=== PATIENT | female | born 1940 | race Caucasian/White ===

== ENCOUNTER 2020-02-13 12:20 | Outpatient (CLI) | payer MEDICARE, SELFPAY ==
--- NOTE | ~2020-02-13 | XR_ITS ---
XR hip LT min 2V 02/13/2020 12:41 Indication: Left hip pain Procedure: 3 views left hip Comparison: 05/28/2015 Findings: There is mild osteoarthritis of the left hip. No fracture, subluxation or subluxation. Ther e is lower lumbar spondylosis. Sacral foramen are symmetric. No significant soft tissue abnormality. Impression: 1: Mild osteoarthritis of the left hip. Reviewed, dictated and finalized at location A. Impression: 1: Mild osteoarthritis of the left hip.
--- NOTE | ~2020-02-13 | XR_ITS ---
EXAMINATION: XR lumbar spine 2-3V DATE: 02/13/2020 12:41 INDICATION: Lumbar radiculopathy TECHNIQUE: Anteroposterior and lateral views of the lumbar spine, and cone-down lateral view of the l umbosacral junction were obtained. COMPARISON: 12/05/2010 FINDINGS: There is no fracture. There is chronic moderate loss of intervertebral disc space height at L4-5. Mild chronic loss of intervertebral disc space height is present throughout the remainder of t he lumbar spine. The vertebral body heights and alignment are normal. Small degenerative osteophytes project from the anterior endplates of multiple vertebral bodies. There is moderate facet osteoarthri tis of the lower lumbar spine. IMPRESSION: 1. Mild to moderate lumbar spondylosis without acute findings or significant interval change. Reviewed, dictated and finalized at location A. IMPRESSION: 1. Mild to moderate lumbar spondylosis without acute findings or significant in terval change.
== END 2020-02-13 12:21 | disposition home or self-care (01) ==
LOC: ANHIMG 12:26
PROVIDERS: PCP Family Medicine; Visit Provider Physician Assistant
DX: M54.16 Radiculopathy, lumbar region (principal); M25.552 Pain in left hip; M47.816 Spondylosis without myelopathy or radiculopathy, lumbar region; M16.12 Unilateral primary osteoarthritis, left hip
CPT/HCPCS: 72100; 73502

== ENCOUNTER → 2020-04-02 11:12 | Outpatient (CLI) | payer MEDICARE, SELFPAY ==
--- NOTE | ~2020-04-02 | XR_ITS ---
EXAMINATION: XR knee LT 3V DATE: 04/02/2020 11:25 INDICATION: Left knee pain. TECHNIQUE: 3 views of left knee were obtained. COMPARISON: Left knee radiographs 08/17/2012 FINDINGS: Bone alignment is normal. No fracture. There is mild osteoarthritis of medial compartment a nd moderate osteoarthritis of lateral and patellofemoral compartments. No knee joint effusion. IMPRESSION: 1. Moderate left knee osteoarthritis. Reviewed, dictated and finalized at location A.
== END ==
PROVIDERS: PCP Family Medicine; Visit Provider Physician Assistant
DX: M17.12 Unilateral primary osteoarthritis, left knee (principal)
CPT/HCPCS: 73562

== ENCOUNTER 2020-04-23 17:03 | Outpatient (CLI) | payer MEDICARE, SELFPAY ==
--- NOTE | ~2020-04-23 | MM_ITS ---
EXAMINATION: MM screening kelli BI w tobin HISTORY: Screening TECHNIQUE: Craniocaudal and mediolateral oblique 3-D tomosynthesis images were obtained and synthetic 2-D images were generated. CAD analysis was submitted and interpreted. COMPARISON: Comparison to multiple prior studies sequentially, with oldest reviewed study dated 03/29. BREAST PARENCHYMAL COMPOSITION: There are scattered areas of fibroglandular density. FINDINGS: There is no evidence of suspicious mass, calcification, or architectural distortion to sugg est malignancy in either breast. There has been no suspicious interval change. IMPRESSION: 1. No mammographic evidence of malignancy. 2. Recommend routine screening mammography in one year. BI-RADS Category 1: Negative Reviewed, dictated and finalized at location A.
== END 2020-04-23 17:04 | disposition home or self-care (01) ==
LOC: ANHIMG 17:07
PROVIDERS: PCP Family Medicine; Visit Provider Family Medicine
DX: Z12.31 Encounter for screening mammogram for malignant neoplasm of breast (principal)
CPT/HCPCS: 77063; 77067

== ENCOUNTER 2020-05-30 14:27 | Outpatient (CLI) | payer MEDICARE, SELFPAY ==
--- NOTE | 2020-05-30 | ECG_ITS ---
Measurements Intervals [place] Rate: 59 P: 61 OK: 169 QRS: 28 QRSD: 102 T: 53 QT: 414 QTc: 413 Interpretive Statements SINUS BRADYCARDIA WITH SINUS ARRHYTHMIA DELAYED PRECORDIAL R/S TRANSITION MINIMAL Q WAVES- INFERIOR LEADS BASELINE WANDER- II, III BORDERLINE ECG Electronically Signed On 05-30-2020 15:39:56 CDT by Donald Graham D.O.
[2020-05-30 15:23] LABS: Hematocrit 37.2 % (37.0-47.0); Hemoglobin 12.3 g/dL (12.0-15.0)
[2020-05-30 15:44] LABS: Albumin Level 4.3 g/dL (3.5-5.1); Estimated Glomerular Filt Rate > 60; Glucose 159 mg/dL (65-105)
[2020-05-30 16:11] LABS: Urine Cotinine NEGATIVE
[2020-05-30 17:36] LABS: Hemoglobin A1C 6.8 % (<5.7)
== END 2020-05-30 14:28 | disposition home or self-care (01) ==
LOC: ANHLAB 14:35
PROVIDERS: PCP Family Medicine; Visit Provider Orthopaedic Surgery
DX: Z01.810 Encounter for preprocedural cardiovascular examination (principal); Z01.812 Encounter for preprocedural laboratory examination; M17.12 Unilateral primary osteoarthritis, left knee; I10 Essential (primary) hypertension; E11.9 Type 2 diabetes mellitus without complications; E78.5 Hyperlipidemia, unspecified
CPT/HCPCS: 80307; 82040; 82565; 82947; 83036; 85014; 85018; 93005

== ENCOUNTER 2020-09-16 14:08 | Outpatient (CLI) | payer MEDICARE, SELFPAY ==
[2020-09-16 15:39] LABS: Basophils Percent Auto 0.6 % (0.2-1.2); Eosinophils Absolute Auto 0.2 K/mm3 (0-0.3); Eosinophils Percent Auto 2.3 % (0-4.4); Hematocrit 39.6 % (37.0-47.0); Hemoglobin 13.4 g/dL (12.0-15.0); Immature Granulocyte Absolute 0.03 K/mm3 (0.00-0.031); Immature Granulocyte Percent A 0.4 % (0-0.5); Lymphocytes Absolute Auto 1.93 K/mm3 (0.9-3.2); Lymphocytes Percent Auto 27.7 % (18.3-44.2); Mean Corpuscular HGB Conc 33.8 g/dl (32-36); Mean Corpuscular Hemoglobin 31.8 pg (26-34); Mean Corpuscular Volume 93.8 fl (80-100); Mean Platelet Volume 9.3 fl (7.4-10.4); Monocytes Absolute Auto 0.5 K/mm3 (0.1-0.6); Monocytes Percent Auto 6.9 % (2.6-8.5); Neutrophils Absolute Auto 4.3 K/mm3 (1.3-6.7); Neutrophils Percent Auto 62.1 % (45.5-73.1); Platelet Count Result 226 k/mm3 (150-375); Red Blood Count 4.22 M/mm3 (4.2-5.4)
[2020-09-16 15:41] LABS: Albumin Level 4.4 g/dL (3.5-5.1)
[2020-09-16 15:42] LABS: Anion Gap 8 mmol/L (8-16); Blood Urea Nitrogen 12 mg/dL (7-17); Calcium 9.2 mg/dL (8.4-10.2); Carbon Dioxide 31 mmol/L (22-30); Chloride 103 mmol/L (98-107); Estimated Glomerular Filt Rate > 60; Glucose 100 mg/dL (65-105); Potassium 3.2 mmol/L (3.4-5.0); Sodium 142 mmol/L (137-145)
[2020-09-16 15:43] LABS: Urine Cotinine NEGATIVE
[2020-09-16 15:44] LABS: Hemoglobin A1C 6.7 % (<5.7)
== END 2020-09-16 14:09 | disposition home or self-care (01) ==
PROVIDERS: Anesthesiology; Family Provider Family Medicine; PCP Family Medicine; Visit Provider Orthopaedic Surgery
DX: M17.12 Unilateral primary osteoarthritis, left knee (principal); E11.9 Type 2 diabetes mellitus without complications; Z01.818 Encounter for other preprocedural examination
CPT/HCPCS: 36415; 80048; 80307; 82040; 83036; 85025; 86850; 86900; 86901; 87081

== ENCOUNTER → 2020-09-23 01:01 | Outpatient (CLI) | payer MEDICARE, SELFPAY ==
[2020-09-25 18:33] LABS: SARS-CoV-2 RNA PCR Inconclusive
== END ==
PROVIDERS: Family Provider Family Medicine; PCP Family Medicine; Visit Provider Orthopaedic Surgery
DX: Z01.812 Encounter for preprocedural laboratory examination (principal); Z20.822 Contact with and (suspected) exposure to COVID-19
CPT/HCPCS: C9803; U0003; U0005

== ENCOUNTER → 2020-10-07 00:22 | Outpatient (CLI) | payer MEDICARE, SELFPAY ==
[2020-10-07 19:33] LABS: SARS-CoV-2 RNA PCR Negative
== END ==
PROVIDERS: PCP Family Medicine; Visit Provider Orthopaedic Surgery
DX: Z01.812 Encounter for preprocedural laboratory examination (principal); Z20.822 Contact with and (suspected) exposure to COVID-19
CPT/HCPCS: C9803; U0003; U0005

== ENCOUNTER 2020-10-10 01:37 | Day surgery (SDC) | payer MEDICARE, SELFPAY ==
[2020-09-16 14:17] VITALS: BMI 32.9
[2020-09-16 15:20] VITALS: BP 160/72; PULSE 58; RESP 16; TEMP 36.9; O2SAT 99
--- NOTE | 2020-09-25 11:05 | WPDANESEPPF ---
Anes - Initial Pre Proc Eval Procedure: Operation Date: 09/26/20 07:30 Proposed Procedures p Left Total Knee Arthroplasty - Fabiano Johnson MD Date/Time: 09/25/20 11:05 Surgeon: Fabiano Johnson MD Pre Op Diagnosis: Primary OA left knee Patient Data Age: 79 Gender: F Height: 1.7 m Weight: 95.4 kg Last Vital Signs Temp 36.9 C 09/16/20 15:20 Pulse 58 L 09/16/20 15:20 Resp 16 09/16/20 15:20 BP 160/72 H 09/16/20 15:20 Pulse Ox 99 09/16/20 15:20 Allergies Allergy/AdvReac Type Severity Reaction Status Date / Time erythromycin base Allergy Unknown Rash Verified 09/16/20 14:22 meperidine [From Demerol] Allergy Unknown Nausea and Verified 09/16/20 14:32 Vomiting povidone Allergy Unknown RASH Verified 09/16/20 14:20 ENLAX Allergy Unknown Unknown Uncoded 09/16/20 14:21 Home Medications Medication Instructions Recorded Confirmed Type cholecalciferol (vitamin D3) 50 100 mcg PO BID 02/13/20 09/16/20 History mcg (2,000 unit) capsule glucagon 1 mg injection kit 1 mg .ROUTE PRN PRN 02/27/20 09/16/20 History insulin NPH isoph U-100 human 100 See Rx Instructions .ROUTE .COMPLEX 02/27/20 09/16/20 History unit/mL subcutaneous suspension insulin aspart U-100 100 unit/mL 36.95 unit SUB-Q DAILY ml 02/27/20 09/16/20 History subcutaneous solution tizanidine 4 mg tablet 4 mg PO TID PRN #90 tablet 05/27/20 09/16/20 Rx atorvastatin 10 mg tablet 10 mg PO DAILY #90 tablet 06/05/20 09/16/20 Rx losartan 50 mg tablet See Rx Instructions .ROUTE 07/26/20 09/16/20 Rx .COMPLEX #90 tablet Lactobacillus acidophilus 10,000 mmu cells PO DAILY 09/16/20 09/16/20 History [Probiotic] fluoxetine 20 mg PO HS 09/16/20 09/16/20 History furosemide 20 mg PO QAM 09/16/20 09/16/20 History liraglutide 0.6 mg/0.1 mL (18 mg/3 See Rx Instructions SUBCUT .COMPLEX 09/16/20 09/16/20 History mL) subcutaneous pen injector multivitamin 1 tablet PO DAILY 09/16/20 09/16/20 History omega-3 fatty acids 100 mg 100 mg PO DAILY 09/16/20 09/16/20 History chewable tablet vitamin B complex 1 tablet PO DAILY 09/16/20 09/16/20 History PMFSH Past Medical History Medical History (Updated 09/25/20 @ 11:06 by Chad Russ MD) Acute seasonal allergic rhinitis Benign essential hypertension with target blood pressure below 140/90 DM w/o complication type II, uncontrolled Essential (primary) hypertension Gastro-esophageal reflux disease without esophagitis Hereditary and idiopathic neuropathy, unspecified History of nummular eczema Lumbar radiculopathy Major depressive disorder, single episode, unspecified Mixed hyperlipidemia Obesity Organic sleep apnea, unspecified Other specified diabetes mellitus with diabetic neuropathy, unspecified Primary central sleep apnea Restless legs syndrome Symptomatic menopausal or female climacteric states Type 2 diabetes mellitus without complications Vitamin D deficiency, unspecified Surgical History Surgical History (Updated 05/30/20 @ 14:05 by Maria Dolores Mcmillan) History of cholecystectomy (~1989) History of hysterectomy (~1983) History of left knee surgery (~2009) Family History Family History (Updated 05/30/20 @ 14:06 by Maria Dolores Mcmillan) Grandparent Diabetes mellitus Family history of kidney disease Father Hypertension Family history of coronary artery disease Family history of elevated blood lipids Family history of cardiovascular disease Unknown Arthritis Parkinsons Other Acute myocardial infarction Social History Social History Smoking status: Never smoker Additional smoking assessment comments: DENIES ANY FORM OF TOBACCO USE Alcohol intake: current Spiritual care concerns: No Anes - Eval Final PreProcedure Day of Procedure 09/25/20 11:05 Patient weight: obese Heart: regular rate and rhythm Lungs: clear to auscultation and normal air movement Airway: Mallampati scale class
--- NOTE | 2020-09-25 11:06 | WPDANESPNB ---
Anes - Peripheral Nerve Block Date/Time: 09/25/20 11:06 I have discussed with the patient/family/POA the placement of a peripheral nerve block for post-operative pain management, including associated risks, benefits, complications, and side effects. Alternative methods of post-operative analgesia were detailed. Questions were solicited and answers provided to the satisfaction of the patient/family/POA. Time-Out: A pre-procedural Time-Out was completed immediately before starting the procedure and confirmed: Patient Identification, Site, Procedure, Patient Position and the Availability of Requisite Equipment. Clinical Indications: Acute post-operative pain management requested by the operative surgeon. Nerve Block Insertion Note Needle: 22 gauge, stimulating, insulated echogenic needle.
--- NOTE | 2020-09-25 18:34 | SUR.PREOP ---
patient contacted informed case canceled for 09/26/2020 due to failed Covid test advised to follow up with the office to reschedule. Message left on Dr Johnson's cell phone.
--- NOTE | 2020-10-09 11:23 | WPDANESEPPF ---
Anes - Initial Pre Proc Eval Procedure: Operation Date: 10/10/20 07:30 Proposed Procedures p Left Total Knee Arthroplasty - Fabiano Johnson MD Date/Time: 10/09/20 11:23 Surgeon: Fabiano Johnson MD Pre Op Diagnosis: Primary OA left knee Patient Data Age: 79 Gender: F Height: 1.7 m Weight: 95.4 kg Last Vital Signs Temp 36.9 C 09/16/20 15:20 Pulse 58 L 09/16/20 15:20 Resp 16 09/16/20 15:20 BP 160/72 H 09/16/20 15:20 Pulse Ox 99 09/16/20 15:20 Allergies Allergy/AdvReac Type Severity Reaction Status Date / Time povidone-iodine AdvReac Intermediate BAD RASH Verified 10/10/20 06:29 [From Betadine] soap [From Betadine] AdvReac Intermediate BAD RASH Verified 10/10/20 06:29 erythromycin base AdvReac Mild Nausea Verified 10/10/20 06:29 meperidine [From Demerol] AdvReac Mild Nausea and Verified 10/10/20 06:29 Vomiting Home Medications Medication Instructions Recorded Confirmed Type cholecalciferol (vitamin D3) 50 100 mcg PO BID 02/13/20 09/16/20 History mcg (2,000 unit) capsule glucagon 1 mg injection kit 1 mg .ROUTE PRN PRN 02/27/20 09/16/20 History insulin NPH isoph U-100 human 100 See Rx Instructions .ROUTE .COMPLEX 02/27/20 09/16/20 History unit/mL subcutaneous suspension insulin aspart U-100 100 unit/mL 36.95 unit SUB-Q DAILY ml 02/27/20 09/16/20 History subcutaneous solution tizanidine 4 mg tablet 4 mg PO TID PRN #90 tablet 05/27/20 09/16/20 Rx atorvastatin 10 mg tablet 10 mg PO DAILY #90 tablet 06/05/20 09/16/20 Rx losartan 50 mg tablet See Rx Instructions .ROUTE 07/26/20 09/16/20 Rx .COMPLEX #90 tablet Lactobacillus acidophilus 10,000 mmu cells PO DAILY 09/16/20 09/16/20 History [Probiotic] fluoxetine 20 mg PO HS 09/16/20 09/16/20 History furosemide 20 mg PO QAM 09/16/20 09/16/20 History liraglutide 0.6 mg/0.1 mL (18 mg/3 See Rx Instructions SUBCUT .COMPLEX 09/16/20 09/16/20 History mL) subcutaneous pen injector multivitamin 1 tablet PO DAILY 09/16/20 09/16/20 History omega-3 fatty acids 100 mg 100 mg PO DAILY 09/16/20 09/16/20 History chewable tablet vitamin B complex 1 tablet PO DAILY 09/16/20 09/16/20 History Patient hx anesthesia problems: none Family hx anesthesia problems: none PMFSH Past Medical History Medical History (Updated 09/25/20 @ 11:06 by Chad Russ MD) Acute seasonal allergic rhinitis Benign essential hypertension with target blood pressure below 140/90 DM w/o complication type II, uncontrolled Essential (primary) hypertension Gastro-esophageal reflux disease without esophagitis Hereditary and idiopathic neuropathy, unspecified History of nummular eczema Lumbar radiculopathy Major depressive disorder, single episode, unspecified Mixed hyperlipidemia Obesity Organic sleep apnea, unspecified Other specified diabetes mellitus with diabetic neuropathy, unspecified Primary central sleep apnea Restless legs syndrome Symptomatic menopausal or female climacteric states Type 2 diabetes mellitus without complications Vitamin D deficiency, unspecified Surgical History Surgical History (Updated 05/30/20 @ 14:05 by Maria Dolores Mcmillan) History of cholecystectomy (~1989) History of hysterectomy (~1983) History of left knee surgery (~2009) Family History Family History (Updated 05/30/20 @ 14:06 by Maria Dolores Mcmillan) Grandparent Diabetes mellitus Family history of kidney disease Father Hypertension Family history of coronary artery disease Family history of elevated blood lipids Family history of cardiovascular disease Unknown Arthritis Parkinsons Other Acute myocardial infarction Social History Social History Smoking status: Never smoker Additional smoking assessment comments: DENIES ANY FORM OF TOBACCO USE Alcohol intake: current Alcohol use details: ONE DRINK PER MONTH Living arrangements: with family Spiritual care concerns: No
--- NOTE | 2020-10-09 11:23 | WPDANESPNB ---
Anes - Peripheral Nerve Block Date/Time: 10/09/20 11:23 I have discussed with the patient/family/POA the placement of a peripheral nerve block for post-operative pain management, including associated risks, benefits, complications, and side effects. Alternative methods of post-operative analgesia were detailed. Questions were solicited and answers provided to the satisfaction of the patient/family/POA. Time-Out: A pre-procedural Time-Out was completed immediately before starting the procedure and confirmed: Patient Identification, Site, Procedure, Patient Position and the Availability of Requisite Equipment. Clinical Indications: Acute post-operative pain management requested by the operative surgeon. Nerve Block Insertion Note Anes-nerve block: adductor canal left Patient position: supine Skin prep: chlorhexidine Needle: 22 gauge, stimulating, insulated echogenic needle. Needle length: 80 mm Technique: ultrasound Injectate: bupivacaine 0.5% with epi 5 mcg/ml (30cc - no epi) Observations: tolerated well Complications: none Procedure start time:: 716 Procedure end time:: 719
[2020-10-10] VITALS (18 sets, daily range): BP systolic 132–174; BP diastolic 41–74; PULSE 60–107; RESP 14–20; TEMP 36.1–37.2; O2SAT 91–100
--- NOTE | ~2020-10-10 | XR_ITS ---
EXAMINATION: XR knee LT 2V DATE: 10/10/2020 09:46 INDICATION: Postoperative evaluation following left total knee arthroplasty. TECHNIQUE: Anteroposterior and lateral views of the left knee were obtained. COMPARISON: 09/16/2020 FINDINGS: Left total knee arthroplasty with patellar resurfacing appears well seated and in near anatomic align ment. No fractures identified. Expected postoperative subcutaneous and intra-articular gas. IMPRESSION: 1. Left total knee arthroplasty, negative for postoperative purposes. Reviewed, dictated and finalized at location A. PATHOLOGY TECHNOLOGIST
[2020-10-10] MEDS: LACTATED RINGERS 1,000 ML 30 ML IV CONT ×2 (06:35→09:29)
[2020-10-10 06:42] LABS: Glucose Point of Care 132 (65-105)
[2020-10-10] MEDS: ACETAMINOPHEN 500 MG TABLET 1000 MG PO (06:43)
[2020-10-10] MEDS: TRANEXAMIC ACID 1,000MG/ISO100 1,000 MG/100 ML BAG 200 MG IVPB (06:46)
--- NOTE | 2020-10-10 07:13 | WPDHPUPDATE1 ---
History and Physical Update Update Date/Time: 10/10/20 07:13 History and Physical has been reviewed, including an updated exam of the patient. There are NO changes in the patient's condition. Risks, benefits, and alternatives have been discussed and questions answered. Patient agrees to proceed with procedure.
--- NOTE | 2020-10-10 07:26 | SUR.PREOP ---
0655-PT UP TO BATHROOM TO VOID.
[2020-10-10] MEDS: ceFAZolin 2 GM/D5W 50 ML 2 GM/50 ML BAG IVPB (07:32)
[2020-10-10] MEDS: GENTAMICIN BONE CEMENT REFOBACIN 1 EACH TOPICAL (08:53)
[2020-10-10 09:34] LABS: Glucose Point of Care 158 (65-105)
--- NOTE | 2020-10-10 09:34 | P.OP_ITS ---
Procedure Note - Detailed Date of procedure: 10/10/20 Pre-op diagnosis: Primary OA left knee Post-op diagnosis: same Procedure performed: Total knee arthroplasty, left Description of procedure: Bone quality was fair. Mild lateral deformity did not require a release. The femur was cut at 6? due to femoral anatomy. 4? external rotation matched the AP axis. Gap measurements were equal. Implants: [employer] size 4 cemented femur, size 4 cemented low-profile tibia, 9mm CR polyethylene insert, 35mm asymmetric polyethylene patellar component. Anesthesia: GETA and regional (subsartorial nerve block) Surgeon: Fabiano Johnson MD Strategic Client Executive: Tessa Flores PA-C Estimated blood loss (mL): 200 Drains: No Complications: None Findings: Physician animal assistant, Tessa Flores PA-C, required for surgery; including patient positioning, draping, tissue retraction, maintaining instrument position, cement removal, wound closure, and dressing placement. OPERATIVE DETAILS: The patient was given a nerve block preoperatively, and then brought to the operating room. A general anesthetic was administered. The leg was prepped and draped in the usual sterile fashion. The limb was elevated and the tourniquet inflated to 300 mmHg during initial exposure, and cementation. A longitudinal incision was created along the medial border of the patella and patellar tendon, and a minimally invasive optimized mid-vastus approach to the knee was performed. No medial release was taken. The knee was then flexed. The osteophytes were carefully removed. The intramedullary guide was placed in the femoral canal. The distal femoral resection was then taken with the oscillating saw. The collateral ligaments were carefully protected. The tibia was carefully exposed. The jig was applied, and the proximal tibia was resected according to preoperative plan. The pain really anesthetic mixture was injected into the periarticular tissues. The knee was balanced in extension, and appropriate releases were taken where needed. The anterior cruciate ligament and meniscal remnants were removed. The posterior cruciate ligament was preserved. The patella was measured. Patellar resection was carried out with the oscillating saw. The lug holes drilled. The femur was sized and rotation assessed using a combination of gap balancing, posterior referencing, and the AP axis. The 4 in 1 cutting block was used to finish the femoral cuts after equal gaps were assured. The lug holes were drilled. The osteophytes were carefully removed from the back of the knee. The knee was copiously irrigated with antibiotic solution periodically throughout the procedure. The spacer block was used to confirm equal flexion and extension gaps. Further releases were performed as needed. The tibia was sized and broached. The bony surfaces were prepared for cementing with pulsatile lavage. The real tibial component and femoral components were cemented into position. Excess cement was carefully removed. The polyethylene insert was placed. The patella component was subsequently cemented. Patellar tracking was carefully assessed. No additional releases were required. The wound was closed with #1 Vicryl suture, #2 Quill suture, 4-Rbeihy-oli suture, and 2-0 Strata-fix suture followed by Steri-Strips. A sterile bulky dressing was applied. Meticulous hemostasis was maintained throughout the procedure. There were no complications. The patient was extubated and brought to the recovery room in stable condition after the application of sterile dressing with Ezekiel bandage.
[2020-10-10] MEDS: fentaNYL CITRATE INJ (*CRX) 100 MCG/2 ML VIAL 25 MCG IV PUSH ×4 (09:56→10:08)
[2020-10-10] MEDS: HYDROmorphone HCL INJ (*CRX) 1 MG/ML SYR 0.25 MG IV PUSH ×4 (10:15→10:36)
--- NOTE | 2020-10-10 11:30 | ADMGEN ---
This patient, Melanie Hutton, was admitted to 2 Medical Room 242-01. Patient/family oriented to hospital policies and general routines including ID bracelet, bed and alarms, visiting hours, pain management, procedures, bathroom and other care routines, personal items, smoking policy, room service/diet, and visiting hours. Information on how to activate the Rapid Response Team has been discussed. Patient/Family are encouraged to report perceived risks to care and to ask questions if they do not understand what they are told or what they should do.
[2020-10-10 12:50] LABS: Glucose Point of Care 184 (65-105)
--- NOTE | 2020-10-10 13:02 | PM.IMCN ---
Assessment and Plan Assessment and plan (1) S/P total knee arthroplasty: Code(s): Z96.659 - Presence of unspecified artificial knee joint Status: Acute Assessment and Plan: Postop care per orthopedic physician. DVT prophylaxis per Orthopedic. Pain management per Orthopedic. PT and OT per orthopedics. Patient is not having any discomfort at this time. The patient did receive a nerve block according to the surgical report. (2) DM2 (diabetes mellitus, type 2): Code(s): E11.9 - Type 2 diabetes mellitus without complications Status: Chronic Assessment and Plan: We can do Accu-Cheks AC and HS as this is what she does at home. Her last A1c was approximately 6.8. As per patient. The patient is able to manage her insulin pump so continue to her lower to do so we just need to check her blood sugars since her her dexa com is not working accurately at this time. Patient is also on Victoza which looks like that has continued. Non formulary I would recommend holding this while she is in the hospital. (3) Mixed hyperlipidemia: Code(s): E78.2 - Mixed hyperlipidemia Status: Chronic Assessment and Plan: Patient was continue with her atorvastatin and [place] 3 (4) Major depressive disorder, single episode, unspecified: Code(s): F32.9 - Major depressive disorder, single episode, unspecified Status: Chronic Assessment and Plan: Patient is continue with her Prozac. She states that her depression is under control. (5) Restless legs syndrome: Code(s): G25.81 - Restless legs syndrome Status: Chronic Assessment and Plan: Patient has Zanaflex and Flexeril ordered. I would recommend holding 1 of these medications. (6) Essential (primary) hypertension: Code(s): I10 - Essential (primary) hypertension Status: Chronic Assessment and Plan: Patient has been on Lasix which was continued per orthopedics and losartan. Continue to monitor her basic metabolic panel while she is in the hospital. (7) Organic sleep apnea, unspecified: Code(s): G47.30 - Sleep apnea, unspecified Status: Chronic Assessment and Plan: Patient has been provided with a CPAP machine from the hospital. HPI Data of Consult Consult date: 10/10/20 Requesting Physician: Fabiano Johnson MD Primary Care Provider: Marques Garcia MD Family Provider: Marques Garcia MD Consult Narrative Narrative: Melanie Hutton is a 79 year old female who has a history of bilateral knee pain. The left knee pain was worse than the right. Patient had arthroscopic surgery performed left knee in 2009. She has been having pain when she gets up from a sitting position to standing and also when walking. She has had an injection in that left knee in the past. The pain wakes her up at night. The patient electively underwent a left total knee arthroplasty by Dr. Rose today. According to the note the patient was given a nerve block preoperatively. She is not having any discomfort at this time. The patient is diabetic and has her own insulin pump. However her DEXA comm is not working adequately today. The patient stated that her last A1c was approximately 6.8. She is requesting that she continue to use her own insulin pump. She has the continuous basal rate as well as boluses. The patient says that she feels somewhat sleepy but is awake enough to be able to control her own pump at this time. Please see operative note. Thank you for this consultation. Review of Systems Review of Systems: All systems reviewed & are unremarkable except as noted in HPI and below Constitutional: Constitutional: Reports as per HPI and Reports no additional constitutional complaints Eyes: Eyes: Reports as per HPI and Reports no additional eye complaints ENT: Reports system reviewed and no additional complaints, except as documented and Reports Normal hearing present Cardiovascular: C
[2020-10-10] MEDS: LOSARTAN POTASSIUM 50 MG TABLET BY MOUTH (14:28)
[2020-10-10 14:45] LABS: Glucose Point of Care 192 (65-105)
[2020-10-10] MEDS: ONDANSETRON INJ 4 MG/2 ML VIAL IV PUSH (15:37)
[2020-10-10] MEDS: SODIUM CHLORIDE 0.9% IV 1,000 ML 125 ML IV CONT (15:38)
[2020-10-10 16:41] LABS: Glucose Point of Care 147 (65-105)
--- NOTE | 2020-10-10 16:52 | PM.DS ---
DS: Admitting Diagnosis Admitting Diagnosis Admitting Diagnosis: Left knee osteoarthritis. DS: Discharge Diagnosis Discharge Diagnosis (1) S/P total knee arthroplasty: Code(s): Z96.659 - Presence of unspecified artificial knee joint Status: Acute DS: Summary Hospital Course Reason for hospitalization: Total knee arthroplasty. Hospital Course: Tolerated surgery well. Progressed appropriately with therapy. Status at Discharge Functional status at discharge: uses cane/walker Overall status at discharge: patient is progressing back to baseline Time Spent with Patient Time attestation: Total time spent providing and/or coordinating discharge services: Exam Const: General: no acute distress Resp: Effort & Inspection: normal respiratory effort Skin: Other: Wound healing well. Mepilex dressing intact. No hematoma or drainage. Neuro: Motor exam (neuro): 5/5 motor strength present throughout Sensory Exam: normal sensation Psych: Mental Status: mental status grossly normal Speech and movement: Normal speech and movement present DS: Data Data Completed and Pending Labs on day of discharge: Labs from last 24 hours 10/10/20 10/10/20 10/10/20 16:39 14:37 12:45 POC Capillary Glucose 147 H 192 H 184 H Blood Type Antibody Screen 10/10/20 10/10/20 10/10/20 09:33 06:40 06:25 POC Capillary Glucose 158 H 132 H Blood Type A Positive Antibody Screen Negative Discharge Plan Discharge Patient Disposition: Home, Self-Care Discharge Instructions: See instruction sheet. Stand Alone Forms: General Discharge Instructions Follow-up/Referrals: Fabiano Johnson MD [Physician] - Discharge Medications: New oxycodone-acetaminophen 5-325 mg tablet 1 - 2 tablet PO Q4-6H MDD 6 tablets PRN (Reason: pain) Qty: 30 RF: 0 aspirin 81 mg Tablet,Delayed Release (Dr/Ec) 81 mg PO BID Qty: 14 RF: 0 Continued cholecalciferol (vitamin D3) 50 mcg (2,000 unit) capsule 100 mcg PO BID RF: 0 glucagon 1 mg kit 1 mg .Route PRN PRN (Reason: Hyperglycemia) RF: 0 insulin aspart U-100 [Novolog U-100 Insulin aspart] 100 unit/mL solution 36.95 unit SUB-Q DAILY RF: 0 Novolin N NPH U-100 Insulin 100 unit/mL suspension See Rx Instructions .ROUTE .COMPLEX RF: 0 vitamin B complex [B Complex-Vitamin B12] Tablet 1 tablet PO DAILY RF: 0 Victoza 2-Khadar 0.6 mg/0.1 mL (18 mg/3 mL) pen injector See Rx Instructions subcut .COMPLEX RF: 0 multivitamin [Daily Multi-Vitamin] Tablet 1 tablet PO DAILY RF: 0 omega-3 fatty acids 100 mg tablet,chewable 100 mg PO DAILY RF: 0 fluoxetine 20 mg capsule 20 mg PO HS RF: 0 furosemide 20 mg tablet 20 mg PO QAM RF: 0 Probiotic 10 billion cell Capsule 10,000 mmu cells PO DAILY RF: 0 tizanidine 4 mg tablet 4 mg PO TID PRN (Reason: muscle spasticity) Qty: 90 RF: 11 atorvastatin 10 mg tablet 10 mg PO DAILY Qty: 90 RF: 3 losartan 50 mg tablet See Rx Instructions .ROUTE .COMPLEX Qty: 90 RF: 0 Quality VTE Prophylaxis VTE prophylaxis: mechanical ordered
[2020-10-10] MEDS: DOCUSATE SODIUM 100 MG CAPSULE PO (17:30)
[2020-10-10] MEDS: ASPIRIN 81 MG ENTERIC TABLET PO (17:30)
[2020-10-10] MEDS: CHOLECALCIFEROL 1,000 UNITS TABLET 4000 UNITS PO (17:31)
[2020-10-10] MEDS: MELOXICAM 7.5 MG TABLET PO (17:32)
[2020-10-10] MEDS: FLUoxetine HCL 20 MG CAPSULE PO (20:25)
[2020-10-10 22:41] LABS: Glucose Point of Care 151 (65-105)
[2020-10-10] MEDS: oxyCODONE HCL (*CRX) 5 MG TAB IR PO (23:18)
[2020-10-11 01:40] VITALS: PULSE 60; O2SAT 99
[2020-10-11 03:16] VITALS: BP 165/54; PULSE 65; RESP 16; TEMP 36.4; O2SAT 98
[2020-10-11 05:23] LABS: Basophils Percent Auto 0.3 % (0.2-1.2); Eosinophils Absolute Auto 0.1 K/mm3 (0-0.3); Eosinophils Percent Auto 0.8 % (0-4.4); Hemoglobin 10.4 g/dL (12.0-15.0); Immature Granulocyte Absolute 0.05 K/mm3 (0.00-0.031); Immature Granulocyte Percent A 0.6 % (0-0.5); Lymphocytes Absolute Auto 1.46 K/mm3 (0.9-3.2); Lymphocytes Percent Auto 16.2 % (18.3-44.2); Mean Corpuscular HGB Conc 33.5 g/dl (32-36); Mean Corpuscular Hemoglobin 31.8 pg (26-34); Mean Corpuscular Volume 94.8 fl (80-100); Mean Platelet Volume 9.6 fl (7.4-10.4); Monocytes Absolute Auto 0.8 K/mm3 (0.1-0.6); Monocytes Percent Auto 9.2 % (2.6-8.5); Neutrophils Absolute Auto 6.6 K/mm3 (1.3-6.7); Neutrophils Percent Auto 72.9 % (45.5-73.1); Platelet Count Result 167 k/mm3 (150-375); Red Blood Count 3.27 M/mm3 (4.2-5.4)
[2020-10-11 05:46] LABS: Anion Gap 1 mmol/L (8-16); Blood Urea Nitrogen 14 mg/dL (7-17); Carbon Dioxide 29 mmol/L (22-30); Chloride 108 mmol/L (98-107); Estimated CRCL calculation 61 ml/min; Estimated Glomerular Filt Rate > 60; Glucose 126 mg/dL (65-105); Potassium 4.1 mmol/L (3.4-5.0); Sodium 138 mmol/L (137-145)
[2020-10-11] MEDS: oxyCODONE HCL (*CRX) 5 MG TAB IR PO ×2 (06:07→11:09)
[2020-10-11 07:21] LABS: Glucose Point of Care 179 (65-105)
[2020-10-11] MEDS: HOME MEDICATION 1 EACH XX (07:56)
[2020-10-11 08:21] VITALS: BP 134/47; PULSE 59; RESP 16; TEMP 35.5; O2SAT 96
[2020-10-11] MEDS: CHOLECALCIFEROL 1,000 UNITS TABLET 4000 UNITS PO (09:24)
[2020-10-11] MEDS: VITAMIN B COMPLEX CAPSULE 1 CAP PO (09:25)
[2020-10-11] MEDS: MULTIVITAMINS THERAPEUTIC TAB (*BKC) 1 TABLET PO (09:25)
[2020-10-11] MEDS: ACIDOPHILUS/BULGARICUS CHEWABLE TABLET 1 TABLET PO (09:25)
[2020-10-11] MEDS: FUROSEMIDE 20 MG TABLET PO (09:25)
[2020-10-11] MEDS: DOCUSATE SODIUM 100 MG CAPSULE PO (09:26)
[2020-10-11] MEDS: LOSARTAN POTASSIUM 50 MG TABLET BY MOUTH (09:26)
[2020-10-11] MEDS: ASPIRIN 81 MG ENTERIC TABLET PO (09:27)
[2020-10-11] MEDS: MELOXICAM 7.5 MG TABLET PO (09:27)
--- NOTE | 2020-10-11 10:07 | PM.IMPN ---
Progress Note: A&P Assessment and Plan (1) S/P total knee arthroplasty: Code(s): Z96.659 - Presence of unspecified artificial knee joint Status: Acute Assessment and Plan: POD [address] Johnson. Doing well post op. Plans for discharge today. Okay for discharge from medical standpoint Post op care, pain management, PT/OT, DVT ppx per primary service F/u with Ortho and PCP as outpatient (2) DM2 (diabetes mellitus, type 2): Code(s): E11.9 - Type 2 diabetes mellitus without complications Status: Chronic Assessment and Plan: BGL seems well controlled at this time. A1c earlier this month was 6.7. Patient has insulin pump Continue home medications and insulin pump at discharge Accuchecks ACHS, hypoglycemia protocol, correctional insulin, diabetic diet during stay (3) Mixed hyperlipidemia: Code(s): E78.2 - Mixed hyperlipidemia Status: Chronic Assessment and Plan: Continue home medications (4) Major depressive disorder, single episode, unspecified: Code(s): F32.9 - Major depressive disorder, single episode, unspecified Status: Chronic Assessment and Plan: No acute issues Continue home medications (5) Restless legs syndrome: Code(s): G25.81 - Restless legs syndrome Status: Chronic Assessment and Plan: No acute issues Continue home medications (6) Essential (primary) hypertension: Code(s): I10 - Essential (primary) hypertension Status: Chronic Assessment and Plan: BP was elevated yesterday but nursing reports she was unable to take losartan due to n/v. 130s most recently Continue home medications Instructed patient to check BP once daily after discharge to monitor BP (7) Organic sleep apnea, unspecified: Code(s): G47.30 - Sleep apnea, unspecified Status: Chronic Assessment and Plan: CPAP during stay Additional Plan Thank you for allowing the Hospitalist team to care for this patient during their stay. Okay for discharge from medical standpoint; will sign off if patient does not discharge today. Please call with any questions Subjective Date/time seen: 10/11/20 10:07 This is a Hospitalist Consult Progress Note Interval history: Patient is a 79 yo F with history of HTN, DMII (has insulin pump), GERD, MDD, among other comorbid conditions who is here for elective left TKA per Dr. Johnson POD1; Hospitalist group consulted for medical management of comorbid conditions. Patient states she is doing well today. Pain well controlled. Has sensation in her left leg/foot. Anticipating discharge today. She notes she had some n/v yesterday and was unable to take some of her home BP meds, but is feeling fine today. No other complaints. Denies f/c/s, headaches, dizziness, lightheadedness, cp/palpitations, sob/cough, n/v/d/c, abd pain, changes in BMs, dysuria, hematuria, cloudy urine Review of Systems Review of Systems: All systems reviewed & are unremarkable except as noted in HPI and below Exam Narrative: Exam Narrative: General: Patient resting supine in bed in no acute distress. HEENT: Normocephalic, EOMI, oral mucosa moist. Cardiovascular: Rate and rhythm are regular. No notable murmur, rub, or gallop. Respiratory: Lungs clear to auscultation anterolateral lung yuan. Non-labored breathing. Abdomen: Soft, non-tender, non-distended, bowel sounds present. Extremities: Peripheral pulses intact. No edema. NTTP b/l calves. Left knee has ice pack applied. Left leg NVI distal to surgical site Neuro: No focal neurological deficits. Speech is clear. Objective Data Vital Signs Vital Signs: Last Vital Signs Temp 96 F L 02/
--- NOTE | 2020-10-11 10:50 | WPDANESPN ---
Anes - Prog Note Post-Op Date/Time: 10/11/20 10:50 Cardiovascular status: normal Respiratory status: normal Airway patency: baseline Mental status: baseline Post-Op hydration status: normal Vital Signs: Last Vital Signs Temp 35.5 C L 10/11/20 08:21 Pulse 59 L 10/11/20 08:21 Resp 16 10/11/20 08:21 BP 134/47 L 10/11/20 08:21 Pulse Ox 96 10/11/20 08:21 Pain Score (VAS): 0 I/O: Intake & Output 10/10/20 10/11/20 10/11/20 23:59 07:59 15:59 Intake Total 1300 450 100 Balance 1300 450 100 Laboratory Tests 10/11/20 04:58 10/11/20 04:58 10/10/20 10/10/20 10/10/20 12:45 14:37 16:39 WBC RBC Hgb Hct MCV MCH MCHC RDW Plt Count MPV Immature Gran % (Auto) Neut % (Auto) Lymph % (Auto) [place] % (Auto) Eos % (Auto) Baso % (Auto) Lymph # (Auto) [place] # (Auto) Eos # (Auto) Baso # (Auto) Abs Immat Gran (auto) Absolute Neuts (auto) Absolute Nucleated RBC Nucleated RBC % Sodium Potassium Chloride Carbon Dioxide Anion Gap BUN Creatinine Estim Creat Clear Calc Estimated GFR Glucose POC Capillary Glucose 184 H 192 H 147 H Calcium 10/10/20 10/11/20 10/11/20 21:51 04:58 04:58 WBC 9.0 RBC 3.27 L Hgb 10.4 L D Hct 31.0 L MCV 94.8 MCH 31.8 MCHC 33.5 RDW 13.0 Plt Count 167 MPV 9.6 Immature Gran % (Auto) 0.6 H Neut % (Auto) 72.9 Lymph % (Auto) 16.2 L [place] % (Auto) 9.2 H Eos % (Auto) 0.8 Baso % (Auto) 0.3 Lymph # (Auto) 1.46 [place] # (Auto) 0.8 H Eos # (Auto) 0.1 Baso # (Auto) 0.0 Abs Immat Gran (auto) 0.05 H Absolute Neuts (auto) 6.6 Absolute Nucleated RBC 0.0 Nucleated RBC % 0.0 Sodium 138 Potassium 4.1 Chloride 108 H Carbon Dioxide 29 Anion Gap 1 L BUN 14 Creatinine 0.80 Estim Creat Clear Calc 61 Estimated GFR > 60 Glucose 126 H POC Capillary Glucose 151 H Calcium 8.0 L 10/11/20 07:07 WBC RBC Hgb Hct MCV MCH MCHC RDW Plt Count MPV Immature Gran % (Auto) Neut % (Auto) Lymph % (Auto) [place] % (Auto) Eos % (Auto) Baso % (Auto) Lymph # (Auto) [place] # (Auto) Eos # (Auto) Baso # (Auto) Abs Immat Gran (auto) Absolute Neuts (auto) Absolute Nucleated RBC Nucleated RBC % Sodium Potassium Chloride Carbon Dioxide Anion Gap BUN Creatinine Estim Creat Clear Calc Estimated GFR Glucose POC Capillary Glucose 179 H Calcium Post-procedural complaints: none Patient Feedback: Patient satisfied with anesthetic care.
[2020-10-11 10:54] VITALS: BP 157/54; PULSE 62; RESP 16; TEMP 36.3; O2SAT 98
--- NOTE | 2020-10-11 14:18 | PC.NURSE ---
On 10/11/20, the student, [Steven Mann ], provided care and completed [facility] documentation on this patient. I have reviewed the student's documentation and agree with the findings.
== END 2020-10-11 11:11 | disposition home or self-care (01) ==
LOC: ANHSURGERY 05:59 → ANH2MED 11:47
PROVIDERS: Family Provider Family Medicine; PCP Family Medicine; Visit Provider Orthopaedic Surgery
PROC: (CPT 27447; principal; 2020-10-10 07:30)
DX: M17.12 Unilateral primary osteoarthritis, left knee (principal); G89.18 Other acute postprocedural pain; I10 Essential (primary) hypertension; E11.9 Type 2 diabetes mellitus without complications; K21.9 Gastro-esophageal reflux disease without esophagitis; L30.9 Dermatitis, unspecified; G47.31 Primary central sleep apnea; G25.81 Restless legs syndrome; E11.40 Type 2 diabetes mellitus with diabetic neuropathy, unspecified; E55.9 Vitamin D deficiency, unspecified; E78.2 Mixed hyperlipidemia; M54.16 Radiculopathy, lumbar region; F32.9 Major depressive disorder, single episode, unspecified; Z90.49 Acquired absence of other specified parts of digestive tract
CPT/HCPCS: 64447; 27447; 36415; 73560; 80048; 82948; 85025; 86850; 86900; 86901; 97110; 97116; 97161; 97165; 97530; 97535; A9270; C1713; C1776; J0131; J0171; J0690; J1170; J1885; J2270; J2405; J2704; J2795; J3010; J7030; J7120

== ENCOUNTER 2020-11-01 12:58 | Outpatient (CLI) | payer MEDICARE, SELFPAY | END 2020-11-01 12:59 | disposition home or self-care (01) | LOC: ANHCOVIDVC 12:58 | PROVIDERS: PCP Family Medicine | DX: Z23 Encounter for immunization (principal) | CPT/HCPCS: 0001A; 91300 ==

== ENCOUNTER 2020-11-22 13:00 | Outpatient (CLI) | payer MEDICARE, SELFPAY | END 2020-11-22 13:01 | disposition home or self-care (01) | LOC: ANHCOVIDVC 13:00 | PROVIDERS: PCP Family Medicine | DX: Z23 Encounter for immunization (principal) | CPT/HCPCS: 0002A; 91300 ==

== ENCOUNTER 2021-04-25 14:10 | Outpatient (CLI) | payer MEDICARE, SELFPAY ==
--- NOTE | ~2021-04-25 | MM_ITS ---
EXAMINATION: MM screening [facility] BI w [facility]bin HISTORY: Screening mammogram TECHNIQUE: Craniocaudal and mediolateral oblique 3-D tomosynthesis images were obtained and synthetic 2-D images were generated. CAD analysis was submitted and interpreted. COMPARISON: 04/23/2020, 04/11/2019, 03/16/2018 by lateral digital screening mammogram examinations BREAST PARENCHYMAL COMPOSITION: The breasts are almost entirely fatty. FINDINGS: There is no evidence of suspicious mass, calcification, or architectural distortion to sugg est malignancy in either breast. There has been no suspicious interval change. IMPRESSION: 1. No mammographic evidence of malignancy. 2. Recommend routine screening mammography in one year. BI-RADS Category 1: Negative Reviewed, dictated and finalized at location A.
== END 2021-04-25 14:11 | disposition home or self-care (01) ==
PROVIDERS: PCP Family Medicine; Visit Provider Family Medicine
DX: Z12.31 Encounter for screening mammogram for malignant neoplasm of breast (principal)
CPT/HCPCS: 77063; 77067

== ENCOUNTER 2021-05-23 10:21 | Emergency (ER) | payer MEDICARE, SELFPAY ==
--- NOTE | ~2021-05-23 | CT_ITS ---
EXAMINATION: CT cervical spine wo con DATE: 05/23/2021 13:45 INDICATION: Right shoulder pain and weakness post lifting injury TECHNIQUE: Computed tomography (CT) of the cervical spine was performed without intravenous contrast. Automated exposure control and iterative reconstruction technique were employed. The dose-length pro duct was 347.22 mGy-cm. COMPARISON: None FINDINGS: 1 mm anterolisthesis C3 on C4 and 1-2 mm anterolisthesis C4 on C5. Vertebral body heights are normal. No fracture. Mild disc height loss at C4-C5 and C5-C6. Atherosclerotic calcifications at the bilater al carotid bulbs. Cervical soft tissues are otherwise unremarkable. Visualized portions of the spheno id sinus, bilateral mastoid air cells and middle ear cavities, airway and apices of lungs are clear. The following disc levels are specifically discussed: C2-C3: Disc is mildly bulging. There is mild bilateral uncovertebral joint osteoarthritis. There is m ild right facet joint osteoarthritis. The left facet joint is fused. There is no neural foraminal arely nosis. There is minimal central canal stenosis. C3-C4: Risk is mildly bulging. There is altered left and minimal right uncovertebral joint osteoarthr itis. There is mild right and moderate left facet joint osteoarthritis. There is minimal left neural foraminal stenosis. There is minimal central canal stenosis. C4-C5: Disc is mildly bulging. There is mild bilateral uncovertebral joint osteoarthritis. There is m oderate bilateral facet joint osteoarthritis. There is no neural foraminal stenosis. There is minimal central canal stenosis. C5-C6: Mild posterior disc osteophyte complex. There is mild to moderate bilateral uncovertebral join t osteoarthritis. There is mild bilateral facet joint osteoarthritis. There is mild left neural madhuri inal stenosis. There is mild central canal stenosis. C6-C7: Disc is bulging. There is mild bilateral uncovertebral joint osteoarthritis. There is mild rig ht and mild to moderate left facet joint osteoarthritis. There is no neural foraminal stenosis. There is mild central canal stenosis. C7-T1: The disc does not extend beyond the endplate margin. There is mild right uncovertebral joint o steoarthritis. There is mild bilateral facet joint osteoarthritis. There is no neural foraminal steno sis. There is no central canal stenosis. IMPRESSION: 1. Mild cervical spondylosis. No acute osseous abnormality. Reviewed, dictated and finalized at location A.
--- NOTE | ~2021-05-23 | CT_ITS ---
EXAMINATION: CT thoracic spine wo con DATE: 05/23/2021 13:45 INDICATION: Right shoulder pain and weakness. Thoracic spine injury. TECHNIQUE: Computed tomography (CT) of the thoracic spine was performed without intravenous contrast. Automated exposure control and iterative reconstruction technique were employed. The dose-length pro duct was 890.98 mGy-cm. COMPARISON: None FINDINGS: There is 9 degrees levocurvature of thoracic spine. Vertebral body heights are normal. Ther e is mildly decreased disc height at multiple levels in mid thoracic spine. There is multilevel facet joint osteoarthritis, severe on the right at T2-T3 and T3-T4 and on the left at T1-T2 and T2-T3. The re is multilevel mild neural foraminal stenosis bilaterally. There is moderate neural foraminal steno sis on the right at T3-T4. There is mild central canal stenosis at T10-T11 and T12-L1. IMPRESSION: 1. No fracture. 2. Mild thoracic spondylosis. Reviewed, dictated and finalized at location A.
[2021-05-23 10:28] VITALS: BP 174/70; PULSE 60; RESP 20; TEMP 36.8; O2SAT 99
[2021-05-23 11:07] VITALS: BP 186/73; PULSE 52; RESP 18; O2SAT 100
--- NOTE | 2021-05-23 14:18 | ED.NECK ---
HPI - Neck Pain/Injury General Chief Complaint: Extremity Injury, Upper Stated Complaint: right shoulder pain Time Seen by Provider: 05/23/21 12:19 Source: patient Mode of arrival: ambulatory Limitations: no limitations History of Present Illness complaint: neck pain Onset (ago): week(s) (1) Place: home Radiation: right lateral and right shoulder Severity: moderate Quality: sharp and throbbing Duration: constant Relieving factors: none and remaining still Exacerbating factors: movement of extremity and movement of neck Context: unknown Associated symptoms: tingling (R shoulder) Treatments prior to arrival: ibuprofen and other (prednisone) Related Data Home Medications Medication Instructions Recorded Confirmed cholecalciferol (vitamin D3) 50 100 mcg PO BID 02/13/20 03/11/21 mcg (2,000 unit) capsule glucagon 1 mg injection kit 1 mg .ROUTE PRN PRN 02/27/20 03/11/21 insulin NPH isoph U-100 human 100 See Rx Instructions .ROUTE .COMPLEX 02/27/20 03/11/21 unit/mL subcutaneous suspension insulin aspart U-100 100 unit/mL 36.95 unit SUB-Q DAILY ml 02/27/20 03/11/21 subcutaneous solution Probiotic 10,000 mmu cells PO DAILY 09/16/20 03/11/21 liraglutide 0.6 mg/0.1 mL (18 mg/3 See Rx Instructions SUBCUT .COMPLEX 09/16/20 03/11/21 mL) subcutaneous pen injector multivitamin 1 tablet PO DAILY 09/16/20 03/11/21 omega-3 fatty acids 100 mg 100 mg PO DAILY 09/16/20 03/11/21 chewable tablet vitamin B complex 1 tablet PO DAILY 09/16/20 03/11/21 Allergies Allergy/AdvReac Type Severity Reaction Status Date / Time povidone-iodine AdvReac Intermediate BAD RASH Verified 05/23/21 11:12 [From Betadine] soap [From Betadine] AdvReac Intermediate BAD RASH Verified 05/23/21 11:12 erythromycin base AdvReac Mild Nausea Verified 05/23/21 11:12 meperidine [From Demerol] AdvReac Mild Nausea and Verified 05/23/21 11:12 Vomiting Review of Systems Review of Systems: CONSTITUTIONAL: no fever, no weight loss, no confusion EYES: no vision changes, no eye pain ENT: no rhinorrhea, no sore throat, no difficulty swallowing Neck: neck pain, no torticollis CARDIOVASCULAR: no chest pain, no leg edema, no palpitations RESPIRATORY: no cough, no shortness of breath, no hemoptysis GASTROINTESTINAL: no abdominal pain, no nausea, no vomiting, no diarrhea GENITOURINARY: no flank pain, no dysuria, no hematuria SKIN: no rash, no jaundice MUSCULOSKELETAL: no back pain, no trauma. NEUROLOGIC: No headache, no dizziness, no focal weakness PSYCHIATRIC: No hallucinations, no suicidal ideation [facility] Past Medical History Medical History Acute seasonal allergic rhinitis Benign essential hypertension with target blood pressure below 140/90 Diabetic retinopathy DM w/o complication type II, uncontrolled DM2 (diabetes mellitus, type 2) Essential (primary) hypertension Gastro-esophageal reflux disease without esophagitis Hereditary and idiopathic neuropathy, unspecified History of nummular eczema Lumbar radiculopathy Macular degeneration Major depressive disorder, single episode, unspecified Mixed hyperlipidemia Obesity Organic sleep apnea, unspecified Other specified diabetes mellitus with diabetic neuropathy, unspecified Primary central sleep apnea Restless legs syndrome Symptomatic menopausal or female climacteric states Type 2 diabetes mellitus without complications Vitamin D deficiency, unspecified Surgical History Surgical History History of cholecystectomy (~1989) History of hysterectomy (~1983) History of left knee surgery (~2009) S/P total knee arthroplasty On the left Family History Family History Grandparent Diabetes mellitus Family history of kidney disease Father Hypertension Family history of coronary artery disease Family history of elevated blood lipids Fa
[2021-05-23 15:44] VITALS: PULSE 57; RESP 18; TEMP 36.3; O2SAT 100
== END 2021-05-23 15:46 | disposition home or self-care (01) ==
PROVIDERS: Emergency Provider Emergency Medicine; PCP Family Medicine
DX: M47.812 Spondylosis without myelopathy or radiculopathy, cervical region (principal); E11.319 Type 2 diabetes mellitus with unspecified diabetic retinopathy without macular edema; E11.40 Type 2 diabetes mellitus with diabetic neuropathy, unspecified; H35.30 Unspecified macular degeneration; I10 Essential (primary) hypertension; K21.9 Gastro-esophageal reflux disease without esophagitis; E78.2 Mixed hyperlipidemia; G47.31 Primary central sleep apnea; E55.9 Vitamin D deficiency, unspecified; G60.9 Hereditary and idiopathic neuropathy, unspecified; Z96.652 Presence of left artificial knee joint; Z79.4 Long term (current) use of insulin; M47.814 Spondylosis without myelopathy or radiculopathy, thoracic region
CPT/HCPCS: 72125; 72128; 99284

== ENCOUNTER 2024-10-16 01:40 | Inpatient (IN) | payer MEDICARE, SELFPAY ==
[2024-10-16] VITALS (23 sets, daily range): BP systolic 108–177; BP diastolic 47–78; PULSE 45–55; RESP 11–144; TEMP 36.6–37.2; O2SAT 96–100; BMI 31.6
--- NOTE | ~2024-10-16 | XR_ITS ---
EXAMINATION: XR chest 2V DATE: 10/19/2024 09:06 INDICATION: Pacer placement. TECHNIQUE: Frontal and lateral views of the chest were obtained. COMPARISON: Chest view 10/18/2024, CT thoracic spine 05/23/2021 FINDINGS: The lung volumes are normal. There is a diffuse interstitial pattern in the lungs with a lo wer lung predominance. There are small pleural effusions. No pneumothorax. The heart size is normal. There is a left chest wall pacer with leads in the right atrium and right ventricle. Surgical clips i n the right upper quadrant are likely from cholecystectomy. IMPRESSION: 1. Diffuse interstitial pattern in the lungs, consistent with mild pulmonary edema and/or chronic int erstitial lung disease. 2. Small pleural effusions. Reviewed, dictated and finalized at location [] ONAL SERVICE OFFICER IMPRESSION: 1. Diffuse interstitial pattern in the lungs, consistent with mild pulmonary ed louann and/or chronic interstitial lung disease. 2. Small pleural effusions.
--- NOTE | ~2024-10-16 | XR_ITS ---
Portable chest x-ray Comparison: 05/20/2017 Clinical History: Chest pain Findings: Probable mild bibasilar chronic interstitial change or COPD change. Cardiomediastinal jose houette is stable. Bones and soft tissues are unremarkable. Impression: No definite acute abnormality. COPD and/or bibasilar chronic interstitial change. Reviewed, dictated and finalized at [facility]. L NUMERICAL CONTROL PROGRAMMER Impression: No definite acute abnormality. COPD and/or bibasilar chronic interstitial change.
--- NOTE | ~2024-10-16 | XR_ITS ---
XR chest 1V portable Ordering provider: Kenyon Snow MD History: 83 years Female with . pacemaker insertion . Comparison: October 16, 2024 FINDINGS: MEDIASTINUM: The cardiac silhouette is not enlarged. Left bipolar pacemaker. Slightly congestive kathia . LUNGS: No effusions or pneumothorax. Bilateral interstitial changes which may indicate pneumonitis ve rsus edema. Underlying fibrotic changes are not excluded. Clinical correlation advised. Prominent markings in the lower lobes are noted. OTHER: No free air under the diaphragm. IMPRESSION: No significant change from previous examination. Reviewed, dictated and finalized at location A. AGE HANDLER
--- OUTSIDE RECORDS SUMMARY | 2024-10-16 01:42 | XMS_ITS | Encounter Summary ---
Author Organization [facility] Address [address] [place] [address] Care Team Providers Care Toolroom Helper Name Role Phone Joshua Muir MD Primary Care Provider Encounter Details Date Type Department Care Team (Late st Contact Info) Description 10/02/2024 Results Follow-Up [facility] Family Medicine at [address] [place] [id number] Joshua Muir MD [address] [place] [address] [id number] Social History Tobacco Use Types Packs/Day Years Used Date Smoking Tobacco: Never Smokeless Tobacco: Never AUDIT-C Answer Date Recorded Q1: How often do you have a drink containing alc ohol? Monthly or less 08/30/2023 Q2: How many drinks containi ng alcohol do you have on a typical day when you are drinking? 1 or 2 08/30/2023 Q3: How often do you have si x or more drinks on one occasion? 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
--- OUTSIDE RECORDS SUMMARY | 2024-10-16 01:42 | XMS_ITS | Encounter Summary ---
Author Organization [facility] Healthcare Address [address] [place] [address] Care Team Providers Care [employer]anc[employer] Name Role Phone Cachorro Garcia MD Primary Care Provider [phone] Reason for Visit * Diagnostic Imaging (Routine) - Closed Specialty Diagnoses / Procedures Referred By Leti rice Referred To Contact Procedures Breast Imaging Screening Outside Reference Referral, Self Referral ID Status Reason Start Date Expiration Date Visits Re quested Visits Authorized [id number] Closed 08/20/2022 09/19/2023 1 1 Encounter Details Date Type Department Care Team (Late st Contact Info) Description 03/16/2018 Hospital Encounter [facility] [address] [place] [address] Social History Tobacco Use Types Packs/Day Years [...] on file Legal Sex Female 3:58 AM UI APPLICATION DEVELOPER Gender Identity Not on file Sexual Orientation Not on file documented as of this encounter Functional Status * Audit-C Score Answer Date of Assessment Author 1 08/30/2023 2:01 PM Curt Rehman MA * Question Answer Date of Assessment Author Q1: How often do you have a drink containing alcohol? Monthly or less 08/30/2023 2:01 PM Sindhu Rehman MA Q2: How many drinks containing alcohol do you have on a typical day when you are drinking? 1 or 2 08/30/2023 2:01 PM Solange Rehman MA Q3: How often do you have six or more drinks on one occasion? Never 08/30/2023 2:01 PM Sindhu Rehman MA documented as of this encounter Plan of Treatment Not on file documented as of this encounter Procedures Procedure Name Priority Date/Time Associated Diagnosis Comments BREAST IMAGING MG SCREENING OUTSIDE REFERENCE Routine 03/16/2018 12:00 AM CDT documented in this encounter Results * Breast Imaging Screening Outside Reference (03/16/2018 12:00 AM CDT) Impressions [facility] - 08/20/2022 11:27 AM UI APPLICATION DEVELOPER These images are for Reference purposes only and have not been reviewed by [facility]. There will be no report generated by a [facility] Radiologist. Narrative [facility] - 08/20/2022 11:27 AM UI APPLICATION DEVELOPER EXAMINATION: Images For Reference Purposes Only us Self Referral IMG MAMMO PROCEDURES Final Resul t [facility] documented in this encounter Visit Diagnoses Not on filedocumented in this encounter Care Teams [employer] Relationship Specialty Start Date End Date Cachorro Garcia MD [address] [place] [address] PCP - General 12/07/16 06/11/21 documented as of this encounter
--- OUTSIDE RECORDS SUMMARY | 2024-10-16 01:43 | XMS_ITS | Encounter Summary ---
Author Organization [facility] Healthcare Address [address] [place] [address] Care Team Providers Care Axle Turner Name Role Phone Cachorro Garcia MD Primary Care Provider Reason for Visit * Diagnostic Imaging (Routine) - Closed Specialty Diagnoses / Procedures Referred By Leti rice Referred To Contact Procedures Breast Imaging Screening Outside Reference Referral, Self Referral ID Status Reason Start Date Expiration Date Visits Re quested Visits Authorized [id number] Closed 08/20/2022 09/19/2023 1 1 Encounter Details Date Type Department Care Team (Late st Contact Info) Description 04/11/2019 Hospital Encounter [facility] [address] [place] [id number] Social History Tobacco Use Types Packs/Day Years [...] on file Legal 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 There will be no report generated by a [facility] Radiologist. Narrative [facility] - 08/20/2022 11:27 AM LIGHT INDUSTRIAL SUPERVISOR EXAMINATION: Images For Reference Purposes Only us Self Referral IMG MAMMO PROCEDURES Final Resul t [facility] documented in this encounter Visit Diagnoses Not on filedocumented in this encounter Care Teams Axle Turner Relationship Specialty Start Date End Date Cachorro Garcia MD [address] [place] [address] PCP - General 12/07/16 06/11/21 documented as of this encounter
--- OUTSIDE RECORDS SUMMARY | 2024-10-16 01:43 | XMS_ITS | Clinical Summary ---
Author Organization [facility] Address [address] [place] [address] Care Team Providers Care Flexible Babysitter Name Role Phone Joshua Muir MD Primary Care Provider [phone] Allergies Active Allergy Reactions Criticality Noted Date Comments Erythromycin Hives Medium Medications insulin syringe-needle U-100 1/2 mL 31 gauge x 15/64 syringe USE DIRECTED WHEN OFF PUMP 05/29/20 15 Active yuybheys-tpm-b jaj-HH-bfqyyw 8 mg iron-400 mcg-300 mcg tablet daily. 09/28/19 12 Active omega 3-jro-zkp-fish oil 300-1,000 mg capsule daily. 09/28/19 12 Active lancets 28 gauge misc test 6 times daily as directed 03/23/20 12 Active cholecalcifero l (VITAMIN D-3) 2000 unit capsule take 2 capsule bid 09/28/19 12 Active blood glucose diagnostic (FREESTYLE LITE STRIPS) strip Use to test blood sugar 3 times a day Freestyle lite Dx Code E11.42 100 each 11 12/21/19 19 Active magnesium 30 mg tablet Take 1 tablet (30 mg total) by mouth 2 (two) times a day Active calcium acetate,phosph at bind, (PHOSLO) 667 mg tablet Take 2 tablets (1,334 mg total) by mouth 3 (three) times a day with meals Active pen needle, diabetic (BD Ultra-Fine Mini Pen Needle) 31 gauge x 3/16 needleIndicati ons:Type 2 diabetes mellitus with hyperglycemia, with long-term current use of insulin (HCC) Use daily with victoza 100 each 3 08/31/19 24 Active furosemide (LASIX) 20 mg tablet TAKE 1 TABLET EVERY DAY 90 tablet 3 03/22/20 24 Active atorvastatin (LIPITOR) 10 mg tablet TAKE 1 TABLET EVERY DAY 90 tablet 3 03/22/20 24 Active losartan (COZAAR) 50 mg tablet TAKE 1 TABLET EVERY DAY 90 tablet 3 03/22/20 24 Active diphenhydrAMIN E 25 mg capsule Take 1 tablet/capsule (25 mg total) by mouth nightly as needed for sleep Active semaglutide 0.25 mg or 0.5 mg (2 mg/3 mL) pen injector injectionIndic ations:type 2 diabetes mellitus Inject 0.5 mg under the skin once a week 9 mL 3 08/22/19 25 026 Active Additional Information Patient taking differently:0.5 mg subcutaneous Weekly,Finishing victosa before starting, Indications: type 2 diabetes mellitus, Reported on 10/02/2024 gabapentin (NEURONTIN) 100 mg capsuleIndicat ions:Diabetic Peripheral Neuropathy Take 1 capsule (100 mg total) by mouth 3 (three) times a day 90 capsule 11 08/22/19 25 Active glucagon 1 mg kitIndications :Type 2 diabetes mellitus with hyperglycemia, with long-term current use of insulin ([facility]) Inject for severe hypoglycemia 1 kit 2 08/22/19 25 Active insulin aspart (NovoLOG) 100 unit/mL vial for injectionIndic ations:Type 2 diabetes mellitus with hyperglycemia, with long-term current use of insulin ([facility]) Use 140 units daily via insulin pump. Dx E11.42 130 mL 3 08/22/19 25 Active tobramycin-dex AMETHasone (TOBRADEX) ophthalmic solution INSTILL 1 DROP IN THE LEFT EYE 4 TIMES PER DAY FOR 1 WEEK 08/04/20 24 025 Discontinu ed(Therapy completed) benzonatate (TESSALON) 200 mg capsule Take 1 capsule (200 mg total) by mouth 3 (three) times a day as needed for cough for up to 7 days 20 capsule 09/18/19 25 025 doxycycline (VIBRAMYCIN) 100 mg capsule Take 1 tablet/capsule (100 mg total) by mouth 2 (two) times a day for 10 days 20 tablet/capsu le 09/18/19 25 025 levoFLOXacin (LEVAQUIN) 750 mg tablet Take 1 tablet (750 mg total) by mouth daily for 7 days 7 tablet 10/04/19 25 025 Active Problems Problem Noted Date Diagnosed Date Dysuria 05/23/2024 Assessment & Plan (05/23/2024 1:09 PM CDT): New problem x1 mo. Will obtain UA/Cx. Verified that she uses mychart. Aware to check results/results letter in [employer]. Will contact by phone if needed. Aware to increase water intake. Will sent message with results. Verified abx allergy only to erythromycin. Verified pharmacy. Push fluids-water/cranberry juice Avoid caffeine Wash before and after sex Urinate right after sex Use dove type soap in vaginal area-no scents or dyes Take showers not baths, no bubble baths Proper wiping technique discussed Hypertension associated with type 2 diabetes zora litus 12/02/2022 Assessment & Plan (08/22/2024 12:59 PM WINDOWS SERVER SPECIALIST): Chronic problem. Controlled on current regimen. Currently taking Losartan 50mg daily, lasix 20mg daily. No changes at this time. Assessment & Plan (05/23/2024 1:07 PM CDT): Chronic problem. Controlled on current regimen. Currently taking Losartan 50mg daily, lasix 20mg daily. No changes at this time. Assessment & Plan (02/23/2024 1:00 PM CDT): Chronic problem. Controlled on current regimen. Currently taking Losartan 50mg daily, lasix 20mg daily. No changes at this time. Assessment & Plan (08/31/2023 1:26 PM WINDOWS SERVER SPECIALIST): Chronic problem. Controlled on current regimen. Currently taking Losartan 50mg daily, lasix 20mg daily. No changes at this time. Assessment & Plan (06/07/2023 10:19 AM CDT): Chronic problem. Controlled on current regimen. Currently taking Losartan 50mg daily, lasix 20mg daily. No changes at this time. Assessment & Plan (03/09/2023 2:47 PM CDT): Chronic, well controlled Importance of low salt diet and exercise were discussed Continue current meds Assessment & Plan (12/03/2022 1:11 PM CDT): Chronic problem. Controlled on current regimen. Currently taking Losartan 50mg daily, lasix 20mg daily. No changes at this time. Hyperlipidemia associated with type 2 diabetes usama kang 12/02/2022 Assessment & Plan (08/22/2024 12:59 PM WINDOWS SERVER SPECIALIST): Chronic problem. Controlled on current Atorvastatin 10mg. Last lipid panel: 01/11/24 LDL=64, XC=222 No changes at this time. Assessment & Plan (05/23/2024 1:07 PM CDT): Chronic problem. Controlled on current Atorvastatin 10mg. Last lipid panel: 01/11/24 LDL=64, SF=579 No changes at this time. Assessment & Plan (08/31/2023 1:26 PM WINDOWS SERVER SPECIALIST): Chronic problem. Controlled on current Atorvastatin 10mg. Last lipid panel: 05/10/23 LDL=71, XE=225. No changes at this time. Assessment & Plan (06/07/2023 10:19 AM CDT): Chronic problem. Controlled on current Atorvastatin 10mg. Last lipid panel: 05/10/23 LDL=71, PC=458. No changes at this time. Assessment & Plan (12/03/2022 12:59 PM CDT): Chronic problem. Controlled on current Atorvastatin 10mg. Last lipid panel: 07/28/22 LDL=69, TG=99. No changes at this time. Insulin pump status 12/02/2022 Assessment & Plan (08/22/2024 1:48 PM WINDOWS SERVER SPECIALIST): Pump setting changes -decreased 12a from 0.9 to 0.8 units/hr -decreased 4a from 0.9 to 0.8 units/hr Current medications: Ozempic 0.25mg weekly x 4 weeks then increase to 0.5mg weekly. Novolog via T-Slim with CIQ on Basal rates: 12a 1.0, 4a, 1.0, 8a 1.35, 2p 1.35, 4p 1.5 CF 12a 15, 4p 20, 8p 15, 10p 8 CR 12a 35, 8a 3.5, 2p 15, 4p 3.0 Target 100 AIT 5 Assessment & Plan (05/23/2024 12:11 PM CDT): Rec'd new pump & tried to put in her own pump settings but were off from [facility]. Re-entered pump settings. Pump setting changes: Overnoc lows more frequently. Decreased 12a & 4a from 1.0 to 0.9 units/hr Current medications: Victoza 1.8mg daily Humalog via T-Slim with CIQ on Basal rates: 12a 0.9, 4a, 0.9, 8a 1.35, 2p 1.35, 4p 1.5 CF 12a 15, 4p 20, 8p 15, 10p 8 CR 12a 3.5, 2p 3 Target 100 AIT 5 Assessment & Plan (02/23/2024 1:33 PM CDT): No pump setting changes at this time. Assessment & Plan (11/23/2023 2:51 PM CDT): The patient has long acting insulin including Tresiba and insulin syringes to use as a backup in case of pump failure Assessment & Plan (08/31/2023 1:27 PM WINDOWS SERVER SPECIALIST): No pump setting changes at this time. Assessment & Plan (06/07/2023 10:30 AM CDT): No pump setting changes today. Assessment & Plan (12/03/2022 1:34 PM CDT): No pump setting changes. Osteopenia 04/27/2022 Assessment & Plan (04/27/2022 2:17 PM CDT): -DXA on 12/26/21 indicated osteopenia of the left proximal femur with T Score of -1.7 -S/P hysterectomy in her 50s; took HRT for approximately 20 years. -Will continue supplemental Vitamin D -Continue to monitor convalescent sitter associated with adverse incidents 02/02/2022 Assessment & Plan (02/05/2022 6:34 AM CDT): She is adept in using and managing the insulin pump and CGM. Chronic cervical pain 06/12/2021 CHRISTINE (generalized anxiety disorder) 06/12/2021 Medicare annual wellness visit, subsequent 02/07 Insulin long-term use ([facility]) 02/07/2021 Retinopathy 08/05/2020 Diabetic peripheral neuropathy ([facility]) 013 Assessment & Plan (08/22/2024 1:50 PM WINDOWS SERVER SPECIALIST): Chronic problem. Currently taking Gabapentin 100mg daily. Reviewed foot care; needs to lotion daily. Aware to check feet nightly, not to go barefoot. Assessment & Plan (05/23/2024 1:05 PM CDT): Chronic problem. Currently taking Gabapentin 100mg bid. Reviewed foot care; needs to lotion daily. Aware to check feet nightly, not to go barefoot. Assessment & Plan (02/23/2024 1:01 PM CDT): Chronic problem. Currently taking Gabapentin 100mg bid. Reviewed foot care; needs to lotion daily. Aware to check feet nightly, not to go barefoot. Assessment & Plan (11/23/2023 2:51 PM CDT): Chronic, stable. Foot care was discussed. Continue gabapentin, 100 mg at bedtime, which also helps her with sleep Assessment & Plan (09/10/2022 4:26 PM WINDOWS SERVER SPECIALIST): Foot care discussed Start gabapentin Vitamin D deficiency 11/22/2012 Assessment & Plan (02/05/2022 9:30 AM CDT): Continue daily over the counter supplements. Assessment & Plan (11/28/2021 8:56 AM CDT): -Continue current Vitamin D supplement Assessment & Plan (09/01/2021 3:24 PM WINDOWS SERVER SPECIALIST): -Continue current Vitamin D supplement Assessment & Plan (06/20/2018 2:01 PM WINDOWS SERVER SPECIALIST): level > 30 07/31, on vitamin D supplementation, will check level Hyperlipidemia 09/30/2011 Assessment & Plan (04/27/2022 2:13 PM CDT): -Last labs dated December 2021: TC 131 Trig 103 HDL 45 LDL 65 -Will continue same medical management Assessment & Plan (02/05/2022 9:30 AM CDT): LDL is at goal; 12/2021- LDL 65 Continue statin therapy. Assessment & Plan (11/28/2021 8:56 AM CDT): -Last LDL was 71 in June 2021 -Will continue statin as it is being tolerated without side effects Assessment & Plan (09/03/2021 12:27 PM WINDOWS SERVER SPECIALIST): -Last LDL was 71 in June 2021 -Will continue statin as it is being tolerated without side effects Assessment & Plan (06/20/2018 2:00 PM WINDOWS SERVER SPECIALIST): on statin. LDL 54 06/01--> recheck Diabetic cataract ([facility]) 09/28/2011 Hypertension 09/28/2011 Assessment & Plan (04/27/2022 2:13 PM CDT): -BP today is 134/72 -Will continue same antihypertensive medications at this time and continue to monitor Assessment & Plan (12/01/2021 2:46 PM CDT): -BP today is 146/70 -Will continue same antihypertensive medications at this time and continue to monitor Assessment & Plan (09/03/2021 12:27 PM WINDOWS SERVER SPECIALIST): -BP today is 153/83 -Will continue same antihypertensive medications at this time and continue to monitor Assessment & Plan (06/20/2018 2:00 PM WINDOWS SERVER SPECIALIST): On ARB Type 2 diabetes mellitus with hyperglycemia ([facility]) 09/28/2011 Assessment & Plan (08/22/2024 1:56 PM WINDOWS SERVER SPECIALIST): Chronic problem. A1c at goal/stable at 6.9%05/23/24 to now 7.0% having persistent overnoc lows. Unable to download Tandem pump as website down. Pump setting changes below. Insurance will no longer send Victoza. Will replace Victoza daily injection with Ozempic weekly. Will start 0.25mg weekly x 4 weeks then increase to 0.5mg weekly. Pump setting changes -decreased 12a from 0.9 to 0.8 units/hr -decreased 4a from 0.9 to 0.8 units/hr Current medications: Ozempic 0.25mg weekly x 4 weeks then increase to 0.5mg weekly. Novolog via T-Slim with CIQ on Basal rates: 12a 0.8, 4a, 0.8, 8a 1.35, 2p 1.35, 4p 1.5, 8p 1.5 CF 12a 15, 4a 20, 8a 15 4p 20, 8p 8, 10p 8 CR 12a 3.5, 4a 3, 8a 3, 2p 3, 4p 3.0, 8p 3, 10p 3 Target 110 AIT 5 UTD on labs UTD on DM eye exam (07/2024 Dr Rahman, letter sent to get exam report). Strive for regular exercise (30min most days) and diet (get at least 4-5 servings of fruit and veggies daily, avoid processed foods, increase lean protein intake and decrease carb portions as well as fruit juices, regular soda & desserts). Watch carbs and simple sugars. Check the blood sugar dexcom G6. Check the feet daily for skin breakdown and infection. Assessment & Plan (05/23/2024 1:07 PM CDT): Chronic problem. A1c at goal/stable at 6.9% with overnoc hypoglycemia. Rec'd new pump & tried to put in her own pump settings but were off from [facility]. Re-entered pump settings. Pump setting changes: Overnoc lows more frequently. Decreased 12a & 4a from 1.0 to 0.9 units/hr Current medications: Victoza 1.8mg daily Humalog via T-Slim with CIQ on Basal rates: 12a 0.9, 4a, 0.9, 8a 1.35, 2p 1.35, 4p 1.5 CF 12a 15, 4p 20, 8p 15, 10p 8 CR 12a 3.5, 2p 3 Target 100 AIT 5 UTD on labs UTD on DM eye exam (09/07/23 Dr Rahamn, letter sent to get exam report). Strive for regular exercise (30min most days) and diet (get at least 4-5 servings of fruit and veggies daily, avoid processed foods, increase lean protein intake and decrease carb portions as well as fruit juices, regular soda & desserts). Watch carbs and simple sugars. Check the blood sugar dexcom G6. Check the feet daily for skin breakdown and infection. Assessment & Plan (02/23/2024 1:32 PM CDT): Chronic problem. A1c at goal/stable at 6.9% without hypoglycemia. No changes at this time. Current medications: Victoza 1.8mg daily Humalog via T-Slim CIQ on BR: 12a 1.0, 4a, 1.35, 8a 1.3, 10a 1.35, 2p 1.2, 4p 1.5 CF 12a 15, 4p 20, 8p 15, 10p 8 CR 12a 3.5, 2p 3 Target 100 AIT 5 UTD on labs UTD on DM eye exam (09/07/23 Dr Rahman, letter sent to get exam report). Strive for regular exercise (30min most days) and diet (get at least 4-5 servings of fruit and veggies daily, avoid processed foods, increase lean protein intake and decrease carb portions as well as fruit juices, regular soda & desserts). Watch carbs and simple sugars. Check the blood sugar dexcom G6. Check the feet daily for skin breakdown and infection. Assessment & Plan (11/23/2023 2:50 PM CDT): Chronic, stable Continue NovoLog via T slim insulin pump, with current settings Continue Victoza 1.8 mg daily. The patient is going to have dental procedure with anesthesia so she is told to hold Victoza 1 week before Assessment & Plan (08/31/2023 2:29 PM WINDOWS SERVER SPECIALIST): Chronic problem. A1c at goal 6.9% without hypoglycemia. Current medications: Victoza 1.8mg daily Humalog via T-Slim Basal rates: 12a 1.0, 4a, 1.35, 8a 1.3, 10a 1.35, 2p 1.2, 4p 1.5 CF 12a 15, 4p 20, 8p 15 CR 12a 3.5, 2p 3 Target 100 AIT 5 UTD on labs UTD on DM eye exam (scheduled next week at Dr Rahman, will send letter to get exam report). Strive for regular exercise (30min most days) and diet (get at least 4-5 servings of fruit and veggies daily, avoid processed foods, increase lean protein intake and decrease carb portions as well as fruit juices, regular soda & desserts). Watch carbs and simple sugars. Check the blood sugar dexcom. Check the feet daily for skin breakdown and infection. Assessment & Plan (06/07/2023 10:20 AM CDT): Chronic problem. A1c at goal 7.1%,. Current medications: Humalog via T-Slim Basal rates: 12a 1.15, 4a, 1.55, 8a 1.5, 10a 1.35, 2p 1.3, 4p 1.65 CF 12a 15, 4p 20, 8p 15 CR 12a 3.5, 2p 3 Target 100 AIT 5 UTD on labs UTD on DM eye exam Strive for regular exercise (30min most days) and diet (get at least 4-5 servings of fruit and veggies daily, avoid processed foods, increase lean protein intake and decrease carb portions as well as fruit juices, regular soda & desserts). Watch carbs and simple sugars. Check the blood sugar dexcom. Check the feet daily for skin breakdown and infection. Assessment & Plan (03/09/2023 2:46 PM CDT): Hba1c was Lab Results Component Value Date HGBA1C 6.5 03/09/2023 today, indicating adequate DM control with hypoglycemia Goal Hba1c and blood glucose explained Diet and exercise were advised Prevention and treatment of hyypoglcyemia were discussed with the patient Blood glucose monitoring : DEXCOM Adjustment to medications: Basa rates adjusted as follows : 12am 1.0 4a. 1.35 8am 1.3 10am 1.35 2pm 1.2 4pm 1.4 8-m 1.5 10pm 1.5 Assessment & Plan (12/03/2022 1:39 PM CDT): Chronic problem. No changes on current settings. Please call Dr Cristobal at the [facility] to set up your follow-up appointment. Current medications: Humalog via T-Slim Basal rates: 12a 1.15, 4a, 1.55, 8a 1.5, 10a 1.35, 2p 1.3, 4p 1.65 CF 12a 15, 4p 20, 8p 15 CR 12a 3.5, 2p 3 Target 100 AIT 5 Office will contact Ian to get her added to our account. Assessment & Plan (09/10/2022 4:26 PM WINDOWS SERVER SPECIALIST): Hba1c was Lab Results Component Value Date HGBA1C 6.5 09/10/2022 today, indicating adequate DM control with some hypoglycemia Goal Hba1c and blood glucose explained Diet and exercise were advised Prevention and treatment of hyypoglcyemia were discussed with the patient Blood glucose monitoring : continue with DEXCOM Adjustment to medications: Pump settings adjusted as follows : These are your pump settings: Basal SF IC TG 12a 1.15 15 3.5 110 4am 1.55 15 3.5 110 8am 1.5 15 3.5 10a 1,35 15 3.5 2p 1.30 15 3 110 4p 1.65 20 3 110 8p 1.65 15 3 110 10p 1.65 15 3 110 In case of pump failure, take : Tresiba, 35 units every 24 hours Take Novolog, 15 units with each meal For sugars over 200, take 20 units Resolved Problems Problem Noted Date Diagnosed Date Resolved Date Other specified hypothyroidism 07/13/2018 02/08/2024 Assessment & Plan (02/05/2022 9:35 AM CDT): Subclinical; not taking thyroid medications. 12/2021- TSH 5.03 (0.30-4.20), Free T4 0.84 (0.90-1.70) Cramps of lower extremity 12/25/2015 Type 2 diabetes mellitus wit h diabetic polyneuropathy 06/11/2015 02/08/2024 Assessment & Plan (08/31/2023 1:26 PM WINDOWS SERVER SPECIALIST): Chronic problem. Currently taking gabapentin 100mg bid. Aware to check feet nightly & not go barefoot. Assessment & Plan (06/07/2023 10:30 AM CDT): Chronic problem. Currently taking gabapentin 100mg bid. Aware to check feet nightly. Assessment & Plan (12/03/2022 1:33 PM CDT): Chronic problem. Currently taking gabapentin 100mg tid. Aware to check feet nightly. Discussed at time of the appt: she can increase the gabapentin in the evening. Option is to take early evening & again at bedtime (100mg) or take two 100mg capsules at bedtime. Assessment & Plan (04/27/2022 2:12 PM CDT): -Currently taking Victoza and Novolog per Tandem insulin pump with Dexcom -A1C was 6.6% in 02/02/22 (it has not been 90 days since last A1C so it could not be repeated today. -Dexcom download indicates stable glucose pattern, with minimal post-meal excursions. Will continue same pump settings at this time. -Discussed diet and activity modifications. -Advised to call with any concerns/complaints regarding glucose readings -Eye exam is up to date -Following with the foot nurse on a regular basis for routine foot care. Assessment & Plan (02/05/2022 1:38 PM CDT): Hemoglobin A1c has been stable at 6.6%, with minimal hypoglycemia. Continue using Dexcom + Tandem insulin pump for integrated technology. She is tolerating Victoza 1.8mg well and without side effects at this time. Recommend decreasing afternoon and overnight basal rates, but she prefers to adjust the overnight basal rate and will continue to snack, if needed, in the afternoons to prevent hypoglycemia. She is also taking losartan daily. Assessment & Plan (12/01/2021 2:33 PM CDT): -Currently taking Victoza and Novolog per Tandem insulin pump with Dexcom -A1C was 6.6% on 12/01/21. -Dexcom download indicates stable pattern with time in range of 88%. Will continue same insulin pump settings for now and continue to monitor. -Discussed diet and activity modifications. -Advised to call with any concerns/complaints regarding glucose readings -Eye exam is up to date Assessment & Plan (09/03/2021 12:26 PM WINDOWS SERVER SPECIALIST): -Currently taking Victoza and Novolog per Tandem insulin pump with Dexcom -A1C was 6.6% on 09/03/21 - Dexcom download indicates a stable glucose pattern with time in range of 90%. She have scattered post-meal excursions, but these are not consistent. Will continue same insulin pump settings for now. -Discussed diet and activity modifications. -Advised to call with any concerns/complaints regarding glucose readings -Eye exam is up to date -Foot exam with foot nurse today Assessment & Plan (09/19/2018 4:43 PM WINDOWS SERVER SPECIALIST): Diabetes is stable, no changes to pump, discussed how to cover post meal highs with dynamic arrow changes based on sensitivity. Sensitivity is 15 No changes to pump settings. Assessment & Plan (06/20/2018 1:59 PM WINDOWS SERVER SPECIALIST): well controlled type 2 DM with neuropathy: No changes made. Urine microalbumin:Cr ratio negative 08/01, will recheck CMP 06/01 --> recheck TSH normal 06/01 --> recheck B12 normal 12/29. -continue current pump settings -low labs ordered: Skin callus 06/20/2013 02/08/2024 Onychomycosis due to dermatophyte 09/08/2012 02/08/2024 Slowing of urinary stream 09/28/2011 Weight decreasing 09/28/2011 02/08/2024 Sleep apnea syndrome 09/28/2011 024 Diverticulitis of colon 09/28/201111/15 Encounters Date Type Department Care Team Description 10/04/2024 Orders Only [facility] Medical [facility] at [address] [place] [address] Joshua Muir MD 10/02/2024 10:45 AM WINDOWS SERVER SPECIALIST Lab [facility] Medical Office Bldg [address] OP Lab [address] [place] [id number] Type 2 diabetes mellitus with hyperglycemia, with long-term current use of insulin (HCC); Primary hypertension 10/02/2024 10:26 AM WINDOWS SERVER SPECIALIST - 10/02/2024 11:59 PM WINDOWS SERVER SPECIALIST Hospital Encounter [facility] Di[facility] [address] [place] [phone] Subacute cough Discharge Disposition: Discharge to home or self care 10/02/2024 9:30 AM WINDOWS SERVER SPECIALIST Office Visit [facility] at [address] [phone] Joshua Muir MD Subacute cough (Primary Dx); Type 2 diabetes mellitus with hyperglycemia, with long-term current use of insulin (HCC); Primary hypertension 10/02/2024 Results Follow-Up [facility] at [address] [phone] Joshua Muir MD 09/18/2024 6:45 PM WINDOWS SERVER SPECIALIST Telemedicine [facility] Medical [facility] Care [address] [place] [phone] Becky Ramos NP Acute cough (Primary Dx); Post-nasal drainage 09/18/2024 Patient Self-Triage [facility] [address] [place] [phone] Mychart, Generic Provider 09/15/2024 Patient Self-Triage [facility] [address] [place] [address] Mychart, Generic Provider 09/04/2024 2:45 PM WINDOWS SERVER SPECIALIST Office Visit [facility] at [address] [place] [address] Joshua Muir MD Medicare annual wellness visit, subsequent (Primary Dx); Osteopenia of multiple sites; Primary hypertension 08/30/2024 Orders Only [facility] [address] [place] [phone] ProviderAltagracia MD 08/24/2024 Telephone [facility] [address] [place] [phone] Rosalinda Valles NP Prior Auth (Ozempic) 08/22/2024 1:00 PM WINDOWS SERVER SPECIALIST Office Visit [facility] [address] [place] [phone] Rosalinda Valles NP Type 2 diabetes mellitus with hyperglycemia, with long-term current use of insulin (HCC) (Primary Dx); Hypertension associated with type 2 diabetes mellitus (HCC); Hyperlipidemia associated with type 2 diabetes mellitus (HCC); Diabetic peripheral neuropathy (CMS/HCC) (HCC); Insulin pump status 08/22/2024 Telephone [facility] Diabetes and Endocrinology [address] [place] [phone] Rosalinda Valles NP [employer] from Last 3 Months Immunizations Immunization Administration Dates Next Due Hep A, Adult 08/18/2000,02/11/2000 Influenza, Quadrivalent, Hig h Dose, Preservative Free, Intrr 06/07/2023,05/04/2022,05/16/2021,04/26 Influenza, Quadrivalent, Rec ombinant, Egg Free, Preservative Free, Intramuscular 06/09/2018 Influenza, Quadrivalent, Spl it, Preservative Free, Intramuscular 06/01/2016 Influenza, Trivalent, High D ose, Split, Preservative Free, Intramuscular 06/13/2019 Influenza, Trivalent, Preser vative Free, Intramuscular 06/01/2016,05/13/2015,06/01/2013,05/16,05/18/2011 Influenza, Unspecified 04/17/2024,05/29/2021 Pfizer SARS-CoV-2 Monovalent Vaccination (12+ Yrs) PURPLE 05/04/2022 Pneumococcal Conjugate Pcv20 08/30/2023 Pneumococcal Polysaccharide PPV23 07/16/2008 Sars-cov-2 Covid-19 Mrna, Bi valent, Original/omicron Ba.1 07/19/2023 Td, adsorbed 02/11/2000 Surgical History Surgery Date Site/Laterality Comments HYSTERECTOMY 08/16/1983 - 08/15/1984 Hysterectomy - 1983 (Added by Conv) CHOLECYSTECTOMY Cholecystectomy - 1994 (Added by TW Conv) APPENDECTOMY SECTION JOINT REPLACEMENT 2020 OOPHORECTOMY 08/16/1983 - 08/15/1984 Bilateral EYE SURGERY 09/25/2024 Left cataract Medical History Medical History Date Comments Cramp and spasm Cramps of lower extremity - (Added by TW Conv) 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) Diabetic peripheral neuropat hy - (Added by TW Conv) Vitamin D deficiency Vitamin D d eficiency - (Added by TW Conv) Anxiety Arthritis Osteoporosis 03/06 Depression Hypertension Sleep apnea Kidney stone 1979 Family History Medical History Relation Name Comments Arthritis Father Taras Barreto Depression Father Taras Barreto Hearing loss Father Taras Barreto Heart disease Father Taras Barreto Heart Disease - (Added by TW Conv) Hyperlipidemia Father Taras Barreto Hypertension Father Taras Oakleyne Memory loss Father Taras Oakleyne Diabetes Father's Brother Rl Barreto COPD Mother Elsa Barreto Breast cancer Mother's Sister Anjana Hawkins Cancer Mother's Sister Anjana Hawkins Thyroid disease Other 1 Thyroid Diso rder - father (Added by TW Conv) Diabetes type II Other 2 Type 2 Diab etes Mellitus - uncle (Added by TW Conv) Heart disease Other 3 Heart Disease - (Added by TW Conv) Obesity Paternal Grandmother Barreto Learning disabilities Son 1 Arnulfo Cancino Obesity Son 1 Arnulfo Cancino Obesity Son 2 Otis Cancino Relation Name Status Comments Father Taras Barreto Father's Brother Rl Barreto Mother Elsa Barreto Mother's Sister Anjana Hawkins Other 1 Other 2 Other 3 Paternal Grandmother Estevan Son 1 Arnulfo Cancino Son 2 Otis Cancino Social History Tobacco Use Types Packs/Day Years Used Date Smoking Tobacco: Never Smokeless Tobacco: Never Tobacco Cessation:Counseling Given: Not Answered AUDIT-C Answer Date Recorded Q1: How often [...] on file Legal Sex Female 3:58 AM WINDOWS SERVER SPECIALIST Gender Identity Not on file Sexual Orientation Not on file Obstetrics History Para Term AB IAB SAB Ectopic Multiple Livin g Live Births 4 4 4 Date Outcome GA Total Labor Labor/2nd/3rd Weight Sex Type Anes PTL Roz A1 A5 Name Clin Term Term Term Term Last Filed Vital Signs Vital Sign Reading Time Taken Comments Blood Pressure 191/75 10/02/2024 9:27 AM WINDOWS SERVER SPECIALIST Pulse 64 10/02/2024 9:27 AM WINDOWS SERVER SPECIALIST Temperature 36.6 C (97.8 F) 10/02/2024 9:27 AM WINDOWS SERVER SPECIALIST Respiratory Rate 18 08/22/2024 12:55 PM WINDOWS SERVER SPECIALIST Oxygen Saturation 96% 10/02/2024 9:27 AM WINDOWS SERVER SPECIALIST Inhaled Oxygen Concentration - - Weight 86.4 kg (190 lb 8 oz) 10/02/2024 9:27 AM WINDOWS SERVER SPECIALIST Height 167.6 cm (5' 6 ) 10/02/2024 9:27 AM WINDOWS SERVER SPECIALIST Body Mass Index 30.75 10/02/2024 9:27 AM WINDOWS SERVER SPECIALIST Plan of Treatment Health Maintenance Due Date Last Done Comments Hepatitis B Screening 1958 Zoster Vaccine (1 of 2) 1992 DTaP/Tdap/Td Vaccine (1 - Tdap) 02/12/2000 0 Osteoporosis Screening-Bone Density Scan 12/27/2023 12/26/2021 Covid-19 Vaccine (2023-09 5 season) 2024 07/19/2023, 05/04/2022, 06/11/2021, Additional history exists Albumin Creatinine Ratio, Urine 08/02/2024 08/02/2023, 06/10/2022, 12/18/2021, Additional history exists Foot Exam 02/07/2025 02/08/2024, 08/16, 09/10/2022, Additional history exists Hemoglobin A1C 04/01/2025 10/02/2024, 02/2025, 05/23/2024, Additional history exists Dilated Eye Exam 09/01/2025 09/01/2024, , 09/09/2023, Additional history exists Depression Screening 09/04/2025 09/04/2024, 08/30/2023, 12/24/2022, Additional history exists Fall Risk Assessment 09/04/2025 09/04/2024, 08/30/2023, 06/18/2022, Additional history exists Well Visit 65+ 09/04/2025 09/04/2024, 08/30/2023 Lipid Panel 10/02/2025 10/02/2024, 12/15, 05/10/2023, Additional history exists eGFR 10/02/2025 10/02/2024, 12/15, 05/10/2023, Additional history exists Pneumococcal vaccine 65+ Completed 08/30/2023, 08/2007 Influenza Vaccine Completed 04/17/2024, , 05/04/2022, Additional history exists Procedures Procedure Name Priority Date/Time Associated Diagnosis Comments EGFR Routine 10/02/2024 10:52 AM WINDOWS SERVER SPECIALIST Type 2 diabetes mellitus with hyperglycemia, with long-term current use of insulin (HCC) DIFFERENTIAL AUTO Routine 10/02/2024 10: 52 AM WINDOWS SERVER SPECIALIST Type 2 diabetes mellitus with hyperglycemia, with long-term current use of insulin (HCC) LIPID PANEL Routine 10/02/2024 10:52 AM WINDOWS SERVER SPECIALIST Primary hypertension CBC WITH AUTO DIFFERENTIAL Routine 10/02/2024 10:52 AM WINDOWS SERVER SPECIALIST Type 2 diabetes mellitus with hyperglycemia, with long-term current use of insulin (HCC) COMPREHENSIVE METABOLIC PANEL Routine 10/02/2024 10:52 AM WINDOWS SERVER SPECIALIST Type 2 diabetes mellitus with hyperglycemia, with long-term current use of insulin (HCC) ERYTHROCYTE SEDIMENTATION RATE Routine 10/02/2024 10:52 AM WINDOWS SERVER SPECIALIST Type 2 diabetes mellitus with hyperglycemia, with long-term current use of insulin ([facility]) HEMOGLOBIN A1C Routine 10/02/2024 10:52 AM WINDOWS SERVER SPECIALIST Type 2 diabetes mellitus with hyperglycemia, with long-term current use of insulin ([facility]) XR CHEST PA LATERAL 2 VIEWS Schedule Routine, Read Routine (OP Routine) 10/02/2024 10:35 AM WINDOWS SERVER SPECIALIST Subacute cough DIABETIC EYE EXAM Routine 09/01/2024 POCT GLUCOSE Routine 08/22/2024 12:58 PM WINDOWS SERVER SPECIALIST Type 2 diabetes mellitus with hyperglycemia, with long-term current use of insulin ([facility]) POCT HEMOGLOBIN A1C Routine 08/22/2024 1 2:58 PM WINDOWS SERVER SPECIALIST Type 2 diabetes mellitus with hyperglycemia, with long-term current use of insulin ([facility]) HM DIABETES EYE EXAM Routine 08/03/2024 7:42 AM WINDOWS SERVER SPECIALIST ALBUMIN CREATININE RATIO, URINE Routine 08/02/2023 11:24 AM WINDOWS SERVER SPECIALIST Type 2 diabetes mellitus with hyperglycemia, without long-term current use of insulin (CMS/HCC) ([facility]) DEXA AXIAL SKELETON BONE DENSITY 1 OR MORE SITES Schedule Routine, Read Routine (OP Routine) 12/26/2021 10:41 AM CDT Type 2 diabetes mellitus with diabetic polyneuropathy, with long-term current use of insulin (CMS/HCC) (HCC) Postmenopausal estrogen deficiency from Last 3 Months or Most Recently Relevant to Health Maintenance Results * eGFR (10/02/2024 10:52 AM WINDOWS SERVER SPECIALIST) Pathologist [facility] eGFR 74 >=60 mL/min/1. 73 m2 Comment: Interpretive Data Reference Interval Normal >/= 90 mL/min/1.73m2 Mildly decreased* 60 - 89 mL/min/1.73m2 Mildly to moderately decreased 45 - 59 mL/min/1.73m2 Moderately to severely decreased 30 - 44 mL/min/1.73m2 Severely decreased 15 - 29 mL/min/1.73m2 Kidney Failure < 15 mL/min/1.73m2 *Relative to young adult level Estimated glomerular filtration rate is determined by the 2020 CKD-EPI equation recommended by the National Kidney Foundation (A Unifying Approach to GFR Estimation: Recommendations of the NKF-ASK Task Force on Reassessing the Inclusion of Race in Diagnosing Kidney Disease, JASN 2020). The CKD-EPI equation should not be used for patients with unstable renal function and has not been validated in children and those over 70. Current interpretive data was last reviewed 2021. Blood 10/02/2024 10:5 2 AM WINDOWS SERVER SPECIALIST 10/02/2024 12:46 PM WINDOWS SERVER SPECIALIST us Joshua Muir MD LAB BLOOD ORDERABLES Final Re sult [facility] [address] [facility] Department [place] [address] * Differential, auto (10/02/2024 10:52 AM WINDOWS SERVER SPECIALIST) Pathologist [facility] Neutrophil abs 3.0 1.5 - 6.5 K/cumm Imm gran abs 0.0 0.0 - 0.1 K/cumm [facility] Lymphocyte abs 1.7 0.8 - 3.3 K/cumm [facility] Monocyte abs 0.4 0.2 - 0.8 K/cumm [facility] Eosinophil abs 0.3 0.0 - 0.5 K/cumm [facility] Basophil abs 0.0 0.0 - 0.1 K/cumm [facility] Neutrophil pct 55.1 % [facility] Comment: Interpretive Data Percent cell count reference ranges are not reported, since discordance with absolute values may lead to misinterpretation of CBC data. Current Interpretive Data was last revised on 2017. Imm gran pct 0.2 % [facility] Comment: Interpretive Data Percent cell count reference ranges are not reported, since discordance with absolute values may lead to misinterpretation of CBC data. Current Interpretive Data was last revised on 2017. Lymphocyte pct 30.7 % [facility] Comment: Interpretive Data Percent cell count reference ranges are not reported, since discordance with absolute values may lead to misinterpretation of CBC data. Current Interpretive Data was last revised on 2017. Monocyte pct 8.2 % [facility] Comment: Interpretive Data Percent cell count reference ranges are not reported, since discordance with absolute values may lead to misinterpretation of CBC data. Current Interpretive Data was last revised on 2017. Eosinophil pct 5.2 % [facility] Comment: Interpretive Data Percent cell count reference ranges are not reported, since discordance with absolute values may lead to misinterpretation of CBC data. Current Interpretive Data was last revised on 2017. Basophil pct 0.6 % [facility] Comment: Interpretive Data Percent cell count reference ranges are not reported, since discordance with absolute values may lead to misinterpretation of CBC data. Current Interpretive Data was last revised on 2017. Blood 10/02/2024 10:5 2 AM WINDOWS SERVER SPECIALIST 10/02/2024 12:46 PM WINDOWS SERVER SPECIALIST us Joshua Muir MD LAB BLOOD ORDERABLES Final Re sult [facility] [address] [facility] [place] [address] * (ABNORMAL) CBC with auto differential (10/02/2024 10:52 AM WINDOWS SERVER SPECIALIST) WBC 5.4 3.8 - 9.9 K/cumm Hgb 12.2 11.9 - 15.5 g/dL [facility] Hct 36.8 35.6 - 45.5 % [facility] Plt 222 150 - 400 K/cumm [facility] MPV 9.9 9.1 - 12.3 fL [facility] RBC 3.89(L) 3.90 - 5.20 M/cumm [facility] MCV 94.6 81.3 - 96.4 fL [facility] MCH 31.4 27.1 - 33.3 pg [facility] MCHC 33.2 32.3 - 35.7 g/dL [facility] RDW CV 13.4 11.1 - 14.9 % [facility] RDW SD 46.0 35.7 - 48.1 fL [facility] NRBC abs 0.00 0.00 - 0.01 K/cumm [facility] Blood 10/02/2024 10:5 2 AM WINDOWS SERVER SPECIALIST 10/02/2024 12:46 PM WINDOWS SERVER SPECIALIST Joshua Muir MD LAB BLOOD ORDERABLES Final Re sult Performing Organization Address [facility] Co de Phone Number [address] [place] [address] * Erythrocyte sedimentation rate (10/02/2024 10:52 AM WINDOWS SERVER SPECIALIST) Pathologist [facility] Erythrocyte sedimentation rate 25 1 - 30 mm/hr Blood 10/02/2024 10:5 2 AM WINDOWS SERVER SPECIALIST 10/02/2024 12:46 PM WINDOWS SERVER SPECIALIST Joshua Muir MD LAB BLOOD ORDERABLES Final sult Performing Organization Address [facility] de Phone Number [address] [address] * (ABNORMAL) Hemoglobin A1c (10/02/2024 10:52 AM WINDOWS SERVER SPECIALIST) Hgb A1C 6.8(H) 4.0 - 5.6 % Estimated Average Glucose 148 mg/dL [facility] Comment: The ADA recommends reporting an estimated Average Glucose (eAG) with all Hemoglobin A1c results using the equation derived from a study of 507 normal and diabetic adults. Minority populations were underrepresented and children were not included. (Diabetes Care 31:1191-2220, 2008). The eAG is not equivalent to a fasting glucose. Blood 10/02/2024 10:5 2 AM WINDOWS SERVER SPECIALIST 10/02/2024 12:46 PM WINDOWS SERVER SPECIALIST us Joshua Muir MD LAB BLOOD ORDERABLES Final Re sult [facility] [address] [facility] Department [place] [address] * Lipid panel (10/02/2024 10:52 AM WINDOWS SERVER SPECIALIST) Cholesterol 113 30 - 199 mg/dL Comment: Interpretive Data Ages < or = 19 years Acceptable: <170 mg/dL Borderline high: 170-199 mg/dL High: >or= 200 mg/dL Ages > or = 20 years Desirable: <200 mg/dL Borderline high: 200-239 mg/dL High: >or= 240 mg/dL Literature References: 1. Expert Panel on Integrated Guidelines for Cardiovascular Health and Risk Reduction in Children and Adolescents. Pediatrics 2011;128:S213 2. NCEP Expert Panel. Circulation 2004;110:227 Current Interpretive Data was last revised on 2018. Triglycerides 92 <=149 mg/dL [facility] Comment: Interpretive Data Ages < or = 9 years Acceptable: <75 mg/dL Borderline high: 75-99 mg/dL High: >or= 100 mg/dL Ages 10 to 20 years Acceptable: <90 mg/dL Borderline high: 90-129 mg/dL High: >or= 130 mg/dL Ages > or = 20 years Desirable: <150 mg/dL Borderline high: 150-199 mg/dL High: 200-499 mg/dL Very high: >or= 499 mg/dL Literature References: 1. Expert Panel on Integrated Guidelines for Cardiovascular Health and Risk Reduction in Children and Adolescents. Pediatrics 2011;128:S213 2. NCEP Expert Panel. Circulation 2004;110:227 Current Interpretive Data was last revised on 2018. HDL 45 >=40 mg/dL [facility] Comment: Interpretive Data Ages < or = 19 years Acceptable: >45 mg/dL Borderline low: 40-45 mg/dL Low: <40 mg/dL Ages > or = 20 years Desirable: >or= 60 mg/dL Low: <40 mg/dL Literature References: 1. Expert Panel on Integrated Guidelines for Cardiovascular Health and Risk Reduction in Children and Adolescents. Pediatrics 2011;128:S213 2. NCEP Expert Panel. Circulation 2004;110:227 Current Interpretive Data was last revised on 2018. LDL, calculated 50 <=129 mg/dL [facility] Comment: Interpretive Data Ages < or = 19 years Acceptable: <110 mg/dL Borderline high: 110-129 mg/dL High: >or= 130 mg/dL Ages > or = 20 years Optimal: <100 mg/dL Near optimal: 100-129 mg/dL Borderline high: 130-159 mg/dL High: >160 mg/dL Calculated using the Lyndon LDL-C estimating equation. This equation was implemented on 2024. Prior to this date LDL-C was estimated using the Friedewald equation. Literature References: 1. Expert Panel on Integrated Guidelines for Cardiovascular Health and Risk Reduction in Children and Adolescents. Pediatrics 2011;128:S213 2. NCEP Expert Panel. Circulation 2004;110:227 3. Lyndon Gaviria et al. DYAN Cardiol. 2020 December 14;5(5):540-548. doi: 10.1001/jamacardio.2020.0013 Current Interpretive Data was last revised on 2024. Non-HDL Cholesterol 68 mg/dL [facility] Comment: Interpretive Data Ages < or = 19 years Acceptable: <120 mg/dL Borderline high: 120-144 mg/dL High: >145 mg/dL Ages > or = 20 years When triglycerides are >200 mg/dL, Non-HDL cholesterol is a secondary target of therapy with treatment goals that are 30 mg/dL greater than the LDL cholesterol target. Literature References: 1. Expert Panel on Integrated Guidelines for Cardiovascular Health and Risk Reduction in Children and Adolescents. Pediatrics 2011;128:S213 2. NCEP Expert Panel. Circulation 2004;110:227 Current Interpretive Data was last revised on 2018. Chol/HDL ratio 3 [facility] Blood 10/02/2024 10:5 2 AM WINDOWS SERVER SPECIALIST 10/02/2024 12:46 PM WINDOWS SERVER SPECIALIST us Joshua Muir MD LAB BLOOD ORDERABLES Final Re sult [facility] [address] [facility] Department [place] [address] * Comprehensive metabolic panel (10/02/2024 10:52 AM WINDOWS SERVER SPECIALIST) Sodium 139 135 - 145 mmol/L Potassium, pl 3.8 3.3 - 4.9 mmol/L [facility] Chloride 103 97 - 110 mmol/L [facility] CO2 26 22 - 32 mmol/L [facility] Anion gap 10 2 - 15 mmol/L [facility] BUN 13 6 - 25 mg/dL [facility] Creatinine 0.80 0.60 - 1.10 mg/dL [facility] Glucose 101 70 - 199 mg/dL [facility] Comment: Interpretive Data Fasting glucose >/= 126 mg/dl is diagnostic for diabetes. Fasting is defined as no caloric intake for at least 8 hours. Fasting glucose between 100 mg/dl to 125 mg/dl is diagnostic of prediabetes. In a patient with classic symptoms of hyperglycemia or hyperglycemic crisis, a random glucose >/= 200 mg/dl is diagnostic for diabetes. In the absence of unequivocal hyperglycemia, results should be confirmed by repeat testing. The classification and Diagnosis of Diabetes Diabetes Care 2021; 46: S19-S40. Current interpretive data was last revised 2022. Calcium 9.4 8.5 - 10.3 mg/dL [facility] Bilirubin, total 0.6 0.1 - 1.2 mg/dL [facility] Protein, pl 7.0 6.5 - 8.5 g/dL [facility] Albumin 3.5 3.5 - 5.0 g/dL [facility] Alk phos 98 40 - 130 Units/L [facility] ALT 21 7 - 45 Units/L [facility] AST 39 10 - 45 Units/L [facility] Blood 10/02/2024 10:5 2 AM WINDOWS SERVER SPECIALIST 10/02/2024 12:46 PM WINDOWS SERVER SPECIALIST us Joshua Muir MD LAB BLOOD ORDERABLES Final Re sult [facility] [address] [facility] Department [place] [address] * XR Chest Pa Lateral 2 Views (10/02/2024 10:35 AM WINDOWS SERVER SPECIALIST) Anatomical Region Laterality Modality Body, Chest N/A Computed Radiogr aphy 10/04/2024 4:38 PM WINDOWS SERVER SPECIALIST Narrative 10/04/2024 4:40 PM WINDOWS SERVER SPECIALIST EXAM DESCRIPTION: XR CHEST PA LATERAL 2 VIEWS REASON FOR STUDY: Pt sts: productive cough X 1 month, right sided chest soreness, sob, history of pneumonia, high htn, htn controlled TECHNIQUE: Frontal and lateral radiographic view(s) of the chest. COMPARISON: None FINDINGS: LUNGS: There is streaky atelectasis versus scarring in the right mid lung. There are subtle somewhat patchy opacities in the bilateral lung bases. No sizable pleural effusion or pneumothorax. HEART/MEDIASTINUM: Cardiac silhouette normal in size. Mediastinal and hilar contours appear normal. Aortic atherosclerosis is present. LINES/TUBES: None. BONES: No acute osseous abnormality. IMPRESSION: Subtle somewhat patchy opacities in the bilateral lung bases, which may represent atelectasis or pneumonia. THIS IS AN ELECTRONICALLY VERIFIED FINAL REPORT 10/04/2024 4:40 PM - Electronically signed by Patrick Campa M.D. AM T: Report ID: [id number] Reading Location: [place] [address] Procedure Note Patrick Campa MD - 10/04/2024 EXAM DESCRIPTION: XR CHEST PA LATERAL 2 VIEWS REASON FOR STUDY: Pt sts: productive cough X 1 month, right sided chest soreness, sob,history of pneumonia, high htn, htn controlled TECHNIQUE: Frontal and lateral radiographic view(s) of the chest. COMPARISON: None FINDINGS: LUNGS: There is streaky atelectasis versus scarring in the rightmid lung. There are subtle somewhat patchy opacities in the bilateral lung bases. No sizable pleural effusion or pneumothorax. HEART/MEDIASTINUM: Cardiac silhouette normal in size. Mediastinal andhilar contours appear normal. Aortic atherosclerosis is present. LINES/TUBES: None. BONES: No acute osseous abnormality. IMPRESSION: Subtle somewhat patchy opacities in the bilateral lung bases, which may represent atelectasis or pneumonia. THIS IS AN ELECTRONICALLY VERIFIED FINAL REPORT 10/04/2024 4:40 PM - Electronically signed by Patrick Campa M.D. AM T: Report ID: [id number] Reading Location: [id number] Joshua Muir MD IMG XR PROCEDURES Final Resul t * (ABNORMAL) Diabetic Eye Exam (09/01/2024) Teresa French, RN - 09/01/2024 ABNORMAL Historical Provider HEALTH MAINTENANCE Final Result * (ABNORMAL) POCT hemoglobin A1c (08/22/2024 12:58 PM WINDOWS SERVER SPECIALIST) Hemoglobin A1C, POC 7.0 4.0 - 5.6 % Blood 08/22/2024 12:5 8 PM WINDOWS SERVER SPECIALIST Rosalinda Valles NP POINT OF CARE TEST ORDERA BLES Final Result * (ABNORMAL) POCT glucose (08/22/2024 12:58 PM WINDOWS SERVER SPECIALIST) Glucose Blood, POC 144 mg/dL Blood 08/22/2024 12:5 8 PM WINDOWS SERVER SPECIALIST Rosalinda Valles NP POINT OF CARE TEST ORDERA BLES Final Result * (ABNORMAL) DIABETES EYE EXAM (08/03/2024 7:42 AM WINDOWS SERVER SPECIALIST) Historical Provider HEALTH MAINTENANCE Final Result * Albumin Creatinine Ratio, Urine (08/02/2023 11:24 AM WINDOWS SERVER SPECIALIST) Albumin Ur <12.0 mg/L [facility] Comment: Interpretive Data No reference range established. Current interpretive data was last revised 2018. Creatinine Ur 106.6 mg/dL [facility] Comment: Interpretive Data No reference range established. Current interpretive data was last revised 2018. Albumin Creatinine Ratio, Ur <11 1 - 29 mg/g [facility] Urine 08/02/2023 11:2 4 AM WINDOWS SERVER SPECIALIST 08/02/2023 1:47 PM WINDOWS SERVER SPECIALIST us Joshua Muir MD LAB URINE ORDERABLES Final Re sult [facility] [address] Department [place] [address] * Dexa Axial Skeleton Bone Density 1 or 2 Site (12/26/2021 10:41 AM CDT) Anatomical Region Laterality Modality Body N/A Radiographic Lakesha ging Narrative 12/30/2021 12:30 PM CDT Patient Name: Lisa Cancino Date of : 1940 Date of scan: 12/26/2021 Bone mineral density was performed on a [employer] Discovery Densitometer. Based on machine cross-calibration and precision studies the least significant changes of this densitometer is 0.024 g/cm2 at the spine, 0.020 g/cm2 at the total proximal femur, and 0.014g/cm2 at the forearm. HISTORY: This is a 81 y.o. postmenopausal female with a history of ulcerative colitis and vitamin D deficiency. She reports that she has never smoked. She does not have any smokeless tobacco history on file. Currently on treatment with calcium, vitamin D and diuretics, previously treated with glucocorticoids and hormone replacement therapy and current complaint of back pain and leg pain. INDICATIONS: Menopause status, history of glucocorticoids use and vitamin D deficiency. FINDINGS: BONE MINERAL DENSITY OF THE LUMBAR SPINE Bone Mineral Density (BMD) of the lumbar spine was measured from L1-L4 and the average density was calculated to be 1.074 gm/cm2. This corresponds to a T-score (standard deviations from the mean of young adults) of 0.2. There is no previous study available for comparison. BONE MINERAL DENSITY OF THE PROXIMAL FEMUR Bone Mineral Density (BMD) of the left hip total was found to be 0.854 gm/cm2. This corresponds to a T-score standard deviations from the mean of young adults of -0.7. Femoral neck is 0.658 gm/cm2 with a T-score (standard deviations from the mean of young adults) of -1.7. There is no previous study available for comparison. SUMMARY: Bone mineral density shows evidence of low bone mass at the proximal femur and moderately increased fracture risk (Osteopenia). ADDITIONAL COMMENTS: Postmenopausal Women and Men Over 50: Diagnostic criteria: Osteoporosis: BMD at or below -2.5 T-score; Osteopenia (low bone mass): BMD between -1.0 and -2.5 T-score. If the patient has a history of a fragility fracture, a fracture that occurred with trauma equivalent to a fall from a standing position or less, then the diagnosis is osteoporosis regardless of bone density. The history and data sections of the bone mineral density scan were prepared by Christine Melton who is accredited by the International Society of Clinical Densitometry. The overall patient assessment and scan interpretation were performed by Kecia Marcus MD who is certified by the International Society of Clinical Densitometry. [id number] Shruti Spann NP IMG DXA PROCEDURES Final Re sult from Last 3 Months or Most Recently Relevant to Health Maintenance Insurance [facility] MEDICARE [facility] MEDICARE SUPPLEMENT Care Teams Flexible Babysitter Relationship Specialty Start Date End Date Joshua Muir MD PCP - General Family Medicine 08/18/22
--- OUTSIDE RECORDS SUMMARY | 2024-10-16 01:43 | XMS_ITS | Referral Summary ---
Author Organization [facility] Address [address] [place] [address] Care Team Providers Care Homicide Squad Sergeant Name Role Phone Joshua Muir MD Primary Care Provider [phone] Encounters Date Type Department Care Team Description 10/04/2024 Orders Only [facility] Medical Group Family Medicine at [address] [phone] Joshua Muir MD 10/02/2024 Results Follow-Up [facility] Family Medicine at [address] [phone] Joshua Muir MD 10/02/2024 10:45 AM FIRST MATE Lab [facility] Bld[facility] [address] OP Lab [address] [place] [phone] Type 2 diabetes mellitus with hyperglycemia, with long-term current use of insulin (HCC); Primary hypertension 10/02/2024 10:26 AM FIRST MATE - 10/02/2024 11:59 PM FIRST MATE Hospital Encounter [facility] Di[facility] Imaging [address] [place] [address] Subacute cough Discharge Disposition: Discharge to home or self care 10/02/2024 9:30 AM FIRST MATE Office Visit [facility] Family Medicine at [address] [phone] Joshua Muir MD Subacute cough (Primary Dx); Type 2 diabetes mellitus with hyperglycemia, with long-term current use of insulin (HCC); Primary hypertension 09/18/2024 6:45 PM FIRST MATE Telemedicine [address] [phone] Becky Ramos NP Acute cough (Primary Dx); Post-nasal drainage 09/18/2024 Patient Self-Triage [facility] HealthCare/ Physicians [address] [place] [phone] Mychart, Generic Provider 09/15/2024 Patient Self-Triage [facility] HealthCare/ Physicians [address] [place] [phone] Mychart, Generic Provider 09/04/2024 2:45 PM FIRST MATE Office Visit [facility] Family Medicine at [address] [place] [phone] Joshua Muir MD Medicare annual wellness visit, subsequent (Primary Dx); Osteopenia of multiple sites; Primary hypertension 08/30/2024 Orders Only [facility] Diabetes and Endocrinology [address] [place] [phone] ProviderAltagracia MD 08/24/2024 Telephone [facility] Diabetes [facility] Endocrinology [address] [place] [phone] Rosalinda Valles NP Prior Auth (Ozempic) 08/22/2024 Telephone [facility] Diabetes [facility] Endocr[facility] [address] [place] [phone] Rosalinda Valles NP [facility] 08/22/2024 1:00 PM FIRST MATE Office Visit [facility] Diabetes and Endocrinology [address] [place] [phone] Rosalinda Valles NP Type 2 diabetes mellitus with hyperglycemia, with long-term current use of insulin (HCC) (Primary Dx); Hypertension associated with type 2 diabetes mellitus (HCC); Hyperlipidemia associated with type 2 diabetes mellitus (HCC); Diabetic peripheral neuropathy (CMS/HCC) (HCC); Insulin pump status from Last 3 Months Allergies Active Allergy Reactions Criticality Noted Date Comments Erythromycin Hives Medium Medications insulin syringe-needle U-100 1/2 mL 31 gauge x 15/64 syringe USE DIRECTED WHEN OFF PUMP 05/29/20 15 Active hsfwdchc-xdf-u dyi-TX-[id number] 8 mg iron-400 mcg-300 mcg tablet daily. 09/28/19 12 Active omega 7-fyv-pwt-fish oil 300-1,000 mg capsule daily. 09/28/19 12 [...] Ultra-Fine Mini Pen Needle) 31 gauge x 316 needleIndicati ons:Type 2 diabetes mellitus with hyperglycemia, [...] hyperglycemia, with long-term current use of insulin ([facility]) Inject for severe hypoglycemia 1 kit 2 08/22/19 25 Active insulin aspart (NovoLOG) 100 unit/mL vial for injectionIndic ations:Type 2 diabetes mellitus with hyperglycemia, with long-term current use of insulin ([facility]) Use 140 units daily via [...] Will obtain UA/Cx. Verified that she uses [employer]. Aware to check results/results letter in [employer]. Will contact by phone if needed. Aware [...] Hypertension associated with type 2 diabetes zora coronaus 12/02/2022 Assessment & Plan (08/22/2024 12:59 PM FIRST MATE): Chronic problem. Controlled on current regimen. Currently [...] time. Assessment & Plan (08/31/2023 1:26 PM FIRST MATE): Chronic problem. Controlled on current regimen. Currently [...] Hyperlipidemia associated with type 2 diabetes usama [email or web address] 12/02/2022 Assessment & Plan (08/22/2024 12:59 PM FIRST MATE): Chronic problem. Controlled on current Atorvastatin 10mg. Last lipid panel: 01/11/24 LDL=64, UA=866 No changes at this time. Assessment & Plan (05/23/2024 1:07 PM CDT): Chronic problem. Controlled on current Atorvastatin 10mg. Last lipid panel: 01/11/24 LDL=64, PK=052 No changes at this time. Assessment & Plan (08/31/2023 1:26 PM FIRST MATE): Chronic problem. Controlled on current Atorvastatin 10mg. Last lipid panel: 05/10/23 LDL=71, XC=584. No changes at this time. Assessment & Plan (06/07/2023 10:19 AM CDT): Chronic problem. Controlled on current Atorvastatin 10mg. Last lipid panel: 05/10/23 LDL=71, IX=982. No changes at this time. Assessment & Plan (12/03/2022 12:59 PM CDT): Chronic problem. Controlled on current Atorvastatin 10mg. Last lipid panel: 07/28/22 LDL=69, TG=99. No changes at this time. Insulin pump status 12/02/2022 Assessment & Plan (08/22/2024 1:48 PM FIRST MATE): Pump setting changes -decreased 12a from 0.9 [...] failure Assessment & Plan (08/31/2023 1:27 PM FIRST MATE): No pump setting changes at this time. 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 Chronic cervical pain 06/12/2021 CHRISTINE (generalized anxiety disorder) 06/12/2021 Medicare annual wellness visit, subsequent 02/07 Insulin long-term use ([facility]) 02/07/2021 Retinopathy 08/05/2020 Diabetic peripheral neuropathy ([facility]) 013 Assessment & Plan (08/22/2024 1:50 PM FIRST MATE): Chronic problem. Currently taking Gabapentin 100mg daily. [...] sleep Assessment & Plan (09/10/2022 4:26 PM FIRST MATE): Foot care discussed Start gabapentin Vitamin D deficiency 11/22/2012 Assessment & Plan (02/05/2022 9:30 AM CDT): Continue daily over the counter supplements. Assessment & Plan (11/28/2021 8:56 AM CDT): -Continue current Vitamin D supplement Assessment & Plan (09/01/2021 3:24 PM FIRST MATE): -Continue current Vitamin D supplement Assessment & Plan (06/20/2018 2:01 PM FIRST MATE): level > 30 07/31, on vitamin D [...] effects Assessment & Plan (09/03/2021 12:27 PM FIRST MATE): -Last LDL was 71 in June 2021 -Will continue statin as it is being tolerated without side effects Assessment & Plan (06/20/2018 2:00 PM FIRST MATE): on statin. LDL 54 06/01--> recheck Diabetic cataract ([facility]) 09/28/2011 Hypertension 09/28/2011 Assessment & Plan (04/27/2022 2:13 PM CDT): -BP today is 134/72 -Will continue same antihypertensive medications at this time and continue to monitor Assessment & Plan (12/01/2021 2:46 PM CDT): -BP today is 146/70 -Will continue same antihypertensive medications at this time and continue to monitor Assessment & Plan (09/03/2021 12:27 PM FIRST MATE): -BP today is 153/83 -Will continue same antihypertensive medications at this time and continue to monitor Assessment & Plan (06/20/2018 2:00 PM FIRST MATE): On ARB Type 2 diabetes mellitus with hyperglycemia ([facility]) 09/28/2011 Assessment & Plan (08/22/2024 1:56 PM FIRST MATE): Chronic problem. A1c at goal/stable at 6.9%05/23/24 [...] before Assessment & Plan (08/31/2023 2:29 PM FIRST MATE): Chronic problem. A1c at goal 6.9% without [...] Please call Dr Cristobal at the [facility] to set up your follow-up appointment. Current medications: Humalog via [employer] Basal rates: 12a 1.15, 4a, 1.55, 8a 1.5, 10a 1.35, 2p 1.3, 4p 1.65 CF 12a 15, 4p 20, 8p 15 CR 12a 3.5, 2p 3 Target 100 AIT 5 Office will contact [employer] to get her added to our account. Assessment & Plan (09/10/2022 4:26 PM FIRST MATE): Hba1c was Lab Results Component Value Date [...] 02/08/2024 Assessment & Plan (08/31/2023 1:26 PM FIRST MATE): Chronic problem. Currently taking gabapentin 100mg bid. [...] date Assessment & Plan (09/03/2021 12:26 PM FIRST MATE): -Currently taking Victoza and Novolog per [employer] [...] today Assessment & Plan (09/19/2018 4:43 PM FIRST MATE): Diabetes is stable, no changes to pump, discussed how to cover post meal highs with dynamic arrow changes based on sensitivity. Sensitivity is 15 No changes to pump settings. Assessment & Plan (06/20/2018 1:59 PM FIRST MATE): well controlled type 2 DM with neuropathy: [...] syndrome 09/28/2011 024 Diverticulitis of colon 09/28/201111/15 Immunizations Immunization Administration Dates Next Due Hep [...] valent, Original/omicron Ba.1 07/19/2023 Td, adsorbed 02/11/2000 Social History Tobacco Use Types Packs/Day Years [...] on file Legal Sex Female 3:58 AM FIRST MATE Gender Identity Not on file Sexual Orientation Not on file Last Filed Vital Signs Vital Sign Reading Time Taken Comments Blood Pressure 191/75 10/02/2024 9:27 AM FIRST MATE Pulse 64 10/02/2024 9:27 AM FIRST MATE Temperature 36.6 C (97.8 F) 10/02/2024 9:27 AM FIRST MATE Respiratory Rate 18 08/22/2024 12:55 PM FIRST MATE Oxygen Saturation 96% 10/02/2024 9:27 AM FIRST MATE Inhaled Oxygen Concentration - - Weight 86.4 kg (190 lb 8 oz) 10/02/2024 9:27 AM FIRST MATE Height 167.6 cm (5' 6 ) 10/02/2024 9:27 AM FIRST MATE Body Mass Index 30.75 10/02/2024 9:27 AM FIRST MATE Plan of Treatment Not on file Procedures Procedure Name Priority Date/Time Associated Diagnosis Comments EGFR Routine 10/02/2024 10:52 AM FIRST MATE Type 2 diabetes mellitus with hyperglycemia, with long-term current use of insulin (HCC) DIFFERENTIAL AUTO Routine 10/02/2024 10: 52 AM FIRST MATE Type 2 diabetes mellitus with hyperglycemia, with long-term current use of insulin (HCC) LIPID PANEL Routine 10/02/2024 10:52 AM FIRST MATE Primary hypertension CBC WITH AUTO DIFFERENTIAL Routine 10/02/2024 10:52 AM FIRST MATE Type 2 diabetes mellitus with hyperglycemia, with long-term current use of insulin (HCC) COMPREHENSIVE METABOLIC PANEL Routine 10/02/2024 10:52 AM FIRST MATE Type 2 diabetes mellitus with hyperglycemia, with long-term current use of insulin (HCC) ERYTHROCYTE SEDIMENTATION RATE Routine 10/02/2024 10:52 AM FIRST MATE Type 2 diabetes mellitus with hyperglycemia, with long-term current use of insulin (HCC) HEMOGLOBIN A1C Routine 10/02/2024 10:52 AM FIRST MATE Type 2 diabetes mellitus with hyperglycemia, with long-term current use of insulin (HCC) XR CHEST PA LATERAL 2 VIEWS Schedule Routine, Read Routine (OP Routine) 10/02/2024 10:35 AM FIRST MATE Subacute cough DIABETIC EYE EXAM Routine 09/01/2024 POCT GLUCOSE Routine 08/22/2024 12:58 PM FIRST MATE Type 2 diabetes mellitus with hyperglycemia, with long-term current use of insulin (HCC) POCT HEMOGLOBIN A1C Routine 08/22/2024 1 2:58 PM FIRST MATE Type 2 diabetes mellitus with hyperglycemia, with long-term current use of insulin (HCC) HM DIABETES EYE EXAM Routine 08/03/2024 7:42 AM FIRST MATE ALBUMIN CREATININE RATIO, URINE Routine 08/02/2023 11:24 AM FIRST MATE Type 2 diabetes mellitus with hyperglycemia, without long-term current use of insulin (CMS/HCC) ([facility]) DEXA AXIAL SKELETON BONE DENSITY 1 OR MORE SITES Schedule Routine, Read Routine (OP Routine) 12/26/2021 10:41 AM CDT Type 2 diabetes mellitus with diabetic polyneuropathy, with long-term current use of insulin (CMS/HCC) ([facility]) Postmenopausal estrogen deficiency from Last 3 Months or Most Recently Relevant to Health Maintenance Results * eGFR (10/02/2024 10:52 AM FIRST MATE) eGFR 74 >=60 mL/min/1. 73 m2 Comment: [...] reviewed 2021. Blood 10/02/2024 10:5 2 AM FIRST MATE 10/02/2024 12:46 PM FIRST MATE us Joshua Muir MD LAB BLOOD ORDERABLES Final Re sult [facility] [address] [facility] Department [place] [address] * Differential, auto (10/02/2024 10:52 AM FIRST MATE) Neutrophil abs 3.0 1.5 - 6.5 K/cumm Imm gran abs 0.0 0.0 - 0.1 K/cumm [facility] Lymphocyte abs 1.7 0.8 - 3.3 K/cumm [facility] Monocyte abs 0.4 0.2 - 0.8 K/cumm [facility] Eosinophil abs 0.3 0.0 - 0.5 K/cumm [facility] Basophil abs 0.0 0.0 - 0.1 K/cumm [facility] Neutrophil pct 55.1 % [facility] Comment: Interpretive Data Percent cell count reference ranges are not reported, since discordance with absolute values may lead to misinterpretation of CBC data. Current Interpretive Data was last revised on 2017. Imm gran pct 0.2 % [facility] Comment: Interpretive Data Percent cell count reference ranges are not reported, since discordance with absolute values may lead to misinterpretation of CBC data. Current Interpretive Data was last revised on 2017. Lymphocyte pct 30.7 % [facility] Comment: Interpretive Data Percent cell count reference ranges are not reported, since discordance with absolute values may lead to misinterpretation of CBC data. Current Interpretive Data was last revised on 2017. Monocyte pct 8.2 % [facility] Comment: Interpretive Data Percent cell count reference ranges are not reported, since discordance with absolute values may lead to misinterpretation of CBC data. Current Interpretive Data was last revised on 2017. Eosinophil pct 5.2 % [facility] Comment: Interpretive Data Percent cell count reference ranges are not reported, since discordance with absolute values may lead to misinterpretation of CBC data. Current Interpretive Data was last revised on 2017. Basophil pct 0.6 % [facility] Comment: Interpretive Data Percent cell count reference ranges are not reported, since discordance with absolute values may lead to misinterpretation of CBC data. Current Interpretive Data was last revised on 2017. Blood 10/02/2024 10:5 2 AM FIRST MATE 10/02/2024 12:46 PM FIRST MATE us Joshua Muir MD LAB BLOOD ORDERABLES Final Re sult [facility] [address] [facility] Department [place] [address] * (ABNORMAL) CBC with auto differential (10/02/2024 10:52 AM FIRST MATE) [facility] WBC 5.4 3.8 - 9.9 K/cumm Hgb 12.2 11.9 - 15.5 g/dL [facility] Hct 36.8 35.6 - 45.5 % [facility] Plt 222 150 - 400 K/cumm [facility] MPV 9.9 9.1 - 12.3 fL [facility] RBC 3.89(L) 3.90 - 5.20 M/cumm [facility] MCV 94.6 81.3 - 96.4 fL [facility] MCH 31.4 27.1 - 33.3 pg [facility] MCHC 33.2 32.3 - 35.7 g/dL [facility] RDW CV 13.4 11.1 - 14.9 % [facility] RDW SD 46.0 35.7 - 48.1 fL [facility] NRBC abs 0.00 0.00 - 0.01 K/cumm [facility] Blood 10/02/2024 10:5 2 AM FIRST MATE 10/02/2024 12:46 PM FIRST MATE Joshua Muir MD LAB BLOOD ORDERABLES Final Re sult Performing Organization Address [facility] de Phone Number [address] [place] [address] * Erythrocyte sedimentation rate (10/02/2024 10:52 AM FIRST MATE) [facility] Erythrocyte sedimentation rate 25 1 - 30 mm/hr Blood 10/02/2024 10:5 2 AM FIRST MATE 10/02/2024 12:46 PM FIRST MATE Joshua Muir MD LAB BLOOD ORDERABLES Final Re sult Performing Organization Address [facility] Co de Phone Number [address] [place] [address] * (ABNORMAL) Hemoglobin A1c (10/02/2024 10:52 AM FIRST MATE) Hgb A1C 6.8(H) 4.0 - 5.6 % Estimated Average Glucose 148 mg/dL [facility] Comment: The ADA recommends reporting an estimated Average Glucose (eAG) with all Hemoglobin A1c results using the equation derived from a study of 507 normal and diabetic adults. Minority populations were underrepresented and children were not included. (Diabetes Care 31:4022-4501, 2008). The eAG is not equivalent to a fasting glucose. Blood 10/02/2024 10:5 2 AM FIRST MATE 10/02/2024 12:46 PM FIRST MATE us Joshua Muir MD LAB BLOOD ORDERABLES Final Re sult [facility] [address] [facility] Department [place] [address] * Lipid panel (10/02/2024 10:52 AM FIRST MATE) Cholesterol 113 30 - 199 mg/dL Comment: [...] on 2018. Triglycerides 92 <=149 mg/dL [facility] Comment: Interpretive Data Ages [...] NCEP Expert Panel. Circulation 2004;110:227 3. Lyndon Logan al. DYAN Cardiol. 2019December 14;5(5):540-548. doi: 10.1001/jamacardio.2020.0013 Current Interpretive Data was [...] last revised on 2018. Chol/HDL ratio 3 [facility] Blood 10/02/2024 10:5 2 AM FIRST MATE 10/02/2024 12:46 PM FIRST MATE Joshua Muir MD LAB BLOOD ORDERABLES Final Re sult [facility] [address] [facility] [place] [address] * Comprehensive metabolic panel (10/02/2024 10:52 AM FIRST MATE) Pathologist [facility] Sodium 139 135 - 145 mmol/L Potassium, pl 3.8 3.3 - 4.9 mmol/L [facility] Chloride 103 97 - 110 mmol/L [facility] CO2 26 22 - 32 mmol/L [facility] Anion gap 10 2 - 15 mmol/L [facility] BUN 13 6 - 25 mg/dL [facility] Creatinine 0.80 0.60 - 1.10 mg/dL [facility] Glucose 101 70 - 199 mg/dL [facility] Comment: Interpretive Data Fasting glucose >/= 126 [...] classification and Diagnosis of Diabetes Diabetes Care 202; 46: S19-S40. Current interpretive data was last revised 2022. Calcium 9.4 8.5 - 10.3 mg/dL [facility] Bilirubin, total 0.6 0.1 - 1.2 mg/dL [facility] Protein, pl 7.0 6.5 - 8.5 g/dL [facility] Albumin 3.5 3.5 - 5.0 g/dL [facility] Alk phos 98 40 - 130 Units/L [facility] ALT 21 7 - 45 Units/L [facility] AST 39 10 - 45 Units/L [facility] Blood 10/02/2024 10:5 2 AM FIRST MATE 10/02/2024 12:46 PM FIRST MATE us Joshua Muir MD LAB BLOOD ORDERABLES Final Re sult [facility] [address] [facility] Department [place] [address] * XR Chest Pa Lateral 2 Views (10/02/2024 10:35 AM FIRST MATE) Anatomical Region Laterality Modality Body, Chest N/A Computed Radiogr aphy 10/04/2024 4:38 PM FIRST MATE Narrative 10/04/2024 4:40 PM FIRST MATE EXAM DESCRIPTION: XR CHEST PA LATERAL 2 [...] Patrick Campa M.D. AM T: Report ID: [id number] Reading Location: [id number] Procedure Note Patrick Campa MD - 10/04/2024 [...] Patrick Campa M.D. AM T: Report ID: [id number] Reading Location: [place] [address] Result [facility] Joshua Muir MD IMG XR PROCEDURES Final Resul t * (ABNORMAL) Diabetic Eye Exam (09/01/2024) Impressions Teresa Johnston RN - 09/01/2024 ABNORMAL Result [facility] Historical Provider [facility] Final Result * (ABNORMAL) POCT hemoglobin A1c (08/22/2024 12:58 PM FIRST MATE) Hemoglobin A1C, POC 7.0 4.0 - 5.6 % Blood 08/22/2024 12:5 8 PM FIRST MATE Result [facility] Rosalinda Valles NP POINT OF CARE TEST ORDERA BLES Final Result * (ABNORMAL) POCT glucose (08/22/2024 12:58 PM FIRST MATE) Glucose Blood, POC 144 mg/dL Blood 08/22/2024 12:5 8 PM FIRST MATE Rosalinda Valles NP POINT OF CARE TEST ORDERA BLES Final Result * (ABNORMAL) DIABETES EYE EXAM (08/03/2024 7:42 AM FIRST MATE) Result [facility] Historical Provider [facility] Final Result * Albumin Creatinine Ratio, Urine (08/02/2023 11:24 AM FIRST MATE) Albumin Ur <12.0 mg/L [facility] Comment: Interpretive Data No reference range established. Current interpretive data was last revised 2018. Creatinine Ur 106.6 mg/dL [facility] Comment: Interpretive Data No reference range established. Current interpretive data was last revised 2018. Albumin Creatinine Ratio, Ur <11 1 - 29 mg/g [facility] Urine 08/02/2023 11:2 4 AM FIRST MATE 08/02/2023 1:47 PM FIRST MATE us Joshua Muir MD LAB URINE ORDERABLES Final Re sult [facility] [address] Department [place] [address] * Dexa Axial Skeleton Bone Density 1 or 2 Site (12/26/2021 10:41 AM CDT) Anatomical Region Laterality Modality Body N/A Radiographic Lakesha ging Narrative 12/30/2021 12:30 PM CDT Patient Name: Lisa Cancino Date of : 1940 Date of scan: 12/26/2021 Bone mineral density was performed on a [employer] Densitometer. Based on machine cross-calibration and [...] by the International Society of Clinical Densitometry. [id number] Shruti Spann THERAPIST PHYS IMG DXA PROCEDURES Final Re sult from Last 3 Months or Most Recently Relevant to Health Maintenance Insurance MEDICARE [facility] MEDICARE [facility] MEDICARE SUPPLEMENT Care Teams Homicide Squad Sergeant Relationship Specialty Start Date End Date Joshua Muir MD PCP - General Family Medicine 08/18/22
--- OUTSIDE RECORDS SUMMARY | 2024-10-16 01:43 | XMS_ITS | Encounter Summary ---
Author Organization [facility] Healthcare Address [address] [place] [address] Care Team Providers Care Towboat Pilot Name Role Phone Cachorro Garcia MD Primary Care Provider [phone] Reason for Visit * Diagnostic Imaging (Routine) - Closed Specialty Diagnoses / Procedures Referred By Leti rice Referred To Contact Procedures Breast Imaging Screening Outside Reference Referral, Self Referral ID Status Reason Start Date Expiration Date Visits Re quested Visits Authorized [id number] Closed 08/20/2022 09/19/2023 1 1 Encounter Details Date Type Department Care Team (Late st Contact Info) Description 04/23/2020 Hospital Encounter [facility] [address] [place] [phone] Social History Tobacco Use Types Packs/Day Years [...] on file Legal Sex Female 3:58 AM CUSHION MAKER HAND Gender Identity Not on file Sexual Orientation [...] BREAST IMAGING MG SCREENING OUTSIDE REFERENCE Routine 04/23/2020 12:00 AM CDT documented in this encounter Results * Breast Imaging Screening Outside Reference (04/23/2020 12:00 AM CDT) Impressions [facility] - 08/20/2022 11:27 AM CUSHION MAKER HAND These images are for Reference purposes only and have not been reviewed by [facility] Radiology. There will be no report generated by a [facility] Radiologist. Narrative [facility]_MAMMO[facility] - 08/20/2022 11:27 AM CUSHION MAKER HAND EXAMINATION: Images For Reference Purposes Only us Self Referral IMG MAMMO PROCEDURES Final Resul t [facility] documented in this encounter Visit Diagnoses Not on filedocumented in this encounter Care Teams Towboat Pilot Relationship Specialty Start Date End Date Cachorro Garcia MD [address] [place] [address] PCP - General 12/07/16 06/11/21 documented as of this encounter
--- NOTE | 2024-10-16 01:44 | ECG_ITS ---
Test Date: 2024-10-16 01:50:21 Measurements Intervals Harleigh Rate: 54 P: 0 WV: 0 QRS: -40 QRSD: 158 T: 55 QT: 478 QTc: 457 Interpretive Statements SINUS BRADYCARDIA WITH COMPLETE HEART BLOCK MARKED LEFT AXIS DEVIATION [QRS AXIS < -30] LEFT BUNDLE BRANCH BLOCK [120+ ms QRS DURATION, 80+ ms Q/S IN V1/V2, 85+ ms R IN I/aVL/V5/V6] No previous ECG available for comparison Electronically Signed On 10-17-2024 15:42:48 GREEN HIDE INSPECTOR by Saad Ovalle M.D.
[2024-10-16] MEDS: ASPIRIN 81 MG CHEWABLE TABLET 324 MG PO (01:55)
[2024-10-16 01:58] LABS: Basophils Absolute Auto 0.1 K/mm3 (0.0-0.1); Basophils Percent Auto 0.6 % (0.2-1.2); Eosinophils Absolute Auto 0.3 K/mm3 (0-0.3); Eosinophils Percent Auto 4.2 % (0-4.4); Hematocrit 39.8 % (37.0-47.0); Hemoglobin 13.6 g/dL (12.0-15.0); Immature Granulocyte Absolute 0.04 K/mm3 (0.00-0.031); Immature Granulocyte Percent A 0.5 % (0-0.5); Lymphocytes Absolute Auto 2.85 K/mm3 (0.9-3.2); Mean Corpuscular HGB Conc 34.2 g/dl (32-36); Mean Corpuscular Hemoglobin 31.8 pg (26-34); Mean Platelet Volume 9.3 fl (7.4-10.4); Monocytes Absolute Auto 0.6 K/mm3 (0.1-0.6); Monocytes Percent Auto 6.9 % (2.6-8.5); Neutrophils Absolute Auto 4.3 K/mm3 (1.3-6.7); Neutrophils Percent Auto 52.8 % (45.5-73.1); Platelet Count Result 201 k/mm3 (150-375); Red Blood Count 4.28 M/mm3 (4.2-5.4); Red Cell Distribution Width 13.5 % (11.5-14.5); White Blood Count 8.2 K/mm3 (4.5-10.0)
[2024-10-16 02:13] LABS: Alanine Aminotransferase 39 U/L (6-35); Albumin Level 4.1 g/dL (3.5-5.1); Alkaline Phosphatase 106 U/L (38-126); Anion Gap 13 mmol/L (4-12); Aspartate Amino Transferase 61 U/L (14-36); Bilirubin,Total 0.9 mg/dL (0.2-1.3); Blood Urea Nitrogen 13 mg/dL (7-17); Calcium 9.1 mg/dL (8.4-10.2); Carbon Dioxide 23 mmol/L (22-30); Chloride 104 mmol/L (98-107); Estimated CRCL calculation 58 ml/min; Estimated Glomerular Filt Rate > 60; Glucose 173 mg/dL (65-110); Lipase 74 U/L (23-300); Sodium 140 mmol/L (137-145)
--- OUTSIDE RECORDS SUMMARY | 2024-10-16 02:18 | XMS_ITS | Referral Summary ---
Author Organization [facility] Address [address] [place] [address] Care Team Providers Care Clinical Laboratory Technician Name Role Phone Joshua Muir MD Primary Care Provider [phone] Encounters Date Type Department Care Team Description 10/04/2024 Orders Only [facility] Family Medicine at [address] [phone] Joshua Muir MD 10/02/2024 Results Follow-Up [facility] Family Medicine at [address] [phone] Joshua Muir MD 10/02/2024 10:45 AM STILL CLEANER TUBE Lab [facility] Medical Office Bldg [address] [place] [phone] Type 2 diabetes mellitus with hyperglycemia, with long-term current use of insulin (HCC); Primary hypertension 10/02/2024 10:26 AM STILL CLEANER TUBE - 10/02/2024 11:59 PM STILL CLEANER TUBE Hospital Encounter [facility] [address] [place] [phone] Subacute cough Discharge Disposition: Discharge to home or self care 10/02/2024 9:30 AM STILL CLEANER TUBE Office Visit [facility] Family Medicine at [address] [phone] Joshua Muir MD Subacute cough (Primary Dx); Type 2 diabetes mellitus with hyperglycemia, with long-term current use of insulin (HCC); Primary hypertension 09/18/2024 6:45 PM STILL CLEANER TUBE Telemedicine [address] [phone] Becky Ramos NP Acute cough (Primary Dx); Post-nasal drainage 09/18/2024 Patient Self-Triage [facility] Health[facility]/ Physicians [address] [place] [phone] Mychart, Generic Provider 09/15/2024 Patient Self-Triage [facility] [address] [place] [phone] Mychart, Generic Provider 09/04/2024 2:45 PM STILL CLEANER TUBE Office Visit [facility] Family Medicine at [address] [place] [phone] Joshua Muir MD Medicare annual wellness visit, subsequent (Primary Dx); Osteopenia of multiple sites; Primary hypertension 08/30/2024 Orders Only [facility] Endocr[facility] [address] [place] [phone] ProviderAltagracia MD 08/24/2024 Telephone [facility] [address] [place] [phone] Rosalinda Valles NP Prior Auth (Ozempic) 08/22/2024 Telephone [facility] [address] [place] [phone] Rosalinda Valles NP [facility] 08/22/2024 1:00 PM STILL CLEANER TUBE Office Visit [facility] [address] [place] [phone] Rosalinda Valles NP Type 2 diabetes [...] DIRECTED WHEN OFF PUMP 05/29/20 15 Active rhvavboc-hvm-b hgl-DH-przmzj 8 mg iron-400 mcg-300 mcg tablet daily. 09/28/19 12 Active omega 2-mry-plr-fish oil 300-1,000 mg capsule daily. 09/28/19 12 [...] hyperglycemia, with long-term current use of insulin ([facility]) Inject for severe hypoglycemia 1 kit 2 08/22/19 25 Active insulin aspart (NovoLOG) 100 unit/mL vial for injectionIndic ations:Type 2 diabetes mellitus with hyperglycemia, with long-term current use of insulin ([facility]) Use 140 units daily via insulin pump. [...] Will obtain UA/Cx. Verified that she uses [employer]. Aware to check results/results letter in [employer]. Will contact by phone if needed. Aware [...] 12/02/2022 Assessment & Plan (08/22/2024 12:59 PM STILL CLEANER TUBE): Chronic problem. Controlled on current regimen. Currently [...] time. Assessment & Plan (08/31/2023 1:26 PM STILL CLEANER TUBE): Chronic problem. Controlled on current regimen. Currently [...] 12/02/2022 Assessment & Plan (08/22/2024 12:59 PM STILL CLEANER TUBE): Chronic problem. Controlled on current Atorvastatin 10mg. Last lipid panel: 01/11/24 LDL=64, WE=949 No changes at this time. Assessment & Plan (05/23/2024 1:07 PM CDT): Chronic problem. Controlled on current Atorvastatin 10mg. Last lipid panel: 01/11/24 LDL=64, WH=302 No changes at this time. Assessment & Plan (08/31/2023 1:26 PM STILL CLEANER TUBE): Chronic problem. Controlled on current Atorvastatin 10mg. Last lipid panel: 05/10/23 LDL=71, EH=209. No changes at this time. Assessment & Plan (06/07/2023 10:19 AM CDT): Chronic problem. Controlled on current Atorvastatin 10mg. Last lipid panel: 05/10/23 LDL=71, PO=577. No changes at this time. Assessment & Plan (12/03/2022 12:59 PM CDT): Chronic problem. Controlled on current Atorvastatin 10mg. Last lipid panel: 07/28/22 LDL=69, TG=99. No changes at this time. Insulin pump status 12/02/2022 Assessment & Plan (08/22/2024 1:48 PM STILL CLEANER TUBE): Pump setting changes -decreased 12a from 0.9 [...] failure Assessment & Plan (08/31/2023 1:27 PM STILL CLEANER TUBE): No pump setting changes at this time. [...] continue supplemental Vitamin D -Continue to monitor primary substance abuse counselor associated with adverse incidents 02/02/2022 Assessment & Plan (02/05/2022 6:34 AM CDT): She is adept in using and managing the insulin pump and CGM. Chronic cervical pain 06/12/2021 CHRISTINE (generalized anxiety disorder) 06/12/2021 Medicare annual wellness visit, subsequent 02/07 Insulin long-term use ([facility]) 02/07/2021 Retinopathy 08/05/2020 Diabetic peripheral neuropathy ([facility]) 013 Assessment & Plan (08/22/2024 1:50 PM STILL CLEANER TUBE): Chronic problem. Currently taking Gabapentin 100mg daily. [...] sleep Assessment & Plan (09/10/2022 4:26 PM STILL CLEANER TUBE): Foot care discussed Start gabapentin Vitamin D deficiency 11/22/2012 Assessment & Plan (02/05/2022 9:30 AM CDT): Continue daily over the counter supplements. Assessment & Plan (11/28/2021 8:56 AM CDT): -Continue current Vitamin D supplement Assessment & Plan (09/01/2021 3:24 PM STILL CLEANER TUBE): -Continue current Vitamin D supplement Assessment & Plan (06/20/2018 2:01 PM STILL CLEANER TUBE): level > 30 07/31, on vitamin D [...] effects Assessment & Plan (09/03/2021 12:27 PM STILL CLEANER TUBE): -Last LDL was 71 in June 2021 -Will continue statin as it is being tolerated without side effects Assessment & Plan (06/20/2018 2:00 PM STILL CLEANER TUBE): on statin. LDL 54 06/01--> recheck Diabetic cataract ([facility]) 09/28/2011 Hypertension 09/28/2011 Assessment & Plan (04/27/2022 2:13 PM CDT): -BP today is 134/72 -Will continue same antihypertensive medications at this time and continue to monitor Assessment & Plan (12/01/2021 2:46 PM CDT): -BP today is 146/70 -Will continue same antihypertensive medications at this time and continue to monitor Assessment & Plan (09/03/2021 12:27 PM STILL CLEANER TUBE): -BP today is 153/83 -Will continue same antihypertensive medications at this time and continue to monitor Assessment & Plan (06/20/2018 2:00 PM STILL CLEANER TUBE): On ARB Type 2 diabetes mellitus with hyperglycemia ([facility]) 09/28/2011 Assessment & Plan (08/22/2024 1:56 PM STILL CLEANER TUBE): Chronic problem. A1c at goal/stable at 6.9%05/23/24 [...] before Assessment & Plan (08/31/2023 2:29 PM STILL CLEANER TUBE): Chronic problem. A1c at goal 6.9% without [...] Please call Dr Cristobal at the [facility] to set up your follow-up appointment. Current medications: Humalog via [employer] Basal rates: 12a 1.15, 4a, 1.55, 8a 1.5, 10a 1.35, 2p 1.3, 4p 1.65 CF 12a 15, 4p 20, 8p 15 CR 12a 3.5, 2p 3 Target 100 AIT 5 Office will contact [employer] to get her added to our account. Assessment & Plan (09/10/2022 4:26 PM STILL CLEANER TUBE): Hba1c was Lab Results Component Value Date [...] 02/08/2024 Assessment & Plan (08/31/2023 1:26 PM STILL CLEANER TUBE): Chronic problem. Currently taking gabapentin 100mg bid. [...] date Assessment & Plan (09/03/2021 12:26 PM STILL CLEANER TUBE): -Currently taking Victoza and Novolog per [employer] [...] today Assessment & Plan (09/19/2018 4:43 PM STILL CLEANER TUBE): Diabetes is stable, no changes to pump, discussed how to cover post meal highs with dynamic arrow changes based on sensitivity. Sensitivity is 15 No changes to pump settings. Assessment & Plan (06/20/2018 1:59 PM STILL CLEANER TUBE): well controlled type 2 DM with neuropathy: [...] on file Legal Sex Female 3:58 AM STILL CLEANER TUBE Gender Identity Not on file Sexual Orientation Not on file Last Filed Vital Signs Vital Sign Reading Time Taken Comments Blood Pressure 191/75 10/02/2024 9:27 AM STILL CLEANER TUBE Pulse 64 10/02/2024 9:27 AM STILL CLEANER TUBE Temperature 36.6 C (97.8 F) 10/02/2024 9:27 AM STILL CLEANER TUBE Respiratory Rate 18 08/22/2024 12:55 PM STILL CLEANER TUBE Oxygen Saturation 96% 10/02/2024 9:27 AM STILL CLEANER TUBE Inhaled Oxygen Concentration - - Weight 86.4 kg (190 lb 8 oz) 10/02/2024 9:27 AM STILL CLEANER TUBE Height 167.6 cm (5' 6 ) 10/02/2024 9:27 AM STILL CLEANER TUBE Body Mass Index 30.75 10/02/2024 9:27 AM STILL CLEANER TUBE Plan of Treatment Not on file Procedures Procedure Name Priority Date/Time Associated Diagnosis Comments EGFR Routine 10/02/2024 10:52 AM STILL CLEANER TUBE Type 2 diabetes mellitus with hyperglycemia, with long-term current use of insulin (HCC) DIFFERENTIAL AUTO Routine 10/02/2024 10: 52 AM STILL CLEANER TUBE Type 2 diabetes mellitus with hyperglycemia, with long-term current use of insulin (HCC) LIPID PANEL Routine 10/02/2024 10:52 AM STILL CLEANER TUBE Primary hypertension CBC WITH AUTO DIFFERENTIAL Routine 10/02/2024 10:52 AM STILL CLEANER TUBE Type 2 diabetes mellitus with hyperglycemia, with long-term current use of insulin (HCC) COMPREHENSIVE METABOLIC PANEL Routine 10/02/2024 10:52 AM STILL CLEANER TUBE Type 2 diabetes mellitus with hyperglycemia, with long-term current use of insulin (HCC) ERYTHROCYTE SEDIMENTATION RATE Routine 10/02/2024 10:52 AM STILL CLEANER TUBE Type 2 diabetes mellitus with hyperglycemia, with long-term current use of insulin (HCC) HEMOGLOBIN A1C Routine 10/02/2024 10:52 AM STILL CLEANER TUBE Type 2 diabetes mellitus with hyperglycemia, with long-term current use of insulin (HCC) XR CHEST PA LATERAL 2 VIEWS Schedule Routine, Read Routine (OP Routine) 10/02/2024 10:35 AM STILL CLEANER TUBE Subacute cough DIABETIC EYE EXAM Routine 09/01/2024 POCT GLUCOSE Routine 08/22/2024 12:58 PM STILL CLEANER TUBE Type 2 diabetes mellitus with hyperglycemia, with long-term current use of insulin (HCC) POCT HEMOGLOBIN A1C Routine 08/22/2024 1 2:58 PM STILL CLEANER TUBE Type 2 diabetes mellitus with hyperglycemia, with long-term current use of insulin (HCC) HM DIABETES EYE EXAM Routine 08/03/2024 7:42 AM STILL CLEANER TUBE ALBUMIN CREATININE RATIO, URINE Routine 08/02/2023 11:24 AM STILL CLEANER TUBE Type 2 diabetes mellitus with hyperglycemia, without long-term current use of insulin (CMS/HCC) ([facility]) DEXA AXIAL SKELETON BONE DENSITY 1 OR MORE SITES Schedule Routine, Read Routine (OP Routine) 12/26/2021 10:41 AM CDT Type 2 diabetes mellitus with diabetic polyneuropathy, with long-term current use of insulin (CMS/HCC) ([facility]) Postmenopausal estrogen deficiency from Last 3 Months or Most Recently Relevant to Health Maintenance Results * eGFR (10/02/2024 10:52 AM STILL CLEANER TUBE) eGFR 74 >=60 mL/min/1. 73 m2 Comment: [...] reviewed 2021. Blood 10/02/2024 10:5 2 AM STILL CLEANER TUBE 10/02/2024 12:46 PM STILL CLEANER TUBE us Joshua Muir MD LAB BLOOD ORDERABLES Final Re sult [id number] [facility] Department [place] [address] * Differential, auto (10/02/2024 10:52 AM STILL CLEANER TUBE) Neutrophil abs 3.0 1.5 - 6.5 K/cumm Imm gran abs 0.0 0.0 - 0.1 K/cumm [facility] Lymphocyte abs 1.7 0.8 - 3.3 K/cumm [facility] Monocyte abs 0.4 0.2 - 0.8 K/cumm [facility] Eosinophil abs 0.3 0.0 - 0.5 K/cumm [facility] Basophil abs 0.0 0.0 - 0.1 K/cumm [facility] Neutrophil pct 55.1 % [facility] Comment: Interpretive Data Percent cell count reference ranges are not reported, since discordance with absolute values may lead to misinterpretation of CBC data. Current Interpretive Data was last revised on 2017. Imm gran pct 0.2 % [facility] Comment: Interpretive Data Percent cell count reference ranges are not reported, since discordance with absolute values may lead to misinterpretation of CBC data. Current Interpretive Data was last revised on 2017. Lymphocyte pct 30.7 % [facility] Comment: Interpretive Data Percent cell count reference ranges are not reported, since discordance with absolute values may lead to misinterpretation of CBC data. Current Interpretive Data was last revised on 2017. Monocyte pct 8.2 % [facility] Comment: Interpretive Data Percent cell count reference ranges are not reported, since discordance with absolute values may lead to misinterpretation of CBC data. Current Interpretive Data was last revised on 2017. Eosinophil pct 5.2 % [facility] Comment: Interpretive Data Percent cell count reference ranges are not reported, since discordance with absolute values may lead to misinterpretation of CBC data. Current Interpretive Data was last revised on 2017. Basophil pct 0.6 % [facility] Comment: Interpretive Data Percent cell count reference ranges are not reported, since discordance with absolute values may lead to misinterpretation of CBC data. Current Interpretive Data was last revised on 2017. Blood 10/02/2024 10:5 2 AM STILL CLEANER TUBE 10/02/2024 12:46 PM STILL CLEANER TUBE us Joshua Muir MD LAB BLOOD ORDERABLES Final Re sult [facility] [address] [facility] Department [place] [address] * (ABNORMAL) CBC with auto differential (10/02/2024 10:52 AM STILL CLEANER TUBE) [facility] WBC 5.4 3.8 - 9.9 K/cumm Hgb 12.2 11.9 - 15.5 g/dL [facility] Hct 36.8 35.6 - 45.5 % [facility] Plt 222 150 - 400 K/cumm [facility] MPV 9.9 9.1 - 12.3 fL [facility] RBC 3.89(L) 3.90 - 5.20 M/cumm [facility] MCV 94.6 81.3 - 96.4 fL [facility] MCH 31.4 27.1 - 33.3 pg [facility] MCHC 33.2 32.3 - 35.7 g/dL [facility] RDW CV 13.4 11.1 - 14.9 % [facility] RDW SD 46.0 35.7 - 48.1 fL [facility] NRBC abs 0.00 0.00 - 0.01 K/cumm [facility] Blood 10/02/2024 10:5 2 AM STILL CLEANER TUBE 10/02/2024 12:46 PM STILL CLEANER TUBE Joshua Muir MD LAB BLOOD ORDERABLES Final Re sult Performing Organization Address [facility] de Phone Number [address] [place] [address] * Erythrocyte sedimentation rate (10/02/2024 10:52 AM STILL CLEANER TUBE) [facility] Erythrocyte sedimentation rate 25 1 - 30 mm/hr Blood 10/02/2024 10:5 2 AM STILL CLEANER TUBE 10/02/2024 12:46 PM STILL CLEANER TUBE Joshua Muir MD LAB BLOOD ORDERABLES Final Re sult Performing Organization Address [facility] Co de Phone Number [address] [place] [address] * (ABNORMAL) Hemoglobin A1c (10/02/2024 10:52 AM STILL CLEANER TUBE) Hgb A1C 6.8(H) 4.0 - 5.6 % Estimated Average Glucose 148 mg/dL [facility] Comment: The ADA recommends reporting an estimated Average Glucose (eAG) with all Hemoglobin A1c results using the equation derived from a study of 507 normal and diabetic adults. Minority populations were underrepresented and children were not included. (Diabetes Care 31:4362-0747, 2008). The eAG is not equivalent to a fasting glucose. Blood 10/02/2024 10:5 2 AM STILL CLEANER TUBE 10/02/2024 12:46 PM STILL CLEANER TUBE us Joshua Muir MD LAB BLOOD ORDERABLES Final Re sult [facility] [address] [facility] Department [place] [address] * Lipid panel (10/02/2024 10:52 AM STILL CLEANER TUBE) Cholesterol 113 30 - 199 mg/dL Comment: [...] last revised on 2018. Chol/HDL ratio 3 [facility] Blood 10/02/2024 10:5 2 AM STILL CLEANER TUBE 10/02/2024 12:46 PM STILL CLEANER TUBE Joshua Muir MD LAB BLOOD ORDERABLES Final Re sult [facility] [address] [facility] Department [place] [address] * Comprehensive metabolic panel (10/02/2024 10:52 AM STILL CLEANER TUBE) Pathologist [facility] Sodium 139 135 - 145 mmol/L Potassium, pl 3.8 3.3 - 4.9 mmol/L [facility] Chloride 103 97 - 110 mmol/L [facility] CO2 26 22 - 32 mmol/L [facility] Anion gap 10 2 - 15 mmol/L [facility] BUN 13 6 - 25 mg/dL [facility] Creatinine 0.80 0.60 - 1.10 mg/dL [facility] Glucose 101 70 - 199 mg/dL [facility] Comment: Interpretive Data Fasting glucose >/= [...] 2022. Calcium 9.4 8.5 - 10.3 mg/dL [facility] Bilirubin, total 0.6 0.1 - 1.2 mg/dL [facility] Protein, pl 7.0 6.5 - 8.5 g/dL [facility] Albumin 3.5 3.5 - 5.0 g/dL [facility] Alk phos 98 40 - 130 Units/L [facility] ALT 21 7 - 45 Units/L [facility] AST 39 10 - 45 Units/L [facility] Blood 10/02/2024 10:5 2 AM STILL CLEANER TUBE 10/02/2024 12:46 PM STILL CLEANER TUBE us Joshua Muir MD LAB BLOOD ORDERABLES Final Re sult [facility] [address] [facility] Department [place] [address] * XR Chest Pa Lateral 2 Views (10/02/2024 10:35 AM STILL CLEANER TUBE) Anatomical Region Laterality Modality Body, Chest N/A Computed Radiogr aphy 10/04/2024 4:38 PM STILL CLEANER TUBE Narrative 10/04/2024 4:40 PM STILL CLEANER TUBE EXAM DESCRIPTION: XR CHEST PA LATERAL 2 [...] Patrick Campa M.D. AM T: Report ID: [id number] Reading Location: [id number] Procedure Note Patrick Campa MD - 10/04/2024 [...] Patrick Campa M.D. AM T: Report ID: [id number] Reading Location: [place] [address] Result [facility] Joshua Muir MD IMG XR PROCEDURES Final Resul t * (ABNORMAL) Diabetic Eye Exam (09/01/2024) Impressions Teresa Johnston RN - 09/01/2024 ABNORMAL Result [facility] Historical Provider [facility] Final Result * (ABNORMAL) POCT hemoglobin A1c (08/22/2024 12:58 PM STILL CLEANER TUBE) Hemoglobin A1C, POC 7.0 4.0 - 5.6 % Blood 08/22/2024 12:5 8 PM STILL CLEANER TUBE Result [facility] Rosalinda Valles NP POINT OF CARE TEST ORDERA BLES Final Result * (ABNORMAL) POCT glucose (08/22/2024 12:58 PM STILL CLEANER TUBE) Glucose Blood, POC 144 mg/dL Blood 08/22/2024 12:5 8 PM STILL CLEANER TUBE Rosalinda Valles NP POINT OF CARE TEST ORDERA BLES Final Result * (ABNORMAL) DIABETES EYE EXAM (08/03/2024 7:42 AM STILL CLEANER TUBE) Result [facility] Historical Provider [facility] Final Result * Albumin Creatinine Ratio, Urine (08/02/2023 11:24 AM STILL CLEANER TUBE) Albumin Ur <12.0 mg/L [facility] Comment: Interpretive Data No reference range established. Current interpretive data was last revised 2018. Creatinine Ur 106.6 mg/dL [facility] Comment: Interpretive Data No reference range established. Current interpretive data was last revised 2018. Albumin Creatinine Ratio, Ur <11 1 - 29 mg/g [facility] Urine 08/02/2023 11:2 4 AM STILL CLEANER TUBE 08/02/2023 1:47 PM STILL CLEANER TUBE us Joshua Muir MD LAB URINE ORDERABLES Final Re sult [facility] [id number] Department [place] [address] * Dexa Axial Skeleton Bone Density 1 [...] by the International Society of Clinical Densitometry. [id number] Shruti Spann [employer] IMG DXA PROCEDURES Final Re sult from Last 3 Months or Most Recently Relevant to Health Maintenance Insurance MEDICARE [facility] MEDICARE [facility] MEDICARE SUPPLEMENT Care Teams Clinical Laboratory Technician Relationship Specialty Start Date End Date Joshua Muir MD PCP - General Family Medicine 08/18/22
--- OUTSIDE RECORDS SUMMARY | 2024-10-16 02:18 | XMS_ITS | Encounter Summary ---
Author Organization [facility] Healthcare Address [address] [place] [address] Care Team Providers Care American Board Certified Orthotist Name Role Phone Cachorro Garcia MD Primary Care Provider [phone] Reason for Visit * Diagnostic Imaging (Routine) - Closed Specialty Diagnoses / Procedures Referred By Leti rice Referred To Contact Procedures Breast Imaging Screening Outside Reference Referral, Self Referral ID Status Reason Start Date Expiration Date Visits Re quested Visits Authorized [id number] Closed 08/20/2022 09/19/2023 1 1 Encounter Details Date Type Department Care Team (Late st Contact Info) Description 03/16/2018 Hospital Encounter [facility] Radiology [facility] [address] [place] [address] Social History Tobacco Use Types Packs/Day Years [...] on file Legal Sex Female 3:58 AM REACHER Gender Identity Not on file Sexual Orientation [...] CDT) Impressions [facility] - 08/20/2022 11:27 AM REACHER These images are for Reference purposes only and have not been reviewed by [facility] Radiology. There will be no report generated by a [facility] Radiologist. Narrative [facility]_MAMMO[facility] - 08/20/2022 11:27 AM REACHER EXAMINATION: Images For Reference Purposes Only us Self Referral IMG MAMMO PROCEDURES Final Resul t [facility] documented in this encounter Visit Diagnoses Not on filedocumented in this encounter Care Teams American Board Certified Orthotist Relationship Specialty Start Date End Date Cachorro Garcia MD [address] [place] [address] PCP - General 12/07/16 06/11/21 documented as of this encounter
--- OUTSIDE RECORDS SUMMARY | 2024-10-16 02:18 | XMS_ITS | Clinical Summary ---
Author Organization [facility] Address [address] [place] [address] Care Team Providers Care Visitor Services Specialist Name Role Phone Joshua Muir MD Primary Care Provider [phone] Allergies Active Allergy Reactions Criticality Noted Date Comments Erythromycin Hives Medium Medications insulin syringe-needle U-100 1/2 mL 31 gauge x 15/64 syringe USE DIRECTED WHEN OFF PUMP 05/29/20 15 Active akryqoew-cui-h vpk-IS-irzitz 8 mg iron-400 mcg-300 mcg tablet daily. 09/28/19 12 Active omega 3-kne-wio-fish oil 300-1,000 mg capsule daily. 09/28/19 12 [...] hyperglycemia, with long-term current use of insulin ([facility]) Inject for severe hypoglycemia 1 kit 2 08/22/19 25 Active insulin aspart (NovoLOG) 100 unit/mL vial for injectionIndic ations:Type 2 diabetes mellitus with hyperglycemia, with long-term current use of insulin ([facility]) Use 140 units daily via [...] mychart. Aware to check results/results letter in X-IOhart. Will contact by phone if needed. Aware [...] 12/02/2022 Assessment & Plan (08/22/2024 12:59 PM PUBLIC ADMINISTRATION TEACHER): Chronic problem. Controlled on current regimen. Currently [...] time. Assessment & Plan (08/31/2023 1:26 PM PUBLIC ADMINISTRATION TEACHER): Chronic problem. Controlled on current regimen. Currently [...] 12/02/2022 Assessment & Plan (08/22/2024 12:59 PM PUBLIC ADMINISTRATION TEACHER): Chronic problem. Controlled on current Atorvastatin 10mg. Last lipid panel: 01/11/24 LDL=64, JK=601 No changes at this time. Assessment & Plan (05/23/2024 1:07 PM CDT): Chronic problem. Controlled on current Atorvastatin 10mg. Last lipid panel: 01/11/24 LDL=64, DH=452 No changes at this time. Assessment & Plan (08/31/2023 1:26 PM PUBLIC ADMINISTRATION TEACHER): Chronic problem. Controlled on current Atorvastatin 10mg. Last lipid panel: 05/10/23 LDL=71, UF=753. No changes at this time. Assessment & Plan (06/07/2023 10:19 AM CDT): Chronic problem. Controlled on current Atorvastatin 10mg. Last lipid panel: 05/10/23 LDL=71, PL=446. No changes at this time. Assessment & Plan (12/03/2022 12:59 PM CDT): Chronic problem. Controlled on current Atorvastatin 10mg. Last lipid panel: 07/28/22 LDL=69, TG=99. No changes at this time. Insulin pump status 12/02/2022 Assessment & Plan (08/22/2024 1:48 PM PUBLIC ADMINISTRATION TEACHER): Pump setting changes -decreased 12a from 0.9 [...] failure Assessment & Plan (08/31/2023 1:27 PM PUBLIC ADMINISTRATION TEACHER): No pump setting changes at this time. [...] continue supplemental Vitamin D -Continue to monitor head sugar reprocess operator associated with adverse incidents 02/02/2022 Assessment & Plan (02/05/2022 6:34 AM CDT): She is adept in using and managing the insulin pump and CGM. Chronic cervical pain 06/12/2021 CHRISTINE (generalized anxiety disorder) 06/12/2021 Medicare annual wellness visit, subsequent 02/07 Insulin long-term use ([facility]) 02/07/2021 Retinopathy 08/05/2020 Diabetic peripheral neuropathy ([facility]) 013 Assessment & Plan (08/22/2024 1:50 PM PUBLIC ADMINISTRATION TEACHER): Chronic problem. Currently taking Gabapentin 100mg daily. [...] sleep Assessment & Plan (09/10/2022 4:26 PM PUBLIC ADMINISTRATION TEACHER): Foot care discussed Start gabapentin Vitamin D deficiency 11/22/2012 Assessment & Plan (02/05/2022 9:30 AM CDT): Continue daily over the counter supplements. Assessment & Plan (11/28/2021 8:56 AM CDT): -Continue current Vitamin D supplement Assessment & Plan (09/01/2021 3:24 PM PUBLIC ADMINISTRATION TEACHER): -Continue current Vitamin D supplement Assessment & Plan (06/20/2018 2:01 PM PUBLIC ADMINISTRATION TEACHER): level > 30 07/31, on vitamin D [...] effects Assessment & Plan (09/03/2021 12:27 PM PUBLIC ADMINISTRATION TEACHER): -Last LDL was 71 in June 2021 -Will continue statin as it is being tolerated without side effects Assessment & Plan (06/20/2018 2:00 PM PUBLIC ADMINISTRATION TEACHER): on statin. LDL 54 06/01--> recheck Diabetic cataract ([facility]) 09/28/2011 Hypertension 09/28/2011 Assessment & Plan (04/27/2022 2:13 PM CDT): -BP today is 134/72 -Will continue same antihypertensive medications at this time and continue to monitor Assessment & Plan (12/01/2021 2:46 PM CDT): -BP today is 146/70 -Will continue same antihypertensive medications at this time and continue to monitor Assessment & Plan (09/03/2021 12:27 PM PUBLIC ADMINISTRATION TEACHER): -BP today is 153/83 -Will continue same antihypertensive medications at this time and continue to monitor Assessment & Plan (06/20/2018 2:00 PM PUBLIC ADMINISTRATION TEACHER): On ARB Type 2 diabetes mellitus with hyperglycemia ([facility]) 09/28/2011 Assessment & Plan (08/22/2024 1:56 PM PUBLIC ADMINISTRATION TEACHER): Chronic problem. A1c at goal/stable at 6.9%05/23/24 [...] before Assessment & Plan (08/31/2023 2:29 PM PUBLIC ADMINISTRATION TEACHER): Chronic problem. A1c at goal 6.9% without [...] Please call Dr Cristobal at the [facility] to set up your follow-up appointment. Current medications: Humalog via T-Slim Basal rates: 12a 1.15, 4a, 1.55, 8a 1.5, 10a 1.35, 2p 1.3, 4p 1.65 CF 12a 15, 4p 20, 8p 15 CR 12a 3.5, 2p 3 Target 100 AIT 5 Office will contact Ian to get her added to our account. Assessment & Plan (09/10/2022 4:26 PM PUBLIC ADMINISTRATION TEACHER): Hba1c was Lab Results Component Value Date [...] 02/08/2024 Assessment & Plan (08/31/2023 1:26 PM PUBLIC ADMINISTRATION TEACHER): Chronic problem. Currently taking gabapentin 100mg bid. [...] date Assessment & Plan (09/03/2021 12:26 PM PUBLIC ADMINISTRATION TEACHER): -Currently taking Victoza and Novolog per [employer] [...] today Assessment & Plan (09/19/2018 4:43 PM PUBLIC ADMINISTRATION TEACHER): Diabetes is stable, no changes to pump, discussed how to cover post meal highs with dynamic arrow changes based on sensitivity. Sensitivity is 15 No changes to pump settings. Assessment & Plan (06/20/2018 1:59 PM PUBLIC ADMINISTRATION TEACHER): well controlled type 2 DM with neuropathy: [...] Description 10/04/2024 Orders Only [facility] Family Medicine at [address] [place] [address] Joshua Muir MD 10/02/2024 10:45 AM PUBLIC ADMINISTRATION TEACHER Lab [facility] [address] [place] [id number] Type 2 diabetes mellitus with hyperglycemia, with long-term current use of insulin (HCC); Primary hypertension 10/02/2024 10:26 AM PUBLIC ADMINISTRATION TEACHER - 10/02/2024 11:59 PM PUBLIC ADMINISTRATION TEACHER Hospital Encounter [facility] [address] [place] [address] Subacute cough Discharge Disposition: Discharge to home or self care 10/02/2024 9:30 AM PUBLIC ADMINISTRATION TEACHER Office Visit [facility] at [address] [phone] Joshua Muir MD Subacute cough (Primary Dx); Type 2 diabetes mellitus with hyperglycemia, with long-term current use of insulin (HCC); Primary hypertension 10/02/2024 Results Follow-Up [facility] at [address] [phone] Joshua Muir MD 09/18/2024 6:45 PM PUBLIC ADMINISTRATION TEACHER Telemedicine [facility] Care [address] [place] [phone] Becky Ramos NP Acute cough (Primary Dx); Post-nasal drainage 09/18/2024 Patient Self-Triage [facility] [address] [place] [phone] Mychart, Generic Provider 09/15/2024 Patient Self-Triage [facility] [address] [place] [address] Mychart, Generic Provider 09/04/2024 2:45 PM PUBLIC ADMINISTRATION TEACHER Office Visit [facility] at [address] [place] [address] Joshua Muir MD Medicare annual wellness visit, subsequent (Primary Dx); Osteopenia of multiple sites; Primary hypertension 08/30/2024 Orders Only [facility] [address] [place] [phone] ProviderAltagracia MD 08/24/2024 Telephone [facility] [address] [place] [phone] Rosalinda Valles NP Prior Auth (Ozempic) 08/22/2024 1:00 PM PUBLIC ADMINISTRATION TEACHER Office Visit [facility] [address] [place] [phone] Rosalinda Valles NP Type 2 diabetes mellitus with hyperglycemia, with long-term current use of insulin (HCC) (Primary Dx); Hypertension associated with type 2 diabetes mellitus (HCC); Hyperlipidemia associated with type 2 diabetes mellitus (HCC); Diabetic peripheral neuropathy (CMS/HCC) (HCC); Insulin pump status 08/22/2024 Telephone [facility] [address] [place] [phone] Rosalinda Valles NP [employer] from Last [...] on file Legal Sex Female 3:58 AM PUBLIC ADMINISTRATION TEACHER Gender Identity Not on file Sexual Orientation Not on file Obstetrics History Para Term AB IAB SAB Ectopic Multiple Livin g Live Births 4 4 4 Date Outcome GA Total Labor Labor/2nd/3rd Weight Sex Type Anes PTL Roz A1 A5 Name Clin Term Term Term Term Last Filed Vital Signs Vital Sign Reading Time Taken Comments Blood Pressure 191/75 10/02/2024 9:27 AM PUBLIC ADMINISTRATION TEACHER Pulse 64 10/02/2024 9:27 AM PUBLIC ADMINISTRATION TEACHER Temperature 36.6 C (97.8 F) 10/02/2024 9:27 AM PUBLIC ADMINISTRATION TEACHER Respiratory Rate 18 08/22/2024 12:55 PM PUBLIC ADMINISTRATION TEACHER Oxygen Saturation 96% 10/02/2024 9:27 AM PUBLIC ADMINISTRATION TEACHER Inhaled Oxygen Concentration - - Weight 86.4 kg (190 lb 8 oz) 10/02/2024 9:27 AM PUBLIC ADMINISTRATION TEACHER Height 167.6 cm (5' 6 ) 10/02/2024 9:27 AM PUBLIC ADMINISTRATION TEACHER Body Mass Index 30.75 10/02/2024 9:27 AM PUBLIC ADMINISTRATION TEACHER Plan of Treatment Health Maintenance Due Date [...] Diagnosis Comments EGFR Routine 10/02/2024 10:52 AM PUBLIC ADMINISTRATION TEACHER Type 2 diabetes mellitus with hyperglycemia, with long-term current use of insulin (HCC) DIFFERENTIAL AUTO Routine 10/02/2024 10: 52 AM PUBLIC ADMINISTRATION TEACHER Type 2 diabetes mellitus with hyperglycemia, with long-term current use of insulin (HCC) LIPID PANEL Routine 10/02/2024 10:52 AM PUBLIC ADMINISTRATION TEACHER Primary hypertension CBC WITH AUTO DIFFERENTIAL Routine 10/02/2024 10:52 AM PUBLIC ADMINISTRATION TEACHER Type 2 diabetes mellitus with hyperglycemia, with long-term current use of insulin (HCC) COMPREHENSIVE METABOLIC PANEL Routine 10/02/2024 10:52 AM PUBLIC ADMINISTRATION TEACHER Type 2 diabetes mellitus with hyperglycemia, with long-term current use of insulin (HCC) ERYTHROCYTE SEDIMENTATION RATE Routine 10/02/2024 10:52 AM PUBLIC ADMINISTRATION TEACHER Type 2 diabetes mellitus with hyperglycemia, with long-term current use of insulin ([facility]) HEMOGLOBIN A1C Routine 10/02/2024 10:52 AM PUBLIC ADMINISTRATION TEACHER Type 2 diabetes mellitus with hyperglycemia, with long-term current use of insulin ([facility]) XR CHEST PA LATERAL 2 VIEWS Schedule Routine, Read Routine (OP Routine) 10/02/2024 10:35 AM PUBLIC ADMINISTRATION TEACHER Subacute cough DIABETIC EYE EXAM Routine 09/01/2024 POCT GLUCOSE Routine 08/22/2024 12:58 PM PUBLIC ADMINISTRATION TEACHER Type 2 diabetes mellitus with hyperglycemia, with long-term current use of insulin ([facility]) POCT HEMOGLOBIN A1C Routine 08/22/2024 1 2:58 PM PUBLIC ADMINISTRATION TEACHER Type 2 diabetes mellitus with hyperglycemia, with long-term current use of insulin ([facility]) HM DIABETES EYE EXAM Routine 08/03/2024 7:42 AM PUBLIC ADMINISTRATION TEACHER ALBUMIN CREATININE RATIO, URINE Routine 08/02/2023 11:24 AM PUBLIC ADMINISTRATION TEACHER Type 2 diabetes mellitus with hyperglycemia, without long-term current use of insulin (CMS/HCC) ([facility]) DEXA AXIAL SKELETON BONE DENSITY 1 OR MORE SITES Schedule Routine, Read Routine (OP Routine) 12/26/2021 10:41 AM CDT Type 2 diabetes mellitus with diabetic polyneuropathy, with long-term current use of insulin (CMS/HCC) (HCC) Postmenopausal estrogen deficiency from Last 3 Months or Most Recently Relevant to Health Maintenance Results * eGFR (10/02/2024 10:52 AM PUBLIC ADMINISTRATION TEACHER) Pathologist [facility] eGFR 74 >=60 mL/min/1. 73 m2 Comment: [...] reviewed 2021. Blood 10/02/2024 10:5 2 AM PUBLIC ADMINISTRATION TEACHER 10/02/2024 12:46 PM PUBLIC ADMINISTRATION TEACHER us Joshua Muir MD LAB BLOOD ORDERABLES Final Re sult [facility] [address] [facility] [place] [address] * Differential, auto (10/02/2024 10:52 AM PUBLIC ADMINISTRATION TEACHER) Pathologist [facility] Neutrophil abs 3.0 1.5 - 6.5 K/cumm Imm gran abs 0.0 0.0 - 0.1 K/cumm [facility] Lymphocyte abs 1.7 0.8 - 3.3 K/cumm [facility] Monocyte abs 0.4 0.2 - 0.8 K/cumm [facility] Eosinophil abs 0.3 0.0 - 0.5 K/cumm [facility] Basophil abs 0.0 0.0 - 0.1 K/cumm [facility] Neutrophil pct 55.1 % [facility] Comment: Interpretive Data Percent cell count reference ranges are not reported, since discordance with absolute values may lead to misinterpretation of CBC data. Current Interpretive Data was last revised on 2017. Imm gran pct 0.2 % [facility] Comment: Interpretive Data Percent cell count reference ranges are not reported, since discordance with absolute values may lead to misinterpretation of CBC data. Current Interpretive Data was last revised on 2017. Lymphocyte pct 30.7 % [facility] Comment: Interpretive Data Percent cell count reference ranges are not reported, since discordance with absolute values may lead to misinterpretation of CBC data. Current Interpretive Data was last revised on 2017. Monocyte pct 8.2 % [facility] Comment: Interpretive Data Percent cell count reference ranges are not reported, since discordance with absolute values may lead to misinterpretation of CBC data. Current Interpretive Data was last revised on 2017. Eosinophil pct 5.2 % [facility] Comment: Interpretive Data Percent cell count reference ranges are not reported, since discordance with absolute values may lead to misinterpretation of CBC data. Current Interpretive Data was last revised on 2017. Basophil pct 0.6 % [facility] Comment: Interpretive Data Percent cell count reference ranges are not reported, since discordance with absolute values may lead to misinterpretation of CBC data. Current Interpretive Data was last revised on 2017. Blood 10/02/2024 10:5 2 AM PUBLIC ADMINISTRATION TEACHER 10/02/2024 12:46 PM PUBLIC ADMINISTRATION TEACHER us Joshua Muir MD LAB BLOOD ORDERABLES Final Re sult [facility] [address] [facility] [place] [address] * (ABNORMAL) CBC with auto differential (10/02/2024 10:52 AM PUBLIC ADMINISTRATION TEACHER) WBC 5.4 3.8 - 9.9 K/cumm Hgb 12.2 11.9 - 15.5 g/dL [facility] Hct 36.8 35.6 - 45.5 % [facility] Plt 222 150 - 400 K/cumm [facility] MPV 9.9 9.1 - 12.3 fL [facility] RBC 3.89(L) 3.90 - 5.20 M/cumm [facility] MCV 94.6 81.3 - 96.4 fL [facility] MCH 31.4 27.1 - 33.3 pg [facility] MCHC 33.2 32.3 - 35.7 g/dL [facility] RDW CV 13.4 11.1 - 14.9 % [facility] RDW SD 46.0 35.7 - 48.1 fL [facility] NRBC abs 0.00 0.00 - 0.01 K/cumm [facility] Blood 10/02/2024 10:5 2 AM PUBLIC ADMINISTRATION TEACHER 10/02/2024 12:46 PM PUBLIC ADMINISTRATION TEACHER Joshua Muir MD LAB BLOOD ORDERABLES Final Re sult Performing Organization Address [facility] Co de Phone Number [address] [employer] [address] * Erythrocyte sedimentation rate (10/02/2024 10:52 AM PUBLIC ADMINISTRATION TEACHER) Pathologist [facility] Erythrocyte sedimentation rate 25 1 - 30 mm/hr Blood 10/02/2024 10:5 2 AM PUBLIC ADMINISTRATION TEACHER 10/02/2024 12:46 PM PUBLIC ADMINISTRATION TEACHER Joshua Muir MD LAB BLOOD ORDERABLES Final sult Performing Organization Address [facility] de Phone Number [address] [address] * (ABNORMAL) Hemoglobin A1c (10/02/2024 10:52 AM PUBLIC ADMINISTRATION TEACHER) Hgb A1C 6.8(H) 4.0 - 5.6 % Estimated Average Glucose 148 mg/dL [facility] Comment: The ADA recommends reporting an estimated Average Glucose (eAG) with all Hemoglobin A1c results using the equation derived from a study of 507 normal and diabetic adults. Minority populations were underrepresented and children were not included. (Diabetes Care 31:4476-1718, 2008). The eAG is not equivalent to a fasting glucose. Blood 10/02/2024 10:5 2 AM PUBLIC ADMINISTRATION TEACHER 10/02/2024 12:46 PM PUBLIC ADMINISTRATION TEACHER us Joshua Muir MD LAB BLOOD ORDERABLES Final Re sult [facility] [address] [facility] [place] [address] * Lipid panel (10/02/2024 10:52 AM PUBLIC ADMINISTRATION TEACHER) Cholesterol 113 30 - 199 mg/dL Comment: [...] [facility]CHER Blood 10/02/2024 10:5 2 AM PUBLIC ADMINISTRATION TEACHER 10/02/2024 12:46 PM PUBLIC ADMINISTRATION TEACHER us Joshua Muir MD LAB BLOOD ORDERABLES Final Re sult [facility] [address] [facility] [place] [address] * Comprehensive metabolic panel (10/02/2024 10:52 AM PUBLIC ADMINISTRATION TEACHER) Sodium 139 135 - 145 mmol/L Potassium, pl 3.8 3.3 - 4.9 mmol/L [facility] Chloride 103 97 - 110 mmol/L [facility] CO2 26 22 - 32 mmol/L [facility] Anion gap 10 2 - 15 mmol/L [facility] BUN 13 6 - 25 mg/dL [facility] Creatinine 0.80 0.60 - 1.10 mg/dL [facility] Glucose 101 70 - 199 mg/dL [facility] Comment: Interpretive Data Fasting glucose >/= [...] 2022. Calcium 9.4 8.5 - 10.3 mg/dL [facility] Bilirubin, total 0.6 0.1 - 1.2 mg/dL [facility] Protein, pl 7.0 6.5 - 8.5 g/dL [facility] Albumin 3.5 3.5 - 5.0 g/dL [facility] Alk phos 98 40 - 130 Units/L [facility] ALT 21 7 - 45 Units/L [facility] AST 39 10 - 45 Units/L [facility] Blood 10/02/2024 10:5 2 AM PUBLIC ADMINISTRATION TEACHER 10/02/2024 12:46 PM PUBLIC ADMINISTRATION TEACHER us Joshua Muir MD LAB BLOOD ORDERABLES Final Re sult [facility] [address] [facility] [place] [address] * XR Chest Pa Lateral 2 Views (10/02/2024 10:35 AM PUBLIC ADMINISTRATION TEACHER) Anatomical Region Laterality Modality Body, Chest N/A Computed Radiogr aphy 10/04/2024 4:38 PM PUBLIC ADMINISTRATION TEACHER Narrative 10/04/2024 4:40 PM PUBLIC ADMINISTRATION TEACHER EXAM DESCRIPTION: XR CHEST PA LATERAL 2 [...] Patrick Campa M.D. AM T: Report ID: [id number] Reading Location: [place] [address] Procedure Note Patrick Campa MD - 10/04/2024 [...] Patrick Campa M.D. AM T: Report ID: [id number] Reading Location: [id number] Joshua Muir MD IMG XR PROCEDURES Final Resul t * (ABNORMAL) Diabetic Eye Exam (09/01/2024) Teresa French, RN - 09/01/2024 ABNORMAL Historical Provider HEALTH MAINTENANCE Final Result * (ABNORMAL) POCT hemoglobin A1c (08/22/2024 12:58 PM PUBLIC ADMINISTRATION TEACHER) Hemoglobin A1C, POC 7.0 4.0 - 5.6 % Blood 08/22/2024 12:5 8 PM PUBLIC ADMINISTRATION TEACHER Rosalinda Valles NP POINT OF CARE TEST ORDERA BLES Final Result * (ABNORMAL) POCT glucose (08/22/2024 12:58 PM PUBLIC ADMINISTRATION TEACHER) Glucose Blood, POC 144 mg/dL Blood 08/22/2024 12:5 8 PM PUBLIC ADMINISTRATION TEACHER Rosalinda Valles NP POINT OF CARE TEST ORDERA BLES Final Result * (ABNORMAL) DIABETES EYE EXAM (08/03/2024 7:42 AM PUBLIC ADMINISTRATION TEACHER) Historical Provider HEALTH MAINTENANCE Final Result * Albumin Creatinine Ratio, Urine (08/02/2023 11:24 AM PUBLIC ADMINISTRATION TEACHER) Albumin Ur <12.0 mg/L [facility] Comment: Interpretive Data No reference range established. Current interpretive data was last revised 2018. Creatinine Ur 106.6 mg/dL [facility] Comment: Interpretive Data No reference range established. Current interpretive data was last revised 2018. Albumin Creatinine Ratio, Ur <11 1 - 29 mg/g [facility] Urine 08/02/2023 11:2 4 AM PUBLIC ADMINISTRATION TEACHER 08/02/2023 1:47 PM PUBLIC ADMINISTRATION TEACHER us Joshua Muir MD LAB URINE ORDERABLES Final Re sult [facility] [address] [place] [address] * Dexa Axial Skeleton Bone Density 1 or 2 Site (12/26/2021 10:41 AM CDT) Anatomical Region Laterality Modality Body N/A Radiographic Lakesha ging Narrative 12/30/2021 12:30 PM CDT Patient Name: Lisa Cancino Date of : 1940 Date of scan: 12/26/2021 Bone mineral density was performed on a HoloBright[employer] Discovery Densitometer. Based on machine cross-calibration and [...] by the International Society of Clinical Densitometry. [id number] Shruti Spann NP IMG DXA PROCEDURES Final Re sult from Last 3 Months or Most Recently Relevant to Health Maintenance Insurance MEDICARE [facility] MEDICARE [facility] MEDICARE SUPPLEMENT Care Teams Visitor Services Specialist Relationship Specialty Start Date End Date Joshua Muir MD PCP - General Family Medicine 08/18/22
--- OUTSIDE RECORDS SUMMARY | 2024-10-16 02:18 | XMS_ITS | Encounter Summary ---
Author Organization [facility] Healthcare Address [address] [place] [address] Care Team Providers Care Scientific Recruiter Name Role Phone Joshua Muir MD Primary Care Provider [phone] Encounter Details Date Type Department Care Team (Late st Contact Info) Description 10/02/2024 Results Follow-Up [facility] Family Medicine at [address] [place] [id number] Joshua Muir MD [address] [place] [address] [phone] Social History Tobacco Use Types Packs/Day Years [...] on file Legal Sex Female 3:58 AM UTILIZATION ENGINEER Gender Identity Not on file Sexual Orientation Not on file documented as of this encounter Plan of Treatment Not on file documented as of this encounter Visit Diagnoses Not on filedocumented in this encounter Care Teams Scientific Recruiter Relationship Specialty Start Date End Date Joshua Muir MD PCP - General Family Medicine 08/18/22 documented as of this encounter
--- OUTSIDE RECORDS SUMMARY | 2024-10-16 02:18 | XMS_ITS | Encounter Summary ---
Author Organization [facility] Healthcare Address [address] [place] [address] Care Team Providers Care Shirt Creaser Name Role Phone Cachorro Garcia MD Primary Care Provider [phone] Reason for Visit * Diagnostic Imaging (Routine) - Closed Specialty Diagnoses / Procedures Referred By Leti rice Referred To Contact Procedures Breast Imaging Screening Outside Reference Referral, Self Referral ID Status Reason Start Date Expiration Date Visits Re quested Visits Authorized [id number] Closed 08/20/2022 09/19/2023 1 1 Encounter Details Date Type Department Care Team (Late st Contact Info) Description 04/11/2019 Hospital Encounter [facility] [address] [place] [id number] Social History Tobacco Use Types Packs/Day Years [...] on file Legal Sex Female 3:58 AM LENS GENERATING MACHINE TENDER Gender Identity Not on file Sexual Orientation [...] CDT) Impressions [facility] - 08/20/2022 11:27 AM LENS GENERATING MACHINE TENDER These images are for Reference purposes only and have not been reviewed by [facility]. There will be no report generated by a [facility]iologist. Narrative [facility] - 08/20/2022 11:27 AM LENS GENERATING MACHINE TENDER EXAMINATION: Images For Reference Purposes Only us Self Referral IMG MAMMO PROCEDURES Final Resul t [facility] documented in this encounter Visit Diagnoses Not on filedocumented in this encounter Care Teams Shirt Creaser Relationship Specialty Start Date End Date Cachorro Garcia MD [address] [place] [address] PCP - General 12/07/16 06/11/21 documented as of this encounter
--- OUTSIDE RECORDS SUMMARY | 2024-10-16 02:18 | XMS_ITS | Encounter Summary ---
Author Organization [facility] Healthcare Address [address] [place] [address] Care Team Providers Care Cementing Bulk Material Operator Name Role Phone Cachorro Garcia MD Primary Care Provider [phone] Reason for Visit * Diagnostic Imaging (Routine) - Closed Specialty Diagnoses / Procedures Referred By Leti rice Referred To Contact Procedures Breast Imaging Screening Outside Reference Referral, Self Referral ID Status Reason Start Date Expiration Date Visits Re quested Visits Authorized [id number] Closed 08/20/2022 09/19/2023 1 1 Encounter Details Date Type Department Care Team (Late st Contact Info) Description 04/23/2020 Hospital Encounter [facility] [address] [place] [id number] Social History Tobacco Use Types Packs/Day Years [...] on file Legal Sex Female 3:58 AM RESOURCE MANAGER FORESTER Gender Identity Not on file Sexual Orientation [...] CDT) Impressions [facility] - 08/20/2022 11:27 AM RESOURCE MANAGER FORESTER These images are for Reference purposes only and have not been reviewed by [facility]. There will be no report generated by a [facility]iologist. Narrative [facility] - 08/20/2022 11:27 AM RESOURCE MANAGER FORESTER EXAMINATION: Images For Reference Purposes Only us Self Referral IMG MAMMO PROCEDURES Final Resul t [facility] documented in this encounter Visit Diagnoses Not on filedocumented in this encounter Care Teams Cementing Bulk Material Operator Relationship Specialty Start Date End Date Cachorro Garcia MD [address] [place] [address] PCP - General 12/07/16 06/11/21 documented as of this encounter
[2024-10-16 02:29] LABS: Troponin I 0.233 ng/mL (0.000-0.034)
[2024-10-16] MEDS: NITROGLYCERIN SL 0.4 MG TABLET SUBLINGUAL (02:57)
[2024-10-16] MEDS: MORPHINE SULFATE (*CRX) 4 MG/ML INJ IV PUSH (03:11)
--- NOTE | 2024-10-16 03:14 | PC.NURSE ---
first nitroglycerin given at 0255, pt rates chest pain 8/10. second nitro given at 0300, pt rates chest pain 5/10. third nitro given at 0305, pt rates pain 8/10 and is feeling nauseous. EDP made aware.
[2024-10-16 03:15] LABS: Prothrombin Time 14.1 Seconds (11.1-14.7)
[2024-10-16 03:16] LABS: Partial Thromboplastin Time 32.1 Seconds (22.3-36.8)
[2024-10-16] MEDS: ONDANSETRON INJ 4 MG/2 ML VIAL IV PUSH ×2 (03:30→21:22)
[2024-10-16] MEDS: SODIUM CHLORIDE 0.9% IV 1,000 ML 999 ML IV CONT (03:30)
--- NOTE | 2024-10-16 03:40 | ED_ITS ---
HPI - General Adult General Chief complaint: Chest Pain Stated complaint: chest pain Time Seen by Provider: 10/16/24 02:03 History of Present Illness HPI narrative: Is a 3-year-old female who presents emergency department chief complaint of left-sided chest pain patient reports that around midnight 15 the patient started having pain in left shoulder and had pain radiated to her back patient states that several episodes last around 10 minutes. The patient reports she had nausea and getting diaphoretic. The patient reports she has prior history of bradycardia Related Data Home Medications ?Medication ?Instructions ?Recorded ?Confirmed ?Last Taken ?Type cholecalciferol (vitamin D3) 50 100 mcg PO BID 02/13/20 09/29/21 10/06/20 History mcg (2,000 unit) capsule glucagon 1 mg injection kit 1 mg .Route PRN PRN Hyperglycemia 02/27/20 09/29/21 Unknown History insulin NPH isoph U-100 human 100 See Rx Instructions .Route .COMPLEX 02/27/20 09/29/21 Unknown History unit/mL subcutaneous suspension (Novolin N NPH U-100 Insulin isophane) insulin aspart U-100 100 unit/mL 36.95 unit subcut DAILY 02/27/20 09/29/21 10/10/20 History subcutaneous solution (Novolog U-100 Insulin aspart) Lactobacillus acidophilus 10 10,000 mmu cells PO DAILY 09/16/20 09/29/21 10/06/20 History billion cell capsule (Probiotic) liraglutide 0.6 mg/0.1 mL (18 mg/3 See Rx Instructions subcut .COMPLEX 09/16/20 09/29/21 10/09/20 History mL) subcutaneous pen injector (Victoza 2-Khadar) multivitamin (Daily Multi-Vitamin 1 tablet PO DAILY 09/16/20 09/29/21 10/06/20 History tablet) omega-3 fatty acids 100 mg 100 mg PO DAILY 09/16/20 09/29/21 10/06/20 History chewable tablet vitamin B complex (B 1 tablet PO DAILY 09/16/20 09/29/21 10/06/20 History Complex-Vitamin B12 tablet) Allergies Allergy/AdvReac Type Severity Reaction Status Date / Time povidone-iodine (From AdvReac Intermediate BAD RASH Verified 10/16/24 01:41 Betadine) soap (From Betadine) AdvReac Intermediate BAD RASH Verified 10/16/24 01:41 erythromycin base AdvReac Mild Nausea Verified 10/16/24 01:41 meperidine (From Demerol) AdvReac Mild Nausea and Verified 10/16/24 01:41 Vomiting Review of Systems 2 Review of Systems: A 10 system review of systems was completed on the patient and is negative except for what is stated in the HPI. Nursing and ancillary documentation was reviewed. [facility] Past Medical History Medical History DM2 (diabetes mellitus, type 2) Macular degeneration Diabetic retinopathy Obesity Lumbar radiculopathy Acute seasonal allergic rhinitis DM w/o complication type II, uncontrolled Essential (primary) hypertension Gastro-esophageal reflux disease without esophagitis Hereditary and idiopathic neuropathy, unspecified Major depressive disorder, single episode, unspecified Symptomatic menopausal or female climacteric states Mixed hyperlipidemia History of nummular eczema Other specified diabetes mellitus with diabetic neuropathy, unspecified Primary central sleep apnea Restless legs syndrome Type 2 diabetes mellitus without complications Benign essential hypertension with target blood pressure below 140/90 Organic sleep apnea, unspecified Vitamin D deficiency, unspecified Surgical History Surgical History S/P total knee arthroplasty On the left History of left knee surgery (~2009) History of cholecystectomy (~1989) History of hysterectomy (~1983) Family History Family History Grandparent Diabetes mellitus Family history of kidney disease Father Hypertension Family history of coronary artery disease Family history of elevated blood lipids Family history of cardiovascular disease Unknown Arthritis Parkinsons Other Acute myocardial infarction Social History Social History Social History: She is a retired high school nurse. She lives with her who is a durable power prosecuting attorney for healthcare. The patient desires to be a full code. She has 4 children. She is a lifelong nonsmoker. rarely drinks. She does not use any marijuana or illicit drugs. Smoking status: Never smoker Additional smoking assessment comments: DENIES ANY FORM OF TOBACCO USE Alcohol intake: never Alcohol use details: ONE DRINK PER MONTH Substance use: never Living arrangements: with family Gender identity (if verbalized by the patient): Female Spiritual care concerns: No Exam 2 Narrative: GENERAL: Well-appearing, well-nourished, and in no acute distress. HEAD: Normocephalic, atraumatic. EYES: PERRLA and EOMI. ENT: Nares clear, no rhinorrhea or epistaxis. Mucous membranes moist. NECK: Supple. CHEST: Clear to auscultation. No respiratory distress. HEART: Regular rate and rhythm. No murmur heard. Normal peripheral pulses. ABDOMEN: Soft, nontender, nondistended, normal active bowel sounds. EXTREMITIES: Normal range of motion. No edema. SKIN: Warm, dry, no rash. NEURO: No focal deficits. Alert and oriented x3. PSYCH: Normal mood and affect. Course Vital Signs Vital signs: Vital Signs Temperature 37.2 C 10/16/24 01:45 Pulse Rate 55 L 10/16/24 01:45 Respiratory Rate 14 10/16/24 01:45 Blood Pressure 177/78 H 10/16/24 01:45 Pulse Oximetry 100 10/16/24 01:45 Oxygen Delivery Room Air 10/16/24 01:45 Temperature 37.2 C 10/16/24 01:45 Pulse Rate 54 L 10/16/24 03:39 Respiratory Rate 14 10/16/24 03:39 Blood Pressure 112/59 L 10/16/24 03:39 Pulse Oximetry 99 10/16/24 03:39 Oxygen Delivery Room Air 10/16/24 01:55 Medical Decision Making MDM Narrative Medical decision making narrative: EKG showed atrial fibrillation with a left bundle-branch block Patient's pain was improved in the emergency department the patient started on heparin drip as she had a positive troponin Vital Signs Vital Signs: Vital Signs Temperature 37.2 C 10/16/24 01:45 Pulse Rate 55 L 10/16/24 01:45 Respiratory Rate 14 10/16/24 01:45 Blood Pressure 177/78 H 10/16/24 01:45 Pulse Oximetry 100 10/16/24 01:45 Oxygen Delivery Room Air 10/16/24 01:45 Temperature 37.2 C 10/16/24 01:45 Pulse Rate 54 L 10/16/24 03:39 Respiratory Rate 14 10/16/24 03:39 Blood Pressure 112/59 L 10/16/24 03:39 Pulse Oximetry 99 10/16/24 03:39 Oxygen Delivery Room Air 10/16/24 01:55 Lab Data 10/16/24 01:52 10/16/24 01:52 Labs: Lab Results 10/16/24 Range/Units 01:52 WBC 8.2 (4.5-10.0) K/mm3 RBC 4.28 (4.2-5.4) M/mm3 Hgb 13.6 D (12.0-15.0) g/dL Hct 39.8 (37.0-47.0) % MCV 93.0 (80-100) fl MCH 31.8 (26-34) pg MCHC 34.2 (32-36) g/dl RDW 13.5 (11.5-14.5) % Plt Count 201 (150-375) k/mm3 MPV 9.3 (7.4-10.4) fl Immature Gran % (Auto) 0.5 (0-0.5) % Neut % (Auto) 52.8 (45.5-73.1) % Lymph % (Auto) 35.0 (18.3-44.2) % [place] % (Auto) 6.9 (2.6-8.5) % Eos % (Auto) 4.2 (0-4.4) % Baso % (Auto) 0.6 (0.2-1.2) % Lymph # (Auto) 2.85 (0.9-3.2) K/mm3 [place] # (Auto) 0.6 (0.1-0.6) K/mm3 Eos # (Auto) 0.3 (0-0.3) K/mm3 Baso # (Auto) 0.1 (0.0-0.1) K/mm3 Abs Immat Gran (auto) 0.04 H (0.00-0.031) K/mm3 Absolute Neuts (auto) 4.3 (1.3-6.7) K/mm3 Absolute Nucleated RBC 0.000 (0.0-0.012) K/mm3 Nucleated RBC % 0.0 (0.0-0.2) % PT 14.1 (11.1-14.7) Seconds INR 1.0 APTT 32.1 (22.3-36.8) Seconds Sodium 140 (137-145) mmol/L Potassium 4.0 (3.4-5.0) mmol/L Chloride 104 (98-107) mmol/L Carbon Dioxide 23 (22-30) mmol/L Anion Gap 13 H (4-12) mmol/L BUN 13 (7-17) mg/dL Creatinine 0.73 (0.7-1.0) mg/dL Estim Creat Clear Calc 58 ml/min Estimated GFR > 60 (59 - ) Glucose 173 H (65-110) mg/dL Calcium 9.1 (8.4-10.2) mg/dL Total Bilirubin 0.9 (0.2-1.3) mg/dL AST 61 H (14-36) U/L ALT 39 H (6-35) U/L Alkaline Phosphatase 106 (38-126) U/L Troponin I 0.233 H* (0.000-0.034) ng/mL Total Protein 8.0 (6.3-8.2) g/dL Albumin 4.1 (3.5-5.1) g/dL Lipase 74 (23-300) U/L Discharge Plan Discharge Clinical Impression: Non-ST elevation [place] (NSTEMI) Patient Disposition: Still a Patient Condition: Stable Patient Language: Polish Prescriptions: No Action cholecalciferol (vitamin D3) 50 mcg (2,000 unit) capsule 100 mcg PO BID glucagon 1 mg kit 1 mg .Route PRN PRN (Reason: Hyperglycemia) Rx Instructions: when needed insulin aspart U-100 [Novolog U-100 Insulin aspart] 100 unit/mL solution 36.95 unit SUB-Q DAILY Rx Instructions: VIA PUMP 24 HOURS BASAL RATE Novolin N NPH U-100 Insulin 100 unit/mL suspension See Rx Instructions .ROUTE .COMPLEX Rx Instructions: inject 13 units under the skin every 8 hrs when off insulin pump: TDD 39 units vitamin B complex [B Complex-Vitamin B12] Tablet 1 tablet PO DAILY Victoza 2-Khadar 0.6 mg/0.1 mL (18 mg/3 mL) pen injector See Rx Instructions subcut .COMPLEX Rx Instructions: inject 0.6mg subcutaneously once daily x 7 days; then 1.2mg daily, not to exceed 1.8mg/day subcut multivitamin [Daily Multi-Vitamin] Tablet 1 tablet PO DAILY omega-3 fatty acids 100 mg tablet,chewable 100 mg PO DAILY Probiotic 10 billion cell Capsule 10,000 mmu cells PO DAILY tizanidine 4 mg tablet 4 mg PO TID PRN (Reason: muscle spasticity) Qty: 90 11RF losartan 50 mg tablet See Rx Instructions .ROUTE .COMPLEX Qty: 90 3RF Dose Instruction: Take 1 tablet by mouth once daily Rx Instructions: Take 1 tablet by mouth once daily furosemide 20 mg tablet See Rx Instructions .ROUTE .COMPLEX Qty: 90 3RF Dose Instruction: Take 1 tablet by mouth once daily Rx Instructions: Take 1 tablet by mouth once daily atorvastatin 10 mg tablet See Rx Instructions .ROUTE .COMPLEX Qty: 90 3RF Dose Instruction: Take 1 tablet by mouth once daily Rx Instructions: Take 1 tablet by mouth once daily Follow-up/Referrals: Wood,Joshua Flores MD [Primary Care Provider] - Time of Disposition: 03:43
[2024-10-16] MEDS: HEPARIN SOD/D5W 100 UNITS/ML 25,000 UNITS/250 ML BAG 8 UNITS IV CONT (04:03)
[2024-10-16] MEDS: HEPARIN SODIUM 5,000 UNITS/ML VIAL 4000 UNITS IV PUSH (04:03)
[2024-10-16] MEDS: NITROGLYCERIN OINTMENT 1 INCH DOSE TRANSDERM (04:31)
--- NOTE | 2024-10-16 05:11 | ECG_ITS ---
Test Date: 2024-10-16 05:15:59 Measurements Intervals [place] Rate: 42 P: 0 AL: 0 QRS: -34 QRSD: 157 T: 25 QT: 555 QTc: 465 Interpretive Statements SINUS BRADYCARDIA WITH COMPLETE HEART BLOCK MARKED LEFT AXIS DEVIATION [QRS AXIS < -30] LEFT BUNDLE BRANCH BLOCK [120+ ms QRS DURATION, 80+ ms Q/S IN V1/V2, 85+ ms R IN I/aVL/V5/V6] Compared to ECG 10/16/2024 01:50:21 NO SIGNIFICANT CHANGES Electronically Signed On 10-17-2024 15:47:20 [employer] by Saad Ovalle M.D.
--- NOTE | 2024-10-16 05:45 | PC.NURSE ---
Dr Durant paged for 3 hour troponin result of 2.1. Awaiting call back
[2024-10-16 09:10] LABS: Glucose Point of Care 134 mg/dl (65-105)
--- NOTE | 2024-10-16 09:53 | ECG_ITS ---
Test Date: 2024-10-16 10:00:44 Measurements Intervals [place] Rate: 38 P: 0 MT: 0 QRS: -40 QRSD: 152 T: 30 QT: 575 QTc: 459 Interpretive Statements SINUS BRADYCARDIA WITH COMPLETE HEART BLOCK MARKED LEFT AXIS DEVIATION [QRS AXIS < -30] LEFT BUNDLE BRANCH BLOCK [120+ ms QRS DURATION, 80+ ms Q/S IN V1/V2, 85+ ms R IN I/aVL/V5/V6] Compared to ECG 10/16/2024 05:15:59 NO SIGNIFICANT CHANGES Electronically Signed On 10-17-2024 15:52:25 [employer] by Saad Ovalle M.D.
[2024-10-16 10:09] LABS: Basophils Percent Auto 0.5 % (0.2-1.2); Eosinophils Absolute Auto 0.1 K/mm3 (0-0.3); Hematocrit 36.6 % (37.0-47.0); Immature Granulocyte Absolute 0.04 K/mm3 (0.00-0.031); Immature Granulocyte Percent A 0.5 % (0-0.5); Lymphocytes Absolute Auto 1.94 K/mm3 (0.9-3.2); Lymphocytes Percent Auto 22.1 % (18.3-44.2); Mean Corpuscular HGB Conc 32.8 g/dl (32-36); Mean Corpuscular Volume 94.6 fl (80-100); Mean Platelet Volume 9.1 fl (7.4-10.4); Monocytes Absolute Auto 0.4 K/mm3 (0.1-0.6); Neutrophils Absolute Auto 6.2 K/mm3 (1.3-6.7); Neutrophils Percent Auto 70.9 % (45.5-73.1); Platelet Count Result 172 k/mm3 (150-375); Red Blood Count 3.87 M/mm3 (4.2-5.4); Red Cell Distribution Width 13.5 % (11.5-14.5); White Blood Count 8.8 K/mm3 (4.5-10.0)
[2024-10-16 10:21] LABS: INR 1.2; Prothrombin Time 15.5 Seconds (11.1-14.7)
[2024-10-16 10:24] LABS: Partial Thromboplastin Time 139.3 Seconds (22.3-36.8)
--- NOTE | 2024-10-16 11:25 | ADMGEN ---
This patient, Melanie Hutton, was admitted to IMU Room 210-01 on 10/16/24 at 0800. Patient/family oriented to hospital policies and general routines including ID bracelet, bed and alarms, visiting hours, pain management, procedures, bathroom and other care routines, personal items, smoking policy, room service/diet, and visiting hours. Information on how to activate the Rapid Response Team has been discussed. Patient/Family are encouraged to report perceived risks to care and to ask questions if they do not understand what they are told or what they should do.
--- NOTE | 2024-10-16 12:17 | P.CONCA_ITS ---
Assessment and Plan Assessment and plan (1) Non-ST elevation [place] (NSTEMI): Code(s): I21.4 - Non-ST elevation (NSTEMI) myocardial infarction Status: Acute (2) Essential (primary) hypertension: Code(s): I10 - Essential (primary) hypertension Status: Chronic (3) Mixed hyperlipidemia: Code(s): E78.2 - Mixed hyperlipidemia Status: Chronic (4) Complete heart block: Code(s): I44.2 - Atrioventricular block, complete Status: Acute Plan 83-year-old woman with diabetes, hypertension, and hyperlipidemia who presented with chest discomfort Sinus rhythm with complete AV block -given her clinical presentation, we will define her coronary anatomy as well as place a temporary venous pacer -will obtain transthoracic echocardiogram to determine type of permanent device -escape rhythm is most likely junctional with baseline left bundle-branch block Non ST-elevation [place] -risk, benefits, alternatives have been explained to the patient as well as the indication of cardiac catheterization -patient agrees with plan and will proceed with cardiac catheterization Hyperlipidemia -can resume her home dose statin medications Hypertension -recommend to allow permissive hypertension in the setting of complete heart block History of Present Illness History of Present Illness Consult date/time: 10/16/24 12:17 Requesting physician: Ronen Dudley MD Reason For Visit: Chest pain, NSTEMI Narrative: 83-year-old woman with diabetes, hypertension, and hyperlipidemia who presented with chest discomfort. For the past two months, she has been having significant fatigue as well as lightheadedness. She has been also experiencing chest discomfort as well as shortness of breath with physical exertion. She lives at home and is able to take care of her activities of daily living as well as doing her own grocery shopping however she does feel that these activities have been limited by chest discomfort, shortness of breath, fatigue, as well as lightheadedness. Yesterday evening she felt the chest discomfort significantly worsened prompting her to come to the emergency room. She was at home sleeping when the chest discomfort that is left-sided that is some pressure as well as sharp in nature that woke her up. Review of Systems 2 Cardiovascular: Cardiovascular: Reports as per HPI Respiratory: Respiratory: Reports as per HPI [facility] Past Medical History Medical History DM2 (diabetes mellitus, type 2) Macular degeneration Diabetic retinopathy Obesity Lumbar radiculopathy Acute seasonal allergic rhinitis DM w/o complication type II, uncontrolled Essential (primary) hypertension Gastro-esophageal reflux disease without esophagitis Hereditary and idiopathic neuropathy, unspecified Major depressive disorder, single episode, unspecified Symptomatic menopausal or female climacteric states Mixed hyperlipidemia History of nummular eczema Other specified diabetes mellitus with diabetic neuropathy, unspecified Primary central sleep apnea Restless legs syndrome Type 2 diabetes mellitus without complications Benign essential hypertension with target blood pressure below 140/90 Organic sleep apnea, unspecified Vitamin D deficiency, unspecified Surgical History Surgical History S/P total knee arthroplasty On the left History of left knee surgery (~2009) History of cholecystectomy (~1989) History of hysterectomy (~1983) Family History Family History Grandparent Diabetes mellitus Family history of kidney disease Father Hypertension Family history of coronary artery disease Family history of elevated blood lipids Family history of cardiovascular disease Unknown Arthritis Parkinsons Other Acute myocardial infarction Social History Social History Social History: She is a retired high school nurse. She lives with her who is a durable power transactional attorney for healthcare. The patient desires to be a full code. She has 4 children. She is a lifelong nonsmoker. rarely drinks. She does not use any marijuana or illicit drugs. Smoking status: Never smoker Additional smoking assessment comments: DENIES ANY FORM OF TOBACCO USE Alcohol intake: never Alcohol use details: ONE DRINK PER MONTH Substance use: never Living arrangements: with family Gender identity (if verbalized by the patient): Female Spiritual care concerns: No Meds Home Medications and Allergies Home Medications ?Medication ?Instructions ?Recorded ?Confirmed ?Type cholecalciferol (vitamin D3) 50 100 mcg PO BID 02/13/20 09/29/21 History mcg (2,000 unit) capsule glucagon 1 mg injection kit 1 mg .Route PRN PRN Hyperglycemia 02/27/20 09/29/21 History insulin NPH isoph U-100 human 100 See Rx Instructions .Route .COMPLEX 02/27/20 09/29/21 History unit/mL subcutaneous suspension (Novolin N NPH U-100 Insulin isophane) insulin aspart U-100 100 unit/mL 36.95 unit subcut DAILY 02/27/20 09/29/21 History subcutaneous solution (Novolog U-100 Insulin aspart) tizanidine 4 mg tablet 4 mg PO TID PRN muscle spasticity 05/27/20 09/29/21 Rx #90 tabs Lactobacillus acidophilus 10 10,000 mmu cells PO DAILY 09/16/20 09/29/21 History billion cell capsule (Probiotic) liraglutide 0.6 mg/0.1 mL (18 mg/3 See Rx Instructions subcut .COMPLEX 09/16/20 09/29/21 History mL) subcutaneous pen injector (Victoza 2-Khadar) multivitamin (Daily Multi-Vitamin 1 tablet PO DAILY 09/16/20 09/29/21 History tablet) omega-3 fatty acids 100 mg 100 mg PO DAILY 09/16/20 09/29/21 History chewable tablet vitamin B complex (B 1 tablet PO DAILY 09/16/20 09/29/21 History Complex-Vitamin B12 tablet) losartan 50 mg tablet See Rx Instructions .Route 11/04/20 09/29/21 Rx .COMPLEX #90 tabs furosemide 20 mg tablet See Rx Instructions .Route 11/26/20 09/29/21 Rx .COMPLEX #90 tabs atorvastatin 10 mg tablet See Rx Instructions .Route 05/28/21 09/29/21 Rx .COMPLEX #90 tabs Allergies Allergy/AdvReac Type Severity Reaction Status Date / Time povidone-iodine (From AdvReac Intermediate BAD RASH Verified 10/16/24 01:41 Betadine) soap (From Betadine) AdvReac Intermediate BAD RASH Verified 10/16/24 01:41 erythromycin base AdvReac Mild Nausea Verified 10/16/24 01:41 meperidine (From Demerol) AdvReac Mild Nausea and Verified 10/16/24 01:41 Vomiting Vital Signs Vital Signs - 24 hr 10/16/24 01:45 10/16/24 01:55 10/16/24 03:39 Temperature 37.2 C Pulse Rate 55 L 54 L Respiratory Rate 14 14 Blood Pressure 177/78 H 112/59 L Pulse Oximetry 100 100 99 Oxygen Delivery Room Air Room Air Oxygen Flow Rate 10/16/24 06:54 10/16/24 08:00 Temperature Pulse Rate 45 L Respiratory Rate 15 Blood Pressure 108/51 L Pulse Oximetry 99 99 Oxygen Delivery Nasal Cannula Oxygen Flow Rate 2 Exam 2 Const: General: comfortable Eyes: EOM: EOMs intact bilaterally Neck: Neck: no JVD Resp: Effort & Inspection: normal respiratory effort Auscultation: crackles Cardio: Rate: bradycardic Rhythm: regular rhythm Neuro: Speech: normal speech Extrem: General: no pedal edema Results Labs and Meds 10/16/24 09:59 10/16/24 01:52 Lab results: Cardiac Enzymes 10/16/24 10/16/24 10/16/24 Range/Units 01:52 05:15 07:51 AST 61 H (14-36) U/L Troponin I 0.233 H* 2.100 H* D 2.120 H* (0.000-0.034) ng/mL Coagulation 10/16/24 10/16/24 Range/Units 01:52 09:59 PT 14.1 15.5 H (11.1-14.7) Seconds APTT 32.1 139.3 H (22.3-36.8) Seconds CBC 10/16/24 10/16/24 Range/Units 01:52 09:59 WBC 8.2 8.8 (4.5-10.0) K/mm3 RBC 4.28 3.87 L (4.2-5.4) M/mm3 Hgb 13.6 D 12.0 (12.0-15.0) g/dL Hct 39.8 36.6 L (37.0-47.0) % Plt Count 201 172 (150-375) k/mm3 Lymph # (Auto) 2.85 1.94 (0.9-3.2) K/mm3 [place] # (Auto) 0.6 0.4 (0.1-0.6) K/mm3 Eos # (Auto) 0.3 0.1 (0-0.3) K/mm3 Baso # (Auto) 0.1 0.0 (0.0-0.1) K/mm3 Comprehensive Metabolic Panel 10/16/24 Range/Units 01:52 Sodium 140 (137-145) mmol/L Potassium 4.0 (3.4-5.0) mmol/L Chloride 104 (98-107) mmol/L Carbon Dioxide 23 (22-30) mmol/L BUN 13 (7-17) mg/dL Creatinine 0.73 (0.7-1.0) mg/dL Glucose 173 H (65-110) mg/dL Calcium 9.1 (8.4-10.2) mg/dL AST 61 H (14-36) U/L ALT 39 H (6-35) U/L Alkaline Phosphatase 106 (38-126) U/L Total Protein 8.0 (6.3-8.2) g/dL Albumin 4.1 (3.5-5.1) g/dL Intake and Output 10/15/24 10/16/24 10/16/24 23:59 07:59 15:59 Intake Total 1000 Balance 1000 Intake: IV 1000 Sodium Chloride 0.9% IV 1,000 1000 ml @ 999 mls/hr IV CONT .Q1H1M [facility] Rx#:[id number] Patient Weight 10/16/24 23:59 Weight 86.9 kg
--- NOTE | 2024-10-16 12:26 | WPDMODSED ---
Moderate Sedation Note-Pt Data Patient Data Allergies Allergy/AdvReac Type Severity Reaction Status Date / Time povidone-iodine (From AdvReac Intermediate BAD RASH Verified 10/16/24 12:26 Betadine) soap (From Betadine) AdvReac Intermediate BAD RASH Verified 10/16/24 12:26 erythromycin base AdvReac Mild Nausea Verified 10/16/24 12:26 meperidine (From Demerol) AdvReac Mild Nausea and Verified 10/16/24 12:26 Vomiting Home Medications ?Medication ?Instructions ?Recorded ?Confirmed ?Type cholecalciferol (vitamin D3) 50 100 mcg PO BID 02/13/20 09/29/21 History mcg (2,000 unit) capsule glucagon 1 mg injection kit 1 mg .Route PRN PRN Hyperglycemia 02/27/20 09/29/21 History insulin NPH isoph U-100 human 100 See Rx Instructions .Route .COMPLEX 02/27/20 09/29/21 History unit/mL subcutaneous suspension (Novolin N NPH U-100 Insulin isophane) insulin aspart U-100 100 unit/mL 36.95 unit subcut DAILY 02/27/20 09/29/21 History subcutaneous solution (Novolog U-100 Insulin aspart) tizanidine 4 mg tablet 4 mg PO TID PRN muscle spasticity 05/27/20 09/29/21 Rx #90 tabs Lactobacillus acidophilus 10 10,000 mmu cells PO DAILY 09/16/20 09/29/21 History billion cell capsule (Probiotic) liraglutide 0.6 mg/0.1 mL (18 mg/3 See Rx Instructions subcut .COMPLEX 09/16/20 09/29/21 History mL) subcutaneous pen injector (Victoza 2-Khadar) multivitamin (Daily Multi-Vitamin 1 tablet PO DAILY 09/16/20 09/29/21 History tablet) omega-3 fatty acids 100 mg 100 mg PO DAILY 09/16/20 09/29/21 History chewable tablet vitamin B complex (B 1 tablet PO DAILY 09/16/20 09/29/21 History Complex-Vitamin B12 tablet) losartan 50 mg tablet See Rx Instructions .Route 11/04/20 09/29/21 Rx .COMPLEX #90 tabs furosemide 20 mg tablet See Rx Instructions .Route 11/26/20 09/29/21 Rx .COMPLEX #90 tabs atorvastatin 10 mg tablet See Rx Instructions .Route 05/28/21 09/29/21 Rx .COMPLEX #90 tabs Current Medications: Active Medications Acetaminophen (Acetaminophen 325 Mg Tablet) 650 mg PO Q4H PRN PRN Reason: Mild Pain (1-3) or Fever Aspirin (Aspirin 81 Mg Chewable Tablet) 81 mg PO DAILY@0800 [facility] Heparin Sodium (Porcine) (Heparin Sodium 5,000 Units/Ml Vial) 4,000 units IV PUSH PRN PRN PRN Reason: aPTT less than 55 seconds Heparin Sodium (Porcine) (Heparin Sodium 5,000 Units/Ml Vial) 3,000 units IV PUSH PRN PRN PRN Reason: aPTT 55 - 70 seconds Heparin Sodium/Dextrose (Heparin Sodium/D5w 100 Units/Ml) 25,000 units in 250 mls @ 8 mls/hr IV CONT .Q24H GAVIN; Protocol Last Admin: 10/16/24 04:03 Dose: 800 units/hr, 8 mls/hr Morphine Sulfate (Morphine Sulfate (*Crx) 2 Mg/Ml Inj) 2 mg IV PUSH Q2H PRN PRN Reason: Pain Rated 7-10 Ondansetron HCl (Ondansetron Inj 4 Mg/2 Ml Vial) 4 mg IV PUSH Q4H PRN PRN Reason: Nausea Sedation/Anesthesia: No previous sedation/anesthesia problems (including family history). [facility] Past Medical History Medical History DM2 (diabetes mellitus, type 2) Macular degeneration Diabetic retinopathy Obesity Lumbar radiculopathy Acute seasonal allergic rhinitis DM w/o complication type II, uncontrolled Essential (primary) hypertension Gastro-esophageal reflux disease without esophagitis Hereditary and idiopathic neuropathy, unspecified Major depressive disorder, single episode, unspecified Symptomatic menopausal or female climacteric states Mixed hyperlipidemia History of nummular eczema Other specified diabetes mellitus with diabetic neuropathy, unspecified Primary central sleep apnea Restless legs syndrome Type 2 diabetes mellitus without complications Benign essential hypertension with target blood pressure below 140/90 Organic sleep apnea, unspecified Vitamin D deficiency, unspecified Surgical History Surgical History S/P total knee arthroplasty On the left History of left knee surgery (~2009) History of cholecystectomy (~1989) History of hysterectomy (~1983) Family History Family History Grandparent Diabetes mellitus Family history of kidney disease Father Hypertension Family history of coronary artery disease Family history of elevated blood lipids Family history of cardiovascular disease Unknown Arthritis Parkinsons Other Acute myocardial infarction Social History Social History Social History: She is a retired high school nurse. She lives with her who is a durable power structural steel worker apprentice for healthcare. The patient desires to be a full code. She has 4 children. She is a lifelong nonsmoker. rarely drinks. She does not use any marijuana or illicit drugs. Smoking status: Never smoker Additional smoking assessment comments: DENIES ANY FORM OF TOBACCO USE Alcohol intake: never Alcohol use details: ONE DRINK PER MONTH Substance use: never Living arrangements: with family Gender identity (if verbalized by the patient): Female Spiritual care concerns: No Mod Sed Physical Exam Physical Exam Pre Procedural Exam: Variation: Lungs (crackles), Heart Rate (CHB) and Heart Rhythm (CHB) Hours since solid foods: 12 Hours since liquid intake: 12 Mallampati Classification: class II Internal Medicine - PN: Obj Da Vital Signs Vital Signs: Vital Signs - 24 hr 10/16/24 01:45 10/16/24 01:55 10/16/24 03:39 Temperature 37.2 C Pulse Rate 55 L 54 L Respiratory Rate 14 14 Blood Pressure 177/78 H 112/59 L Pulse Oximetry 100 100 99 Oxygen Delivery Room Air Room Air Oxygen Flow Rate 10/16/24 06:54 10/16/24 08:00 Temperature Pulse Rate 45 L Respiratory Rate 15 Blood Pressure 108/51 L Pulse Oximetry 99 99 Oxygen Delivery Nasal Cannula Oxygen Flow Rate 2 Intake/Output Intake/Output: Intake & Output 10/13/24 10/14/24 10/15/24 10/16/24 23:59 23:59 23:59 23:59 Intake Total 1000 Balance 1000 Meds/Results Medications: Active Medications Generic Name Dose Route Start Last Admin Trade Name Freq PRN Reason Stop Dose Admin Acetaminophen 650 mg 10/16/24 03:43 Acetaminophen 325 Mg Tablet PO Q4H PRN Mild Pain (1-3) or Fever Aspirin 81 mg 10/16/24 12:00 Aspirin 81 Mg Chewable Tablet PO DAILY@0800 GAVIN Heparin Sodium (Porcine) 4,000 units 10/16/24 03:27 Heparin Sodium 5,000 Units/Ml Vial IV PUSH PRN PRN aPTT less than 55 seconds Heparin Sodium (Porcine) 3,000 units 10/16/24 03:27 Heparin Sodium 5,000 Units/Ml Vial IV PUSH PRN PRN aPTT 55 - 70 seconds Heparin Sodium/Dextrose 25,000 units in 250 mls @ 8 mls/hr 10/16/24 03:30 10/16/24 04:03 Heparin Sodium/D5w 100 Units/Ml IV CONT 800 units/hr .Q24H GAVIN 8 mls/hr Administration Protocol 800 UNITS/HR Morphine Sulfate 2 mg 10/16/24 03:43 Morphine Sulfate (*Crx) 2 Mg/Ml Inj IV PUSH Q2H PRN Pain Rated 7-10 Ondansetron HCl 4 mg 10/16/24 03:43 Ondansetron Inj 4 Mg/2 Ml Vial IV PUSH Q4H PRN Nausea Radiology Results: ITS Impressions Chest X-Ray 10/16/24 07:36 Impression: No definite acute abnormality. COPD and/or bibasilar chronic interstitial change. Labs 10/16/24 09:59 10/16/24 01:52 Labs: Laboratory Results - last 24 hr 10/16/24 10/16/24 10/16/24 01:52 05:15 07:51 WBC 8.2 RBC 4.28 Hgb 13.6 D Hct 39.8 MCV 93.0 MCH 31.8 MCHC 34.2 RDW 13.5 Plt Count 201 MPV 9.3 Immature Gran % (Auto) 0.5 Neut % (Auto) 52.8 Lymph % (Auto) 35.0 [place] % (Auto) 6.9 Eos % (Auto) 4.2 Baso % (Auto) 0.6 Lymph # (Auto) 2.85 [place] # (Auto) 0.6 Eos # (Auto) 0.3 Baso # (Auto) 0.1 Abs Immat Gran (auto) 0.04 H Absolute Neuts (auto) 4.3 Absolute Nucleated RBC 0.000 Nucleated RBC % 0.0 PT 14.1 INR 1.0 APTT 32.1 Sodium 140 Potassium 4.0 Chloride 104 Carbon Dioxide 23 Anion Gap 13 H BUN 13 Creatinine 0.73 Estim Creat Clear Calc 58 Estimated GFR > 60 Glucose 173 H POC Capillary Glucose Calcium 9.1 Total Bilirubin 0.9 AST 61 H ALT 39 H Alkaline Phosphatase 106 Troponin I 0.233 H* 2.100 H* D 2.120 H* Total Protein 8.0 Albumin 4.1 Lipase 74 10/16/24 10/16/24 09:08 09:59 WBC 8.8 RBC 3.87 L Hgb 12.0 Hct 36.6 L MCV 94.6 MCH 31.0 MCHC 32.8 RDW 13.5 Plt Count 172 MPV 9.1 Immature Gran % (Auto) 0.5 Neut % (Auto) 70.9 Lymph % (Auto) 22.1 [place] % (Auto) 5.0 Eos % (Auto) 1.0 Baso % (Auto) 0.5 Lymph # (Auto) 1.94 [place] # (Auto) 0.4 Eos # (Auto) 0.1 Baso # (Auto) 0.0 Abs Immat Gran (auto) 0.04 H Absolute Neuts (auto) 6.2 Absolute Nucleated RBC 0.000 Nucleated RBC % 0.0 PT 15.5 H INR 1.2 APTT 139.3 H Sodium Potassium Chloride Carbon Dioxide Anion Gap BUN Creatinine Estim Creat Clear Calc Estimated GFR Glucose POC Capillary Glucose 134 H Calcium Total Bilirubin AST ALT Alkaline Phosphatase Troponin I Total Protein Albumin Lipase ASA Classification/Sedation ASA Classification/Sedation ASA Class: III Emergent: Yes Risks: Risks, benefits and alternatives explained and patient/family accepted plan for sedation. Patient re-evaluated immediately prior to sedation.
--- NOTE | 2024-10-16 12:27 | WPDCARDPROC ---
Cardiac Cath Procedure Note Date of procedure:: 10/16/24 Performing physician:: CATHETERIZATION LABORATORY REPORT Procedure Date: 10/16/2024 Referring Physician: Dr. Dudley Anesthesia: Versed and Fentanyl were ordered and given in my presence at 1056, procedure ended at 1132. Supervision of nurse, Nara Lyons monitored moderate sedation with 2mg Versed and 50mcg Fentanyl was provided for 36 minutes. Pre-op Diagnosis: NSTEMI Sinus Rhythm with Complete Heart Block Post-op Diagnosis: NSTEMI Sinus Rhythm with Complete Heart Block Procedure(s): Left heart catheterization with coronary angiography iFR assessment of LAD Temporary transvenous pacer Access Site: Right common femoral artery and right femoral vein Brief History and Clinical Indications: 83-year-old woman with diabetes, hypertension, and hyperlipidemia who presented with chest discomfort who was found to have non ST elevation [place] as well as sinus rhythm with complete AV block who continued to have chest pain in setting of worsening bradycardia All risks, benefits and alternatives to left heart catheterization with or without percutaneous coronary intervention was discussed at length with the patient. Risk of complications including but not limited to bleeding, infection, arrhythmia, stroke, worsening kidney function, blood loss, groin hematoma, limb loss, emergency coronary artery bypass grafting, and even were discussed with the patient and all questions were answered. The patient understood and wished to proceed. Time out called, patient name, date of , medical record number, allergies, procedure performed, identify Ag Equipment Field Service Technician, patient and staff member concurred with accurate data, procedure carried on. Findings: LEFT HEART CATHETERIZATION FINDINGS: 1. Left main: The left main coronary artery is widely patent without any significant obstructive disease. 2. Left anterior descending: The LAD provides 3 diagonal branches. The LAD in its midbody between the first 2 septal branches have 50% stenosis. The diagonal branches are free of angiographic high-grade stenosis. 3. Left circumflex: The left circumflex artery and the main marginal branches have mild luminal irregularities without any significant obstructive angiographic disease. 4. Right coronary artery: The RCA has mild luminal irregularities without any significant obstructive angiographic disease. The RCA is the dominant vessel. 5. Left ventricle: A. End-diastolic pressure 32 mmHg. B. LV gram deferred. C. No significant gradient across aortic valve on catheter pullback. 6. Opening AO pressure 99/61 and closing AO pressure 123/61 Description of Procedure: Informed consent signed and placed in the chart. Patient transferred to manager laboratory room. Prepped and draped in usual sterile fashion. 2% lidocaine injected subcutaneously in right groin area. Right femoral vein was accessed using micropuncture technique under ultrasound guidance. 6FR sheath placed and a 5 Persian transvenous pacer was advanced into the right ventricle. Device setting was programmed to VVI with backup rate 50 beats per minute. Attention was then turned to the right common femoral artery which was accessed with a micro puncture kit under ultrasound as well as fluoroscopy guidance. The micropuncture cannula was exchanged for a 6F Sheath. 5F JL4 diagnostic catheter engaged Left Main Coronary Artery. JR4 guide catheter engaged Right Coronary Artery. Multiple orthogonal angiogram obtained and reviewed 5F Pigtail diagnostic catheter crossed aortic valve to obtain LVEDP, LV angiogram deferred. Given her elevated troponin as well as high-degree AV block, decision was made to interrogate the mid LAD lesion with an IFR wire. Heparin was used for anticoagulation (ACT maintained above 250) Patient loaded with heparin at 70 units/kg. 6F EBU 3.5 guide catheter was used to intubate the LMCA. 0.014 OmniWire coronary wire was passed in to the distal left main where it was normalized. The OmniWire was then advanced past the lesion by 1 cm and physiologic assessment was performed with resulting ratio of IFR 0.96 Coronary wire and guide-catheter were removed under fluoroscopy. Final angiography did not review any complications. Pre-procedure - ANAMIKA 3 flow Post-procedure - ANAMIKA 3 flow Assessment: Non ST-elevation NM possibly from demand ischemia in presence of high degree AVB Successful placement of transvenous temporary pacemaker for complete heart block Post Operative Condition: Stable No significant blood loss Disposition: ICU Plan: Continue aspirin 81 mg p.o. daily and high-intensity statin Obtain transthoracic echocardiogram to determine type of permanent pacemaker device Can discontinue heparin janis Monson Interventional Cardiology
--- NOTE | 2024-10-16 13:34 | P.CONIN_ITS ---
Assessment and Plan Assessment and plan (1) Complete heart block: Code(s): I44.2 - Atrioventricular block, complete Status: Acute Assessment and Plan: Patient with complete heart block status post transvenous pacemaker placed on 10/16/2024 by Cardiology -echocardiogram has been ordered, which will decide what can of pacemaker she needs to receive - -cardiology following the patient , pacemaker rate sedated 50 bpm, patient is pacemaker dependent at this time (2) Non-ST elevation [place] (NSTEMI): Code(s): I21.4 - Non-ST elevation (NSTEMI) myocardial infarction Status: Acute Assessment and Plan: Patient presented with chest pain, elevated troponins, no ST elevation on EKG -10/16: Coronary angiogram with no acute coronary artery disease and no intervention -continue aspirin, will start atorvastatin that she takes at home -cardiology following the patient (3) DM2 (diabetes mellitus, type 2): Code(s): E11.9 - Type 2 diabetes mellitus without complications Status: Chronic Assessment and Plan: Since patient is not eating much will hold off her insulin pump -continue Accu-Cheks and sliding scale insulin for now -will restart gabapentin for diabetic neuropathy (4) Mixed hyperlipidemia: Code(s): E78.2 - Mixed hyperlipidemia Status: Chronic Assessment and Plan: Atorvastatin that she takes at home Plan DVT prophylaxis: Status post cardiac catheterization Stress ulcer prophylaxis: Not indicated Nutrition: Heart healthy diet Code Status: Full code Critical Care Time Spent: 49 minutes Due to a high probability of clinically significant, life threatening deterioration, the patient required my highest level of preparedness to intervene emergently and I personally spent this critical care time directly and personally managing the patient. This critical care time included obtaining a history; examining the patient; pulse oximetry; ordering and review of studies; arranging urgent treatment with development of a management plan; evaluation of patient's response to treatment; frequent reassessment; and discussions with other providers. It was exclusive of separately billable procedures and treating other patients and teaching time. Please see Assessment and Plan section and the rest of the note for further information on patient assessment and treatment This dictation may have been done utilizing a voice recognition system. Attempts have been made to correct errors. However, there may be uncorrected grammatical, spelling, and recognitions errors present. Band Saw Runner Consult Note Consult date: 10/16/24 Reason for consult: NSTEMI, complete heart block status post angiogram and temporary venous pacemaker placement. 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 Patient stated that she has been having fatigue for the last 2 months as well as lightheadedness. She has been experiencing chest discomfort along with shortness of breath with physical exertion. She is able to do ADLs. Yes the [facility] felt chest discomfort in his chest which worsened probably going to come to the emergency room. Patient was sleeping when the chest come from developed, left-sided with some pressure, radiating to the left shoulder and to her back. Patient also found to be in complete AV block. Patient was taken to the cardiac laborer sawmill on this morning, temporary via pacemaker was inserted. No coronary artery disease. Patient was transferred to the ICU for further management Patient seen and examined the ICU, is awake, alert, oriented x3, nonfocal, states she is thirsty. Some soreness in the right side at the site of transvenous pacemaker insertion. Denies any dizziness, shortness of breath, chest pain, abdominal pain, nausea vomiting at this time Review of Systems 2 Review of Systems: All systems reviewed & are unremarkable except as noted in HPI and below PMFSH Past Medical History Medical History DM2 (diabetes mellitus, type 2) Macular degeneration Diabetic retinopathy Obesity Lumbar radiculopathy Acute seasonal allergic rhinitis DM w/o complication type II, uncontrolled Essential (primary) hypertension Gastro-esophageal reflux disease without esophagitis Hereditary and idiopathic neuropathy, unspecified Major depressive disorder, single episode, unspecified Symptomatic menopausal or female climacteric states Mixed hyperlipidemia History of nummular eczema Other specified diabetes mellitus with diabetic neuropathy, unspecified Primary central sleep apnea Restless legs syndrome Type 2 diabetes mellitus without complications Benign essential hypertension with target blood pressure below 140/90 Organic sleep apnea, unspecified Vitamin D deficiency, unspecified Surgical History Surgical History S/P total knee arthroplasty On the left History of left knee surgery (~2009) History of cholecystectomy (~1989) History of hysterectomy (~1983) Family History Family History Grandparent Diabetes mellitus Family history of kidney disease Father Hypertension Family history of coronary artery disease Family history of elevated blood lipids Family history of cardiovascular disease Unknown Arthritis Parkinsons Other Acute myocardial infarction Social History Social History Social History: 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 The patient desires to be a full code. She has 4 children. She is a lifelong nonsmoker. rarely drinks. She does not use any marijuana or illicit drugs. Smoking status: Never smoker Additional smoking assessment comments: DENIES ANY FORM OF TOBACCO USE Alcohol intake: never Alcohol use details: ONE DRINK PER MONTH Substance use: never Substance use type: does not use Last use: special occasions has a drink Do You Feel Safe in your Home?: Yes Lack of Transportation: No Lack of Food: Never True Current Housing: I Have Housing Concerned About Future Housing: No Difficulty Paying Gas/Electric Bills: No Difficulty Paying for Meds: No Currently Unemployed: No Education: Associate Degree Difficulty w/ Childcare or Family Care: No Living arrangements: with family Gender identity (if verbalized by the patient): Female Spiritual care concerns: No Meds Home Medications and Allergies Home Medications ?Medication ?Instructions ?Recorded ?Confirmed ?Type cholecalciferol (vitamin D3) 50 100 mcg PO BID 02/13/20 10/16/24 History mcg (2,000 unit) capsule glucagon 1 mg injection kit 1 mg .Route PRN PRN Hyperglycemia 02/27/20 10/16/24 History insulin NPH isoph U-100 human 100 See Rx Instructions .Route .COMPLEX 02/27/20 10/16/24 History unit/mL subcutaneous suspension (Novolin N NPH U-100 Insulin isophane) insulin aspart U-100 100 unit/mL 36.95 unit subcut DAILY 02/27/20 10/16/24 History subcutaneous solution (Novolog U-100 Insulin aspart) tizanidine 4 mg tablet 4 mg PO TID PRN muscle spasticity 05/27/20 09/29/21 Rx #90 tabs liraglutide 0.6 mg/0.1 mL (18 mg/3 See Rx Instructions subcut .COMPLEX 09/16/20 10/16/24 History mL) subcutaneous pen injector (Victoza 2-Khadar) multivitamin (Daily Multi-Vitamin 1 tablet PO DAILY 09/16/20 10/16/24 History tablet) omega-3 fatty acids 100 mg 100 mg PO DAILY 09/16/20 10/16/24 History chewable tablet vitamin B complex (B 2 tablet PO DAILY 09/16/20 10/16/24 History Complex-Vitamin B12 tablet) losartan 50 mg tablet See Rx Instructions .Route 11/04/20 10/16/24 Rx .COMPLEX #90 tabs furosemide 20 mg tablet See Rx Instructions .Route 11/26/20 10/16/24 Rx .COMPLEX #90 tabs atorvastatin 10 mg tablet See Rx Instructions .Route 05/28/21 10/16/24 Rx .COMPLEX #90 tabs calcium acetate 667 mg tablet 1,334 mg PO DAILY 10/16/24 10/16/24 History diphenhydramine HCl 25 mg capsule 25 mg PO HS PRN sleep 10/16/24 10/16/24 History (Benadryl) gabapentin 100 mg capsule 100 mg PO HS 10/16/24 10/16/24 History magnesium 30 mg tablet 30 mg PO BID 10/16/24 10/16/24 History Allergies Allergy/AdvReac Type Severity Reaction Status Date / Time povidone-iodine (From AdvReac Intermediate BAD RASH Verified 10/16/24 12:26 Betadine) soap (From Betadine) AdvReac Intermediate BAD RASH Verified 10/16/24 12:26 erythromycin base AdvReac Mild Nausea Verified 10/16/24 12:26 meperidine (From Demerol) AdvReac Mild Nausea and Verified 10/16/24 12:26 Vomiting Vital Signs Vital Signs - 24 hr 10/16/24 01:45 10/16/24 01:55 10/16/24 03:39 Temperature 98.9 F Pulse Rate 55 L 54 L Respiratory Rate 14 14 Blood Pressure 177/78 H 112/59 L Pulse Oximetry 100 100 99 Oxygen Delivery Room Air Room Air Oxygen Flow Rate 10/16/24 06:54 10/16/24 08:00 10/16/24 12:27 Temperature Pulse Rate 45 L 50 L Respiratory Rate 15 15 Blood Pressure 108/51 L 119/61 Pulse Oximetry 99 99 100 Oxygen Delivery Nasal Cannula Oxygen Flow Rate 2 Exam 2 Narrative: General: Pleasant female in no acute distress HEENT:? Pupils equal and reactive, scan is clear, dry oral mucosa Neck:? Supple Respiratory:? Clear to auscultation bilaterally, no wheezing, decreased air entry at bases Cardiac:? Paced rhythm Abdomen:? Soft, nontender, nondistended, normoactive bowel sounds Extremities:? Right groin site without any evidence of ecchymosis or hematoma. Right transvenous pacemaker in place Neuro:? Patient is awake, alert, oriented x3, answers to questions appropriately and follows simple commands in all extremities Skin:? No lesions noted, warm and dry Psych:? Normal mentation and affect Results Labs 10/16/24 09:59 10/16/24 01:52 Labs: Short CBC 10/16/24 10/16/24 Range/Units 01:52 09:59 WBC 8.2 8.8 (4.5-10.0) K/mm3 Hgb 13.6 D 12.0 (12.0-15.0) g/dL Hct 39.8 36.6 L (37.0-47.0) % Plt Count 201 172 (150-375) k/mm3 BMP 10/16/24 01:52 Sodium 140 Potassium 4.0 Chloride 104 Carbon Dioxide 23 BUN 13 Creatinine 0.73 Glucose 173 H Calcium 9.1 Cardiac Enzymes 10/16/24 10/16/24 10/16/24 Range/Units 01:52 05:15 07:51 Troponin I 0.233 H* 2.100 H* D 2.120 H* (0.000-0.034) ng/mL Liver Function 10/16/24 Range/Units 01:52 Total Bilirubin 0.9 (0.2-1.3) mg/dL AST 61 H (14-36) U/L ALT 39 H (6-35) U/L Alkaline Phosphatase 106 (38-126) U/L Albumin 4.1 (3.5-5.1) g/dL Hospitalist MIPS Advance Care Plan I have confirmed that the patient's Advanced Care Plan is present, code status is documented, or surrogate decision maker is listed in patient medical record.: Yes Medication Reconciliation I have utilized all available resources to obtain, update and review the patients current medications (includes all prescriptions, OTC, herbals, cannabis, and nutritional supplements).: Yes
[2024-10-16] MEDS: SODIUM CHLORIDE 0.9% IV 1,000 ML 125 ML IV CONT (13:59)
--- NOTE | 2024-10-16 15:21 | P.HP_ITS ---
H&P: HPI History of Present Illness Date/Time: 10/16/24 15:21 Chief Complaint: Chest pain Narrative: ER-HPI narrative: Is a 3-year-old female who presents emergency department chief complaint of left -sided chest pain patient reports that around midnight 15 the patient started having pain in left shoulder and had pain radiated to her back patient states that several episodes last around 10 minutes. The patient reports she had nausea and getting diaphoretic. The patient reports she has prior history of bradycardia Patient is 83-year-old female had been having chest discomfort for last few mo nths however last night the pain woke up the patient from sleep and patient presented emergency department for further evaluation, patient EKG showed patient had a complete heart block patient is seen by securities lending trader and recommending patient will need pacemaker, patient will be taken to the orthodontic laboratory technician. will continue to monitor and further recommendation to follow. Review of Systems Review of Systems: All systems reviewed & are unremarkable except as noted in HPI and below PMFSH Past Medical History Medical History DM2 (diabetes mellitus, type 2) Macular degeneration Diabetic retinopathy Obesity Lumbar radiculopathy Acute seasonal allergic rhinitis DM w/o complication type II, uncontrolled Essential (primary) hypertension Gastro-esophageal reflux disease without esophagitis Hereditary and idiopathic neuropathy, unspecified Major depressive disorder, single episode, unspecified Symptomatic menopausal or female climacteric states Mixed hyperlipidemia History of nummular eczema Other specified diabetes mellitus with diabetic neuropathy, unspecified Primary central sleep apnea Restless legs syndrome Type 2 diabetes mellitus without complications Benign essential hypertension with target blood pressure below 140/90 Organic sleep apnea, unspecified Vitamin D deficiency, unspecified Surgical History Surgical History S/P total knee arthroplasty On the left History of left knee surgery (~2009) History of cholecystectomy (~1989) History of hysterectomy (~1983) Family History Family History Grandparent Diabetes mellitus Family history of kidney disease Father Hypertension Family history of coronary artery disease Family history of elevated blood lipids Family history of cardiovascular disease Unknown Arthritis Parkinsons Other Acute myocardial infarction Social History Social History Social History: She is a retired high school nurse. She lives with her who is a durable power patent attorney for healthcare. The patient desires to be a full code. She has 4 children. She is a lifelong nonsmoker. rarely drinks. She does not use any marijuana or illicit drugs. Smoking status: Never smoker Additional smoking assessment comments: DENIES ANY FORM OF TOBACCO USE Alcohol intake: never Alcohol use details: ONE DRINK PER MONTH Substance use: never Substance use type: does not use Last use: special occasions has a drink Do You Feel Safe in your Home?: Yes Lack of Transportation: No Lack of Food: Never True Current Housing: I Have Housing Concerned About Future Housing: No Difficulty Paying Gas/Electric Bills: No Difficulty Paying for Meds: No Currently Unemployed: No Education: Associate Degree Difficulty w/ Childcare or Family Care: No Living arrangements: with family Gender identity (if verbalized by the patient): Female Spiritual care concerns: No Meds Home Medications and Allergies Home Medications ?Medication ?Instructions ?Recorded ?Confirmed ?Type cholecalciferol (vitamin D3) 50 100 mcg PO BID 02/13/20 10/16/24 History mcg (2,000 unit) capsule glucagon 1 mg injection kit 1 mg .Route PRN PRN Hyperglycemia 02/27/20 10/16/24 History insulin NPH isoph U-100 human 100 See Rx Instructions .Route .COMPLEX 02/27/20 10/16/24 History unit/mL subcutaneous suspension (Novolin N NPH U-100 Insulin isophane) insulin aspart U-100 100 unit/mL 36.95 unit subcut DAILY 02/27/20 10/16/24 History subcutaneous solution (Novolog U-100 Insulin aspart) tizanidine 4 mg tablet 4 mg PO TID PRN muscle spasticity 05/27/20 09/29/21 Rx #90 tabs liraglutide 0.6 mg/0.1 mL (18 mg/3 See Rx Instructions subcut .COMPLEX 09/16/20 10/16/24 History mL) subcutaneous pen injector (Victoza 2-Khadar) multivitamin (Daily Multi-Vitamin 1 tablet PO DAILY 09/16/20 10/16/24 History tablet) omega-3 fatty acids 100 mg 100 mg PO DAILY 09/16/20 10/16/24 History chewable tablet vitamin B complex (B 2 tablet PO DAILY 09/16/20 10/16/24 History Complex-Vitamin B12 tablet) losartan 50 mg tablet See Rx Instructions .Route 11/04/20 10/16/24 Rx .COMPLEX #90 tabs furosemide 20 mg tablet See Rx Instructions .Route 11/26/20 10/16/24 Rx .COMPLEX #90 tabs atorvastatin 10 mg tablet See Rx Instructions .Route 05/28/21 10/16/24 Rx .COMPLEX #90 tabs calcium acetate 667 mg tablet 1,334 mg PO DAILY 10/16/24 10/16/24 History diphenhydramine HCl 25 mg capsule 25 mg PO HS PRN sleep 10/16/24 10/16/24 History (Benadryl) gabapentin 100 mg capsule 100 mg PO HS 10/16/24 10/16/24 History magnesium 30 mg tablet 30 mg PO BID 10/16/24 10/16/24 History Allergies Allergy/AdvReac Type Severity Reaction Status Date / Time povidone-iodine (From AdvReac Intermediate BAD RASH Verified 10/16/24 12:26 Betadine) soap (From Betadine) AdvReac Intermediate BAD RASH Verified 10/16/24 12:26 erythromycin base AdvReac Mild Nausea Verified 10/16/24 12:26 meperidine (From Demerol) AdvReac Mild Nausea and Verified 10/16/24 12:26 Vomiting Vital Signs Vital Signs - 24 hr 10/16/24 01:45 10/16/24 01:55 10/16/24 03:39 Temperature 37.2 C Pulse Rate 55 L 54 L Respiratory Rate 14 14 Blood Pressure 177/78 H 112/59 L Pulse Oximetry 100 100 99 Oxygen Delivery Room Air Room Air Oxygen Flow Rate 10/16/24 06:54 10/16/24 08:00 10/16/24 12:27 Temperature Pulse Rate 45 L 50 L Respiratory Rate 15 15 Blood Pressure 108/51 L 119/61 Pulse Oximetry 99 99 100 Oxygen Delivery Nasal Cannula Oxygen Flow Rate 2 Exam Narrative: Patient is comfortable, NAD HEENT: eyes are clear and none icteric LUNGS:CTA HEART: RR S1S2 ABD: BS+, Soft and nontender Lower extremities: no edema SKIN: nonjaundiced Neuro: grossly intact. H&P: Results Labs Labs: Short CBC 10/16/24 10/16/24 Range/Units 01:52 09:59 WBC 8.2 8.8 (4.5-10.0) K/mm3 Hgb 13.6 D 12.0 (12.0-15.0) g/dL Hct 39.8 36.6 L (37.0-47.0) % Plt Count 201 172 (150-375) k/mm3 BMP 10/16/24 01:52 Sodium 140 Potassium 4.0 Chloride 104 Carbon Dioxide 23 BUN 13 Creatinine 0.73 Glucose 173 H Calcium 9.1 Cardiac Enzymes 10/16/24 10/16/24 10/16/24 Range/Units 01:52 05:15 07:51 Troponin I 0.233 H* 2.100 H* D 2.120 H* (0.000-0.034) ng/mL Liver Function 10/16/24 Range/Units 01:52 Total Bilirubin 0.9 (0.2-1.3) mg/dL AST 61 H (14-36) U/L ALT 39 H (6-35) U/L Alkaline Phosphatase 106 (38-126) U/L Albumin 4.1 (3.5-5.1) g/dL Assessment and Plan Assessment and plan (1) Complete heart block: Code(s): I44.2 - Atrioventricular block, complete Status: Acute (2) Non-ST elevation [place] (NSTEMI): Code(s): I21.4 - Non-ST elevation (NSTEMI) myocardial infarction Status: Acute (3) DM2 (diabetes mellitus, type 2): Code(s): E11.9 - Type 2 diabetes mellitus without complications Status: Chronic (4) Essential (primary) hypertension: Code(s): I10 - Essential (primary) hypertension Status: Chronic Plan Patient is 83-year-old female had been having chest discomfort for last few months however last night the pain woke up the patient from sleep and patient presented emergency department for further evaluation, patient EKG showed patient had a complete heart block patient is seen by securities lending trader and recommending patient will need pacemaker, patient will be taken to the orthodontic laboratory technician. will continue to monitor and further recommendation to follow.
[2024-10-16 15:29] LABS: MRSA (PCR) NOT DETECTED (NOT DETECTE)
[2024-10-16] MEDS: MORPHINE SULFATE (*CRX) 2 MG/ML INJ IV PUSH (16:05)
[2024-10-16 17:44] LABS: Glucose Point of Care 127 mg/dl (65-105)
[2024-10-16] MEDS: GABAPENTIN 100 MG CAPSULE PO (20:14)
[2024-10-16] MEDS: ATORVASTATIN 10 MG TABLET BY MOUTH (20:14)
[2024-10-16] MEDS: ACETAMINOPHEN 325 MG TABLET 650 MG PO (20:15)
[2024-10-16 20:21] LABS: Glucose Point of Care 138 mg/dl (65-105)
[2024-10-16 22:09] LABS: Glucose Point of Care 149 mg/dl (65-105)
[2024-10-17] VITALS (13 sets, daily range): BP systolic 101–128; BP diastolic 42–56; PULSE 50–66; RESP 12–150; TEMP 36.7–37.6; O2SAT 96–100; BMI 32.1
--- NOTE | 2024-10-17 | ECHO_ITS ---
Patient Info Name: Melanie Hutton Age: 83 years : 1940 Gender: Female Ht: 66 in Wt: 196 lbs BSA: 2.06 m2 HR: 50 bpm BP: 103 / 46 mmHg Heart Rhythm: Paced Technical Quality: Fair Exam Date: 10/17/2024 9:31 AM Exam Location: Echo Lab Patient Status: Inpatient Admit Date: 10/16/2024 Staff Ordering Physician: Tiara Sarkar MD Scout Sniper: Rosario Jensen RDCS Attending Provider: Malaika Durant DO Referring Physician: Mello BRAXTON; Exam Type: CA echo dop color flow w con Study Info Indications - Complete heart block Complete two-dimensional, color flow and Doppler transthoracic echocardiogram is performed with contrast to opacify the left ventricle and to improve the deliniation of the left ventricle endocardial borders. Contrast/Agitated Saline Contrast/Ag. Saline: Definity Amount: 2.00 ml Summary 1. Left ventricular chamber dimension is normal. 2. There is mildly increased left ventricular wall thickness. 3. Left ventricular systolic function is moderately reduced with an ejection fraction by Biplane Method of Discs of 38 %. 4. There is hypokinesis of the mid-distal LV. 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 5. The left ventricular diastolic function is grade I diastolic dysfunction. 6. Right ventricular systolic function is normal. 7. Left atrial chamber dimension is mildly enlarged. 8. There is mild mitral valve regurgitation. 9. There is mild tricuspid valve regurgitation. Left Ventricle Left ventricular chamber dimension is normal. There is mildly increased left ventricular wall thickness. Left ventricular systolic function is moderately reduced with an ejection fraction by Biplane Method of Discs of 38 %. There is hypokinesis of the mid-distal LV. 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 The left ventricular diastolic function is grade I diastolic dysfunction. Right Ventricle Linear artifact in right ventricle suggestive of catheter(s), pacemaker lead(s), or ICD lead(s). Right ventricular chamber dimension is normal. Right ventricular systolic function is normal. Left Atria Left atrial chamber dimension is mildly enlarged. Right Atria Right atrial chamber dimension is normal. Atrial Septum Intact interatrial septum visualized by color flow imaging. Aortic Valve The aortic valve is not well visualized. There is no aortic valve stenosis. There is trace aortic valve regurgitation. Pulmonic Valve The pulmonic valve is not well visualized. There is no pulmonic regurgitation. Mitral Valve There is mild mitral valve regurgitation. The mitral valve annulus is mildly calcified. Tricuspid Valve There is mild tricuspid valve regurgitation. Pericardium/Pleural There is no pericardial effusion. Inferior Vena Cava Normal inferior vena cava with >50% collapse upon inspiration consistent with normal right atrial pressure, 3 mmHg. Aorta The aortic root size at the sinus of Valsalva is normal. Left Ventricular Outflow Tract Name Value Normal LVOT 2D LVOT Diameter 1.82 cm LVOT Doppler LVOT Peak Gradient 7 mmHg LVOT Mean Gradient 4 mmHg LVOT VTI 34.38 cm LVOT VTI/AV VTI Ratio 1.09 LVOT Stroke Volume 89.50 ml LVOT CO 14.11 l/min LVOT CI 6.83 L/min/m2 Pulmonic Valve Name Value Normal PV Doppler PV Peak Gradient 4 mmHg Mitral Valve Name Value Normal MV Doppler MV Decel [place] 197.82 cm/s2 MV PHT 0 s MV Area (PHT) 1.96 cm2 4.00-5.00 MV Diastolic Function MV E Peak Velocity 76.72 cm/s MV A Peak Velocity 99.44 cm/s MV E/A 0.77 MV Decel Time 0 s MV Annular TDI MV E/e' (Septal) 11.67 <=8.00 MV E/e' (Lateral) 9.96 <=8.00 MV E/e' (Average) 10.81 Tricuspid Valve Name Value Normal TV Regurgitation Doppler TR Peak Velocity 322.69 cm/s TR Peak Gradient 40 mmHg Estimated PAP/RSVP RA Pressure 3 mmHg <=5 PA Systolic Pressure 45 mmHg <36 RV Systolic Pressure 45 mmHg <36 Aorta Name Value Normal Ascending Aorta Ao Root Diameter (MM) 3.34 cm Ao Root Diam Index (MM) 1.62 cm/m2 Aortic Valve Name Value Normal AV Doppler AV Peak Velocity 151.89 cm/s AV Peak Gradient 9 mmHg AV Mean Gradient 5 mmHg AV VTI 31.45 cm AV Area (Cont Eq VTI) 2.85 cm2 >=3.00 AV Area (Cont Eq Cem) 2.19 cm2 AV Regurgitation 2D LVOT Area 2.60 cm2 Ventricles Name Value Normal LV Dimensions 2D/MM IVS Diastolic Thickness (2D) 1.23 cm 0.60-1.00 LVID Diastole (2D) 4.07 cm 3.80-5.20 LVIW Diastolic Thickness (2D) 1.20 cm 0.60-0.90 LVID Systole (2D) 2.27 cm 2.20-3.50 LVOT Diameter 1.82 cm LV Mass (2D Cubed) 173.98 g 67.00-162.00 LV Mass Index (2D Cubed) 0.01 g/cm2 0.00-0.01 Relative Wall Thickness (2D) 0.59 LV Fractional Shortening/Ejection Fraction 2D/MM LV Fractional Shortening (2D) 44 % 27-45 LV EF (2D Teicholz) 76 % 54-74 LV Diastolic Volume (4C MOD) 144.45 ml LV EF (4C MOD) 37 % LV Diastolic Volume (2C MOD) 79.30 ml LV EF (2C MOD) 35 % LV Diastolic Volume (BP MOD) 112.19 ml 46.00-106.00 LV Diastolic Volume Index (BP MOD) 0.05 l/m2 0.03-0.06 LV Systolic Volume (BP MOD) 69.88 ml 14.00-42.00 LV Systolic Volume Index (BP MOD) 0.03 l/m2 0.01-0.02 LV EF (BP MOD) 38 % 54-74 LV Diastolic Length (4C) 9.36 cm LV Systolic Length (4C) 8.41 cm LV Stroke Volume (4C MOD) 52.69 ml Atria Name Value Normal LA Dimensions LA Dimension (MM) 0.00 cm 2.70-3.80 LA Volume (4C A-L) 48.88 ml LA Volume (BP A-L) 62.06 ml Report Signatures
--- NOTE | 2024-10-17 02:10 | ECG_ITS ---
Test Date: 2024-10-17 02:13:11 Measurements Intervals [place] Rate: 50 P: 0 IA: 0 QRS: -67 QRSD: 162 T: 110 QT: 614 QTc: 560 Interpretive Statements ELECTRONIC VENTRICULAR PACEMAKER ABNORMAL RHYTHM ECG Compared to ECG 10/16/2024 10:00:44 Sinus bradycardia no longer present AV block, complete (third-degree) no longer present Left-axis deviation no longer present Left bundle-branch block no longer present Electronically Signed On 10-18-2024 09:43:09 [employer] CAN by Lee Monson M.D.
[2024-10-17] MEDS: MORPHINE SULFATE (*CRX) 2 MG/ML INJ IV PUSH ×2 (02:12→16:54)
[2024-10-17 04:47] LABS: Basophils Percent Auto 0.4 % (0.2-1.2); Eosinophils Absolute Auto 0.1 K/mm3 (0-0.3); Eosinophils Percent Auto 0.9 % (0-4.4); Hematocrit 35.6 % (37.0-47.0); Hemoglobin 11.7 g/dL (12.0-15.0); Immature Granulocyte Absolute 0.06 K/mm3 (0.00-0.031); Immature Granulocyte Percent A 0.6 % (0-0.5); Lymphocytes Absolute Auto 1.38 K/mm3 (0.9-3.2); Lymphocytes Percent Auto 14.1 % (18.3-44.2); Mean Corpuscular HGB Conc 32.9 g/dl (32-36); Mean Corpuscular Hemoglobin 31.5 pg (26-34); Mean Corpuscular Volume 95.7 fl (80-100); Mean Platelet Volume 9.6 fl (7.4-10.4); Monocytes Absolute Auto 0.7 K/mm3 (0.1-0.6); Monocytes Percent Auto 6.6 % (2.6-8.5); Neutrophils Absolute Auto 7.6 K/mm3 (1.3-6.7); Neutrophils Percent Auto 77.4 % (45.5-73.1); Platelet Count Result 165 k/mm3 (150-375); Red Blood Count 3.72 M/mm3 (4.2-5.4); Red Cell Distribution Width 13.8 % (11.5-14.5); White Blood Count 9.8 K/mm3 (4.5-10.0)
[2024-10-17 04:59] LABS: INR 1.2; Prothrombin Time 15.2 Seconds (11.1-14.7)
[2024-10-17 05:00] LABS: Partial Thromboplastin Time 32.4 Seconds (22.3-36.8)
[2024-10-17 05:06] LABS: Anion Gap 7 mmol/L (4-12); Blood Urea Nitrogen 11 mg/dL (7-17); Calcium 8.3 mg/dL (8.4-10.2); Carbon Dioxide 25 mmol/L (22-30); Chloride 107 mmol/L (98-107); Estimated CRCL calculation 66 ml/min; Estimated Glomerular Filt Rate > 60; Glucose 169 mg/dL (65-110); Magnesium 1.9 mg/dL (1.6-2.3); Phosphorus 3.6 mg/dL (2.5-4.5); Potassium 4.1 mmol/L (3.4-5.0); Sodium 139 mmol/L (137-145)
[2024-10-17 08:40] LABS: Glucose Point of Care 175 mg/dl (65-105)
[2024-10-17] MEDS: ASPIRIN 81 MG CHEWABLE TABLET PO (09:20)
[2024-10-17] MEDS: MAGNESIUM SULF 1 GM/D5W 100 ML 1 GM/100 ML BAG IVPB (09:20)
[2024-10-17] MEDS: PERFLUTREN LIPID MICROSPHERES 1.5 ML VIAL DILUTED TO 10 ML TOTAL VOLUME IV PUSH (10:00)
--- NOTE | 2024-10-17 10:57 | IVDEFINITY ---
Prior to administration of IV Definity the patient was educated on the risks and benefits of the imaging enhancing agent including potential adverse side effects. The patient verbalized understanding. Allergies were verified. No exclusion criteria were identified and at least one of the following inclusion criteria were met: 1) physician request, 2) patient technically difficult to image (per the [place] [employer]ocardi[employer] guidelines of two or more segments not discernable within the apical view), or 3) questionable left ventricular function. ?
--- NOTE | 2024-10-17 11:05 | WPDINTPN ---
Progress Note: A&P Assessment and Plan (1) Complete heart block: Code(s): I44.2 - Atrioventricular block, complete Status: Acute Assessment and Plan: Patient with complete heart block status post transvenous pacemaker placed on 10/16/2024 by Cardiology -echocardiogram is being done which will decide what kind of pacemaker she needs to receive -continue pacing at rate of 50. Hemodynamics have improved -cardiology following. Case discussed with Cardiology (2) Non-ST elevation [place] (NSTEMI): Code(s): I21.4 - Non-ST elevation (NSTEMI) myocardial infarction Status: Acute Assessment and Plan: Patient presented with chest pain, elevated troponins, no ST elevation on EKG -10/16: Coronary angiogram with no acute coronary artery disease and no intervention -continue aspirin, statin -cardiology following the patient (3) DM2 (diabetes mellitus, type 2): Code(s): E11.9 - Type 2 diabetes mellitus without complications Status: Chronic Assessment and Plan: Since patient is not eating much will hold off her insulin pump -continue Accu-Cheks and sliding scale insulin for now Continue gabapentin for diabetic neuropathy (4) Mixed hyperlipidemia: Code(s): E78.2 - Mixed hyperlipidemia Status: Chronic Assessment and Plan: Atorvastatin that she takes at home Plan DVT prophylaxis: Status post cardiac catheterization. Lovenox Stress ulcer prophylaxis: Not indicated Nutrition: Heart healthy diet Code Status: Full code Discussed with Cardiology Critical Care Time Spent: 30 minutes Due to a high probability of clinically significant, life threatening deterioration, the patient required my highest level of preparedness to intervene emergently and I personally spent this critical care time directly and personally managing the patient. This critical care time included obtaining a history; examining the patient; pulse oximetry; ordering and review of studies; arranging urgent treatment with development of a management plan; evaluation of patient's response to treatment; frequent reassessment; and discussions with other providers. It was exclusive of separately billable procedures and treating other patients and teaching time. Please see Assessment and Plan section and the rest of the note for further information on patient assessment and treatment This dictation may have been done utilizing a voice recognition system. Attempts have been made to correct errors. However, there may be uncorrected grammatical, spelling, and recognitions errors present. Subjective Date/time seen: 10/17/24 Overnight events reviewed. Afebrile Continues to be on 2 L nasal cannula Continues to be paced by transvenous pacer at rate of 50 with adequate blood pressure States that she clinically feels better but has chest pain with deep breathing and coughing. Has dyspnea on exertion. Her nausea and vomiting has resolved. Denies any other complaints. All other systems were reviewed and were negative Urine output is on the lower side. Other Vitals acceptable Review of Systems Review of Systems: All systems reviewed & are unremarkable except as noted in HPI and below Exam Narrative: General: Pleasant female in no acute distress HEENT:? Pupils equal and reactive, scan is clear, dry oral mucosa Neck:? Supple Respiratory:? Clear to auscultation bilaterally, no wheezing, decreased air entry at bases Cardiac:? Paced rhythm Abdomen:? Soft, nontender, nondistended, normoactive bowel sounds Extremities:? Right groin site without any evidence of ecchymosis or hematoma. Right transvenous pacemaker in place Neuro:? Patient is awake, alert, oriented x3, answers to questions appropriately and follows simple commands in all extremities Skin:? No lesions noted, warm and dry Psych:? Normal mentation and affect Objective Data Vital Signs Vital Signs: Vital Signs - 24 hr 10/16/24 12:00 10/16/24 12:00 10/16/24 12:00 Temperature Pulse Rate 50 L 50 L Pulse Rate [Right Pedal (Dorsalis Pedis) Palpation] Respiratory Rate 15 Blood Pressure 119/61 Pulse Oximetry 100 100 Oxygen Delivery Nasal Cannula Oxygen Flow Rate 2 Fraction of Inspired Oxygen 10/16/24 12:15 10/16/24 12:27 10/16/24 12:30 Temperature Pulse Rate 50 L 50 L 50 L Pulse Rate [Right Pedal (Dorsalis Pedis) Palpation] Respiratory Rate 144 H 15 16 Blood Pressure 132/59 L 119/61 125/65 Pulse Oximetry 100 100 99 Oxygen Delivery Oxygen Flow Rate Fraction of Inspired Oxygen 10/16/24 12:45 10/16/24 13:00 10/16/24 13:30 Temperature Pulse Rate 50 L 50 L 50 L Pulse Rate [Right Pedal (Dorsalis Pedis) Palpation] Respiratory Rate 15 12 12 Blood Pressure 126/57 L 124/57 L 135/52 L Pulse Oximetry 99 100 99 Oxygen Delivery Oxygen Flow Rate Fraction of Inspired Oxygen 10/16/24 14:00 10/16/24 14:00 10/16/24 15:00 Temperature Pulse Rate 50 L 50 L 50 L Pulse Rate [Right Pedal (Dorsalis Pedis) Palpation] Respiratory Rate 16 12 Blood Pressure 133/53 L 133/64 Pulse Oximetry 100 100 Oxygen Delivery Oxygen Flow Rate Fraction of Inspired Oxygen 10/16/24 16:00 10/16/24 16:00 10/16/24 16:00 Temperature 36.9 C Pulse Rate 50 L 50 L Pulse Rate [Right Pedal (Dorsalis Pedis) Palpation] Respiratory Rate 15 Blood Pressure 133/70 Pulse Oximetry 100 100 Oxygen Delivery Nasal Cannula Oxygen Flow Rate 2 Fraction of Inspired Oxygen 10/16/24 16:00 10/16/24 17:00 10/16/24 17:00 Temperature Pulse Rate 50 L 50 L 50 L Pulse Rate [Right Pedal (Dorsalis Pedis) Palpation] Respiratory Rate 15 11 L 14 Blood Pressure 133/70 139/54 L 139/54 L Pulse Oximetry 100 96 96 Oxygen Delivery Oxygen Flow Rate Fraction of Inspired Oxygen 10/16/24 18:00 10/16/24 18:00 10/16/24 18:00 Temperature 36.9 C Pulse Rate 50 L 50 L 50 L Pulse Rate [Right Pedal (Dorsalis Pedis) Palpation] Respiratory Rate 15 15 Blood Pressure 141/57 H 141/57 H Pulse Oximetry 100 99 Oxygen Delivery Oxygen Flow Rate Fraction of Inspired Oxygen 10/16/24 19:00 10/16/24 20:00 10/16/24 20:00 Temperature 36.7 C 36.7 C Pulse Rate 50 L 50 L Pulse Rate [Right Pedal (Dorsalis Pedis) Palpation] Respiratory Rate 12 15 Blood Pressure 134/50 L 140/63 Pulse Oximetry 99 99 99 Oxygen Delivery Nasal Cannula Oxygen Flow Rate 2 Fraction of Inspired Oxygen 10/16/24 20:00 10/16/24 20:00 10/16/24 21:00 Temperature 36.6 C Pulse Rate 50 L 50 L Pulse Rate [Right Pedal (Dorsalis Pedis) Palpation] 50 L Respiratory Rate 14 Blood Pressure 139/55 L Pulse Oximetry 99 Oxygen Delivery Oxygen Flow Rate Fraction of Inspired Oxygen 10/16/24 21:21 10/16/24 22:00 10/16/24 22:00 Temperature 36.8 C Pulse Rate 50 L 50 L Pulse Rate [Right Pedal (Dorsalis Pedis) Palpation] Respiratory Rate 16 Blood Pressure 116/47 L Pulse Oximetry 99 97 Oxygen Delivery Nasal Cannula Oxygen Flow Rate 2 Fraction of Inspired Oxygen 28 10/17/24 00:00 10/17/24 00:00 10/17/24 00:00 Temperature Pulse Rate 58 L Pulse Rate [Right Pedal (Dorsalis Pedis) Palpation] 63 Respiratory Rate Blood Pressure Pulse Oximetry 97 Oxygen Delivery Nasal Cannula Oxygen Flow Rate 2 Fraction of Inspired Oxygen 10/17/24 00:00 10/17/24 02:00 10/17/24 02:00 Temperature 36.8 C 36.7 C Pulse Rate 63 50 L 50 L Pulse Rate [Right Pedal (Dorsalis Pedis) Palpation] Respiratory Rate 13 16 Blood Pressure 101/48 L 115/56 L Pulse Oximetry 97 98 Oxygen Delivery Oxygen Flow Rate Fraction of Inspired Oxygen 10/17/24 04:00 10/17/24 04:00 10/17/24 04:00 Temperature 36.8 C Pulse Rate 50 L 50 L Pulse Rate [Right Pedal (Dorsalis Pedis) Palpation] Respiratory Rate 12 Blood Pressure 103/46 L Pulse Oximetry 97 97 Oxygen Delivery Nasal Cannula Oxygen Flow Rate 2 Fraction of Inspired Oxygen 10/17/24 04:00 10/17/24 06:00 10/17/24 06:00 Temperature 37.1 C Pulse Rate 50 L 50 L Pulse Rate [Right Pedal (Dorsalis Pedis) Palpation] 60 Respiratory Rate 13 Blood Pressure 104/44 L Pulse Oximetry 99 Oxygen Delivery Oxygen Flow Rate Fraction of Inspired Oxygen Intake/Output Intake/Output: Intake & Output 10/14/24 10/15/24 10/16/24 10/17/24 23:59 23:59 23:59 23:59 Intake Total 2240 400 Output Total 800 Balance 2240 -400 Meds/Results Medications: Active Medications Generic Name Dose Route Start Last Admin Trade Name Freq PRN Reason Stop Dose Admin Acetaminophen 650 mg 10/16/24 03:43 10/16/24 20:15 Acetaminophen 325 Mg Tablet PO 650 mg Q4H PRN Administration Mild Pain (1-3) or Fever Aspirin 81 mg 10/16/24 12:00 10/17/24 09:20 Aspirin 81 Mg Chewable Tablet PO 81 mg DAILY@0800 GAVIN Administration Atorvastatin Calcium 10 mg 10/16/24 21:00 10/16/24 20:14 Atorvastatin 10 Mg Tablet BY MOUTH 10 mg QHS GAVIN Administration Dextrose 12.5 gm 10/16/24 13:19 Dextrose 50% 25 Gm/50 Ml Syringe IV PUSH PRN PRN Hypoglycemia Protocol Gabapentin 100 mg 10/16/24 21:00 10/16/24 20:14 Gabapentin 100 Mg Capsule PO 100 mg HS GAVIN Administration Glucagon 1 mg 10/16/24 13:19 Glucagon For Inj 1 Mg Vial IM PRN PRN Hypoglycemia Protocol Glucose 15 gm 10/16/24 13:19 Glucose Oral Gel 15 Gm Of Glucse In 37.5 Gm Tube PO PRN PRN Hypoglycemia Protocol Dextrose 1,000 mls @ 100 mls/hr 10/16/24 13:19 Dextrose 5% 1,000 Ml IVPB PRN PRN Hypoglycemia Protocol Insulin Aspart 3 - 6 units 10/16/24 17:00 10/17/24 08:51 Insulin Aspart (*Bkc) 100 Units/Ml SUB-Q Not Given TIDWM GAVIN Protocol Insulin Aspart 1 - 3 units 10/16/24 21:00 10/16/24 20:15 Insulin Aspart (*Bkc) 100 Units/Ml SUB-Q Not Given HS [facility] Protocol Morphine Sulfate 2 mg 10/16/24 03:43 10/17/24 02:12 Morphine Sulfate (*Crx) 2 Mg/Ml Inj IV PUSH 2 mg Q2H PRN Administration Pain Rated 7-10 Ondansetron HCl 4 mg 10/16/24 03:43 10/16/24 21:22 Ondansetron Inj 4 Mg/2 Ml Vial IV PUSH 4 mg Q4H PRN Administration Nausea Radiology Results: ITS Impressions Chest X-Ray 10/16/24 07:36 Impression: No definite acute abnormality. COPD and/or bibasilar chronic interstitial change. Labs Labs: Laboratory Results - last 24 hr 10/16/24 10/16/24 10/16/24 14:11 17:41 20:14 WBC RBC Hgb Hct MCV MCH MCHC RDW Plt Count MPV Immature Gran % (Auto) Neut % (Auto) Lymph % (Auto) [place] % (Auto) Eos % (Auto) Baso % (Auto) Lymph # (Auto) [place] # (Auto) Eos # (Auto) Baso # (Auto) Abs Immat Gran (auto) Absolute Neuts (auto) Absolute Nucleated RBC Nucleated RBC % PT INR APTT Sodium Potassium Chloride Carbon Dioxide Anion Gap BUN Creatinine Estim Creat Clear Calc Estimated GFR Glucose POC Capillary Glucose 127 H 138 H Calcium Phosphorus Magnesium Nasal MRSA (PCR) Not detected 10/16/24 10/17/24 10/17/24 22:07 04:21 08:38 WBC 9.8 RBC 3.72 L Hgb 11.7 L Hct 35.6 L MCV 95.7 MCH 31.5 MCHC 32.9 RDW 13.8 Plt Count 165 MPV 9.6 Immature Gran % (Auto) 0.6 H Neut % (Auto) 77.4 H Lymph % (Auto) 14.1 L [place] % (Auto) 6.6 Eos % (Auto) 0.9 Baso % (Auto) 0.4 Lymph # (Auto) 1.38 [place] # (Auto) 0.7 H Eos # (Auto) 0.1 Baso # (Auto) 0.0 Abs Immat Gran (auto) 0.06 H Absolute Neuts (auto) 7.6 H Absolute Nucleated RBC 0.000 Nucleated RBC % 0.0 PT 15.2 H INR 1.2 APTT 32.4 Sodium 139 Potassium 4.1 Chloride 107 Carbon Dioxide 25 Anion Gap 7 BUN 11 Creatinine 0.64 L Estim Creat Clear Calc 66 Estimated GFR > 60 Glucose 169 H POC Capillary Glucose 149 H 175 H Calcium 8.3 L Phosphorus 3.6 Magnesium 1.9 Nasal MRSA (PCR)
[2024-10-17 11:34] LABS: Glucose Point of Care 220 mg/dl (65-105)
[2024-10-17] MEDS: INSULIN ASPART (*BKC) 100 UNITS/ML SUB-Q ×3 (11:35→20:05)
[2024-10-17] MEDS: ENOXAPARIN 40 MG/0.4 ML SYRINGE SUB-Q (11:36)
--- NOTE | 2024-10-17 12:04 | PM.PNCARD ---
Progress Note: A&P Assessment and Plan (1) Complete heart block: Code(s): I44.2 - Atrioventricular block, complete Status: Acute Plan 1. Complete heart block s/p temporary transvenous pacer via right femoral vein on 10/16 2. NSTEMI. [facility] with moderate non-obstructive CAD. LAD stenosis negative for ischemia by IFR. 3. Cardiomyopathy with LVEF 38% on TTE. 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 4. Hypertension 5. Hyperlipidemia 6. Diabetes mellitus PLAN: -Continue temp transvenous pacer for now. -Will discuss patient's case with Dr. Snow regarding permanent pacemaker. -Given Takotsubo cardiomyopathy, will eventually start patient on GDMT, however, will await pacemaker first. -Continue ASA 81mg once daily, statin for NOCAD. Recommendations and plan discussed with Online Advertising Analyst. Subjective Date/time seen: 10/17/24 12:04 Interval history: Reason for visit: Complete heart block HPI: 83-year-old woman with diabetes, hypertension, and hyperlipidemia who presented with chest discomfort. For the past two months, she has been having significant fatigue as well as lightheadedness. She has been also experiencing chest discomfort as well as shortness of breath with physical exertion. She lives at home and is able to take care of her activities of daily living as well as doing her own grocery shopping however she does feel that these activities have been limited by chest discomfort, shortness of breath, fatigue, as well as lightheadedness. Yesterday evening she felt the chest discomfort significantly worsened prompting her to come to the emergency room. She was at home sleeping when the chest discomfort that is left-sided that is some pressure as well as sharp in nature that woke her up. Date of service 10/17: Paced at 50bpm. Feeling okay today. Review of Systems Cardiovascular: Cardiovascular: Reports as per HPI Exam Const: General: no acute distress HENMT: Mouth: Yes moist mucous membranes Eyes: General: appearance normal, both eyes and all related structures Sclera: sclerae normal Resp: Effort & Inspection: normal respiratory effort Cardio: Rate: regular rate Rhythm: regular rhythm Skin: General skin exam: normal color Neuro: Speech: normal speech Psych: Mental Status: mental status grossly normal Affect: normal affect Objective Data Vital Signs Vital Signs: Vital Signs - 24 hr 10/16/24 12:15 10/16/24 12:27 10/16/24 12:30 Temperature Pulse Rate 50 L 50 L 50 L Pulse Rate [Right Pedal (Dorsalis Pedis) Palpation] Respiratory Rate 144 H 15 16 Blood Pressure 132/59 L 119/61 125/65 Pulse Oximetry 100 100 99 Oxygen Delivery Oxygen Flow Rate Fraction of Inspired Oxygen 10/16/24 12:45 10/16/24 13:00 10/16/24 13:30 Temperature Pulse Rate 50 L 50 L 50 L Pulse Rate [Right Pedal (Dorsalis Pedis) Palpation] Respiratory Rate 15 12 12 Blood Pressure 126/57 L 124/57 L 135/52 L Pulse Oximetry 99 100 99 Oxygen Delivery Oxygen Flow Rate Fraction of Inspired Oxygen 10/16/24 14:00 10/16/24 14:00 10/16/24 15:00 Temperature Pulse Rate 50 L 50 L 50 L Pulse Rate [Right Pedal (Dorsalis Pedis) Palpation] Respiratory Rate 16 12 Blood Pressure 133/53 L 133/64 Pulse Oximetry 100 100 Oxygen Delivery Oxygen Flow Rate Fraction of Inspired Oxygen 10/16/24 16:00 10/16/24 16:00 10/16/24 16:00 Temperature 36.9 C Pulse Rate 50 L 50 L Pulse Rate [Right Pedal (Dorsalis Pedis) Palpation] Respiratory Rate 15 Blood Pressure 133/70 Pulse Oximetry 100 100 Oxygen Delivery Nasal Cannula Oxygen Flow Rate 2 Fraction of Inspired Oxygen 10/16/24 16:00 10/16/24 17:00 10/16/24 17:00 Temperature Pulse Rate 50 L 50 L 50 L Pulse Rate [Right Pedal (Dorsalis Pedis) Palpation] Respiratory Rate 15 11 L 14 Blood Pressure 133/70 139/54 L 139/54 L Pulse Oximetry 100 96 96 Oxygen Delivery Oxygen Flow Rate Fraction of Inspired Oxygen 10/16/24 18:00 10/16/24 18:00 10/16/24 18:00 Temperature 36.9 C Pulse Rate 50 L 50 L 50 L Pulse Rate [Right Pedal (Dorsalis Pedis) Palpation] Respiratory Rate 15 15 Blood Pressure 141/57 H 141/57 H Pulse Oximetry 100 99 Oxygen Delivery Oxygen Flow Rate Fraction of Inspired Oxygen 10/16/24 19:00 10/16/24 20:00 10/16/24 20:00 Temperature 36.7 C 36.7 C Pulse Rate 50 L 50 L Pulse Rate [Right Pedal (Dorsalis Pedis) Palpation] Respiratory Rate 12 15 Blood Pressure 134/50 L 140/63 Pulse Oximetry 99 99 99 Oxygen Delivery Nasal Cannula Oxygen Flow Rate 2 Fraction of Inspired Oxygen 10/16/24 20:00 10/16/24 20:00 10/16/24 21:00 Temperature 36.6 C Pulse Rate 50 L 50 L Pulse Rate [Right Pedal (Dorsalis Pedis) Palpation] 50 L Respiratory Rate 14 Blood Pressure 139/55 L Pulse Oximetry 99 Oxygen Delivery Oxygen Flow Rate Fraction of Inspired Oxygen 10/16/24 21:21 10/16/24 22:00 10/16/24 22:00 Temperature 36.8 C Pulse Rate 50 L 50 L Pulse Rate [Right Pedal (Dorsalis Pedis) Palpation] Respiratory Rate 16 Blood Pressure 116/47 L Pulse Oximetry 99 97 Oxygen Delivery Nasal Cannula Oxygen Flow Rate 2 Fraction of Inspired Oxygen 28 10/17/24 00:00 10/17/24 00:00 10/17/24 00:00 Temperature Pulse Rate 58 L Pulse Rate [Right Pedal (Dorsalis Pedis) Palpation] 63 Respiratory Rate Blood Pressure Pulse Oximetry 97 Oxygen Delivery Nasal Cannula Oxygen Flow Rate 2 Fraction of Inspired Oxygen 10/17/24 00:00 10/17/24 02:00 10/17/24 02:00 Temperature 36.8 C 36.7 C Pulse Rate 63 50 L 50 L Pulse Rate [Right Pedal (Dorsalis Pedis) Palpation] Respiratory Rate 13 16 Blood Pressure 101/48 L 115/56 L Pulse Oximetry 97 98 Oxygen Delivery Oxygen Flow Rate Fraction of Inspired Oxygen 10/17/24 04:00 10/17/24 04:00 10/17/24 04:00 Temperature 36.8 C Pulse Rate 50 L 50 L Pulse Rate [Right Pedal (Dorsalis Pedis) Palpation] Respiratory Rate 12 Blood Pressure 103/46 L Pulse Oximetry 97 97 Oxygen Delivery Nasal Cannula Oxygen Flow Rate 2 Fraction of Inspired Oxygen 10/17/24 04:00 10/17/24 06:00 10/17/24 06:00 Temperature 37.1 C Pulse Rate 50 L 50 L Pulse Rate [Right Pedal (Dorsalis Pedis) Palpation] 60 Respiratory Rate 13 Blood Pressure 104/44 L Pulse Oximetry 99 Oxygen Delivery Oxygen Flow Rate Fraction of Inspired Oxygen 10/17/24 08:00 Temperature Pulse Rate 50 L Pulse Rate [Right Pedal (Dorsalis Pedis) Palpation] Respiratory Rate 14 Blood Pressure Pulse Oximetry 96 Oxygen Delivery Nasal Cannula Oxygen Flow Rate 2 Fraction of Inspired Oxygen Intake/Output Intake/Output: Intake & Output 10/14/24 10/15/24 10/16/24 10/17/24 23:59 23:59 23:59 23:59 Intake Total 2240 640 Output Total 800 Balance 2240 -160 Meds/Results Medications: Active Medications Generic Name Dose Route Start Last Admin Trade Name Freq PRN Reason Stop Dose Admin Acetaminophen 650 mg 10/16/24 03:43 10/16/24 20:15 Acetaminophen 325 Mg Tablet PO 650 mg Q4H PRN Administration Mild Pain (1-3) or Fever Aspirin 81 mg 10/16/24 12:00 10/17/24 09:20 Aspirin 81 Mg Chewable Tablet PO 81 mg DAILY@0800 GAVIN Administration Atorvastatin Calcium 10 mg 10/16/24 21:00 10/16/24 20:14 Atorvastatin 10 Mg Tablet BY MOUTH 10 mg QHS GAVIN Administration Dextrose 12.5 gm 10/16/24 13:19 Dextrose 50% 25 Gm/50 Ml Syringe IV PUSH PRN PRN Hypoglycemia Protocol Enoxaparin Sodium 40 mg 10/17/24 11:15 10/17/24 11:36 Enoxaparin 40 Mg/0.4 Ml Syringe SUB-Q 40 mg DAILY GAVIN Administration Gabapentin 100 mg 10/16/24 21:00 10/16/24 20:14 Gabapentin 100 Mg Capsule PO 100 mg HS GAVIN Administration Glucagon 1 mg 10/16/24 13:19 Glucagon For Inj 1 Mg Vial IM PRN PRN Hypoglycemia Protocol Glucose 15 gm 10/16/24 13:19 Glucose Oral Gel 15 Gm Of Glucse In 37.5 Gm Tube PO PRN PRN Hypoglycemia Protocol Dextrose 1,000 mls @ 100 mls/hr 10/16/24 13:19 Dextrose 5% 1,000 Ml IVPB PRN PRN Hypoglycemia Protocol Insulin Aspart 3 - 6 units 10/16/24 17:00 10/17/24 11:35 Insulin Aspart (*Bkc) 100 Units/Ml SUB-Q 3 units TIDWM GAVIN Administration Protocol Insulin Aspart 1 - 3 units 10/16/24 21:00 10/16/24 20:15 Insulin Aspart (*Bkc) 100 Units/Ml SUB-Q Not Given HS [facility] Protocol Morphine Sulfate 2 mg 10/16/24 03:43 10/17/24 02:12 Morphine Sulfate (*Crx) 2 Mg/Ml Inj IV PUSH 2 mg Q2H PRN Administration Pain Rated 7-10 Ondansetron HCl 4 mg 10/16/24 03:43 10/16/24 21:22 Ondansetron Inj 4 Mg/2 Ml Vial IV PUSH 4 mg Q4H PRN Administration Nausea Radiology Results: ITS Impressions Chest X-Ray 10/16/24 07:36 Impression: No definite acute abnormality. COPD and/or bibasilar chronic interstitial change. Labs Labs: Laboratory Results - last 24 hr 10/16/24 10/16/24 10/16/24 14:11 17:41 20:14 WBC RBC Hgb Hct MCV MCH MCHC RDW Plt Count MPV Immature Gran % (Auto) Neut % (Auto) Lymph % (Auto) Stephen[place] % (Auto) Eos % (Auto) Baso % (Auto) Lymph # (Auto) [place] # (Auto) Eos # (Auto) Baso # (Auto) Abs Immat Gran (auto) Absolute Neuts (auto) Absolute Nucleated RBC Nucleated RBC % PT INR APTT Sodium Potassium Chloride Carbon Dioxide Anion Gap BUN Creatinine Estim Creat Clear Calc Estimated GFR Glucose POC Capillary Glucose 127 H 138 H Calcium Phosphorus Magnesium Nasal MRSA (PCR) Not detected 10/16/24 10/17/24 10/17/24 22:07 04:21 08:38 WBC 9.8 RBC 3.72 L Hgb 11.7 L Hct 35.6 L MCV 95.7 MCH 31.5 MCHC 32.9 RDW 13.8 Plt Count 165 MPV 9.6 Immature Gran % (Auto) 0.6 H Neut % (Auto) 77.4 H Lymph % (Auto) 14.1 L Stephenson % (Auto) 6.6 Eos % (Auto) 0.9 Baso % (Auto) 0.4 Lymph # (Auto) 1.38 Stephenson # (Auto) 0.7 H Eos # (Auto) 0.1 Baso # (Auto) 0.0 Abs Immat Gran (auto) 0.06 H Absolute Neuts (auto) 7.6 H Absolute Nucleated RBC 0.000 Nucleated RBC % 0.0 PT 15.2 H INR 1.2 APTT 32.4 Sodium 139 Potassium 4.1 Chloride 107 Carbon Dioxide 25 Anion Gap 7 BUN 11 Creatinine 0.64 L Estim Creat Clear Calc 66 Estimated GFR > 60 Glucose 169 H POC Capillary Glucose 149 H 175 H Calcium 8.3 L Phosphorus 3.6 Magnesium 1.9 Nasal MRSA (PCR) 10/17/24 11:28 WBC RBC Hgb Hct MCV MCH MCHC RDW Plt Count MPV Immature Gran % (Auto) Neut % (Auto) Lymph % (Auto) Stephenson % (Auto) Eos % (Auto) Baso % (Auto) Lymph # (Auto) Stephenson # (Auto) Eos # (Auto) Baso # (Auto) Abs Immat Gran (auto) Absolute Neuts (auto) Absolute Nucleated RBC Nucleated RBC % PT INR APTT Sodium Potassium Chloride Carbon Dioxide Anion Gap BUN Creatinine Estim Creat Clear Calc Estimated GFR Glucose POC Capillary Glucose 220 H Calcium Phosphorus Magnesium Nasal MRSA (PCR)
[2024-10-17] MEDS: ACETAMINOPHEN 325 MG TABLET 650 MG PO ×2 (16:48→20:18)
[2024-10-17 17:09] LABS: Glucose Point of Care 213 mg/dl (65-105)
--- NOTE | 2024-10-17 17:46 | PM.IMPN ---
Progress Note: A&P Assessment and Plan (1) Complete heart block: Code(s): I44.2 - Atrioventricular block, complete Status: Acute (2) Non-ST elevation CA (NSTEMI): Code(s): I21.4 - Non-ST elevation (NSTEMI) myocardial infarction Status: Acute (3) DM2 (diabetes mellitus, type 2): Code(s): E11.9 - Type 2 diabetes mellitus without complications Status: Chronic (4) Essential (primary) hypertension: Code(s): I10 - Essential (primary) hypertension Status: Chronic Plan Patient is 83-year-old female had been having chest discomfort for last few months however last night the pain woke up the patient from sleep and patient presented emergency department for further evaluation, patient EKG showed patient had a complete heart block patient was seen by diesel tractor engine mechanic and recommending patient will need pacemaker, patient was taken to the labor trainer and temporary pacemaker and CXR was normal, today patient was seen by her diesel tractor engine mechanic, today patient had a cardiac ECHO, which showed reduced EF 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 will continue to monitor and further recommendation to follow. Subjective Date/time seen: 10/17/24 17:46 Interval history: Patient is 83-year-old female had been having chest discomfort for last few months however last night the pain woke up the patient from sleep and patient presented emergency department for further evaluation, patient EKG showed patient had a complete heart block patient was seen by diesel tractor engine mechanic and recommending patient will need pacemaker, patient was taken to the labor trainer and temporary pacemaker and CXR was normal, today patient was seen by her diesel tractor engine mechanic, today patient had a cardiac ECHO, which showed reduced EF 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 will continue to monitor and further recommendation to follow. Review of Systems Review of Systems: All systems reviewed & are unremarkable except as noted in HPI and below Exam Narrative: Patient is comfortable, NAD HEENT: eyes are clear and none icteric LUNGS:CTA HEART: RR S1S2 ABD: BS+, Soft and nontender Lower extremities: no edema SKIN: nonjaundiced Neuro: grossly intact. Objective Data Vital Signs Vital Signs: Vital Signs - 24 hr 10/16/24 18:00 10/16/24 18:00 10/16/24 18:00 Temperature 36.9 C Pulse Rate 50 L 50 L 50 L Pulse Rate [Right Pedal (Dorsalis Pedis) Palpation] Respiratory Rate 15 15 Blood Pressure 141/57 H 141/57 H Pulse Oximetry 100 99 Oxygen Delivery Oxygen Flow Rate Fraction of Inspired Oxygen 10/16/24 19:00 10/16/24 20:00 10/16/24 20:00 Temperature 36.7 C 36.7 C Pulse Rate 50 L 50 L Pulse Rate [Right Pedal (Dorsalis Pedis) Palpation] Respiratory Rate 12 15 Blood Pressure 134/50 L 140/63 Pulse Oximetry 99 99 99 Oxygen Delivery Nasal Cannula Oxygen Flow Rate 2 Fraction of Inspired Oxygen 10/16/24 20:00 10/16/24 20:00 10/16/24 21:00 Temperature 36.6 C Pulse Rate 50 L 50 L Pulse Rate [Right Pedal (Dorsalis Pedis) Palpation] 50 L Respiratory Rate 14 Blood Pressure 139/55 L Pulse Oximetry 99 Oxygen Delivery Oxygen Flow Rate Fraction of Inspired Oxygen 10/16/24 21:21 10/16/24 22:00 10/16/24 22:00 Temperature 36.8 C Pulse Rate 50 L 50 L Pulse Rate [Right Pedal (Dorsalis Pedis) Palpation] Respiratory Rate 16 Blood Pressure 116/47 L Pulse Oximetry 99 97 Oxygen Delivery Nasal Cannula Oxygen Flow Rate 2 Fraction of Inspired Oxygen 10/17/24 00:00 10/17/24 00:00 10/17/24 00:00 Temperature Pulse Rate 58 L Pulse Rate [Right Pedal (Dorsalis Pedis) Palpation] 63 Respiratory Rate Blood Pressure Pulse Oximetry 97 Oxygen Delivery Nasal Cannula Oxygen Flow Rate 2 Fraction of Inspired Oxygen 10/17/24 00:00 10/17/24 02:00 10/17/24 02:00 Temperature 36.8 C 36.7 C Pulse Rate 63 50 L 50 L Pulse Rate [Right Pedal (Dorsalis Pedis) Palpation] Respiratory Rate 13 16 Blood Pressure 101/48 L 115/56 L Pulse Oximetry 97 98 Oxygen Delivery Oxygen Flow Rate Fraction of Inspired Oxygen 10/17/24 04:00 10/17/24 04:00 10/17/24 04:00 Temperature 36.8 C Pulse Rate 50 L 50 L Pulse Rate [Right Pedal (Dorsalis Pedis) Palpation] Respiratory Rate 12 Blood Pressure 103/46 L Pulse Oximetry 97 97 Oxygen Delivery Nasal Cannula Oxygen Flow Rate 2 Fraction of Inspired Oxygen 10/17/24 04:00 10/17/24 06:00 10/17/24 06:00 Temperature 37.1 C Pulse Rate 50 L 50 L Pulse Rate [Right Pedal (Dorsalis Pedis) Palpation] 60 Respiratory Rate 13 Blood Pressure 104/44 L Pulse Oximetry 99 Oxygen Delivery Oxygen Flow Rate Fraction of Inspired Oxygen 10/17/24 08:00 10/17/24 08:00 10/17/24 08:00 Temperature Pulse Rate 50 L 50 L Pulse Rate [Right Pedal (Dorsalis Pedis) Palpation] 50 L Respiratory Rate 14 Blood Pressure Pulse Oximetry 96 Oxygen Delivery Nasal Cannula Oxygen Flow Rate 2 Fraction of Inspired Oxygen 10/17/24 08:00 10/17/24 10:00 10/17/24 10:00 Temperature 37.2 C Pulse Rate 50 L 50 L 50 L Pulse Rate [Right Pedal (Dorsalis Pedis) Palpation] Respiratory Rate 12 18 Blood Pressure 120/52 L 115/46 L Pulse Oximetry 100 100 Oxygen Delivery Oxygen Flow Rate Fraction of Inspired Oxygen 10/17/24 12:00 10/17/24 12:00 10/17/24 12:00 Temperature Pulse Rate 53 L 50 L Pulse Rate [Right Pedal (Dorsalis Pedis) Palpation] 50 L Respiratory Rate 15 Blood Pressure Pulse Oximetry 100 Oxygen Delivery Nasal Cannula Oxygen Flow Rate 2 Fraction of Inspired Oxygen 10/17/24 12:00 10/17/24 14:00 10/17/24 14:00 Temperature Pulse Rate 50 L 51 L 52 L Pulse Rate [Right Pedal (Dorsalis Pedis) Palpation] Respiratory Rate 12 17 Blood Pressure 120/52 L 125/47 L Pulse Oximetry 100 96 Oxygen Delivery Oxygen Flow Rate Fraction of Inspired Oxygen 10/17/24 16:00 10/17/24 16:00 Temperature Pulse Rate 52 L 52 L Pulse Rate [Right Pedal (Dorsalis Pedis) Palpation] Respiratory Rate 13 Blood Pressure 128/45 L Pulse Oximetry 100 Oxygen Delivery Oxygen Flow Rate Fraction of Inspired Oxygen Intake/Output Intake/Output: Intake & Output 10/14/24 10/15/24 10/16/24 10/17/24 23:59 23:59 23:59 23:59 Intake Total 2240 1000 Output Total 800 Balance 2240 200 Meds/Results Medications: Active Medications Generic Name Dose Route Start Last Admin Trade Name Freq PRN Reason Stop Dose Admin Acetaminophen 650 mg 10/16/24 03:43 10/17/24 16:48 Acetaminophen 325 Mg Tablet PO 650 mg Q4H PRN Administration Mild Pain (1-3) or Fever Aspirin 81 mg 10/16/24 12:00 10/17/24 09:20 Aspirin 81 Mg Chewable Tablet PO 81 mg DAILY@0800 GAVIN Administration Atorvastatin Calcium 10 mg 10/16/24 21:00 10/16/24 20:14 Atorvastatin 10 Mg Tablet BY MOUTH 10 mg QHS GAVIN Administration Dextrose 12.5 gm 10/16/24 13:19 Dextrose 50% 25 Gm/50 Ml Syringe IV PUSH PRN PRN Hypoglycemia Protocol Enoxaparin Sodium 40 mg 10/17/24 11:15 10/17/24 11:36 Enoxaparin 40 Mg/0.4 Ml Syringe SUB-Q 40 mg DAILY GAVIN Administration Gabapentin 100 mg 10/16/24 21:00 10/16/24 20:14 Gabapentin 100 Mg Capsule PO 100 mg HS GAVIN Administration Glucagon 1 mg 10/16/24 13:19 Glucagon For Inj 1 Mg Vial IM PRN PRN Hypoglycemia Protocol Glucose 15 gm 10/16/24 13:19 Glucose Oral Gel 15 Gm Of Glucse In 37.5 Gm Tube PO PRN PRN Hypoglycemia Protocol Dextrose 1,000 mls @ 100 mls/hr 10/16/24 13:19 Dextrose 5% 1,000 Ml IVPB PRN PRN Hypoglycemia Protocol Insulin Aspart 3 - 6 units 10/16/24 17:00 10/17/24 16:48 Insulin Aspart (*Bkc) 100 Units/Ml SUB-Q 3 units TIDWM GAVIN Administration Protocol Insulin Aspart 1 - 3 units 10/16/24 21:00 10/16/24 20:15 Insulin Aspart (*Bkc) 100 Units/Ml SUB-Q Not Given HS [facility] Protocol Morphine Sulfate 2 mg 10/16/24 03:43 10/17/24 16:54 Morphine Sulfate (*Crx) 2 Mg/Ml Inj IV PUSH 2 mg Q2H PRN Administration Pain Rated 7-10 Ondansetron HCl 4 mg 10/16/24 03:43 10/16/24 21:22 Ondansetron Inj 4 Mg/2 Ml Vial IV PUSH 4 mg Q4H PRN Administration Nausea Radiology Results: ITS Impressions Chest X-Ray 10/16/24 07:36 Impression: No definite acute abnormality. COPD and/or bibasilar chronic interstitial change. Labs Labs: Laboratory Results - last 24 hr 10/16/24 10/16/24 10/17/24 20:14 22:07 04:21 WBC 9.8 RBC 3.72 L Hgb 11.7 L Hct 35.6 L MCV 95.7 MCH 31.5 MCHC 32.9 RDW 13.8 Plt Count 165 MPV 9.6 Immature Gran % (Auto) 0.6 H Neut % (Auto) 77.4 H Lymph % (Auto) 14.1 L [place] % (Auto) 6.6 Eos % (Auto) 0.9 Baso % (Auto) 0.4 Lymph # (Auto) 1.38 [place] # (Auto) 0.7 H Eos # (Auto) 0.1 Baso # (Auto) 0.0 Abs Immat Gran (auto) 0.06 H Absolute Neuts (auto) 7.6 H Absolute Nucleated RBC 0.000 Nucleated RBC % 0.0 PT 15.2 H INR 1.2 APTT 32.4 Sodium 139 Potassium 4.1 Chloride 107 Carbon Dioxide 25 Anion Gap 7 BUN 11 Creatinine 0.64 L Estim Creat Clear Calc 66 Estimated GFR > 60 Glucose 169 H POC Capillary Glucose 138 H 149 H Calcium 8.3 L Phosphorus 3.6 Magnesium 1.9 10/17/24 10/17/24 10/17/24 08:38 11:28 16:47 WBC RBC Hgb Hct MCV MCH MCHC RDW Plt Count MPV Immature Gran % (Auto) Neut % (Auto) Lymph % (Auto) [place] % (Auto) Eos % (Auto) Baso % (Auto) Lymph # (Auto) [place] # (Auto) Eos # (Auto) Baso # (Auto) Abs Immat Gran (auto) Absolute Neuts (auto) Absolute Nucleated RBC Nucleated RBC % PT INR APTT Sodium Potassium Chloride Carbon Dioxide Anion Gap BUN Creatinine Estim Creat Clear Calc Estimated GFR Glucose POC Capillary Glucose 175 H 220 H 213 H Calcium Phosphorus Magnesium
[2024-10-17] MEDS: GABAPENTIN 100 MG CAPSULE PO (20:06)
[2024-10-17] MEDS: ATORVASTATIN 10 MG TABLET BY MOUTH (20:06)
[2024-10-17 20:21] LABS: Glucose Point of Care 211 mg/dl (65-105)
[2024-10-18] VITALS (17 sets, daily range): BP systolic 98–146; BP diastolic 35–94; PULSE 50–72; RESP 12–18; TEMP 36.6–37.4; O2SAT 93–100
[2024-10-18 01:58] LABS: Glucose Point of Care 167 mg/dl (65-105)
[2024-10-18 04:33] LABS: Hematocrit 33.6 % (37.0-47.0); Hemoglobin 11.1 g/dL (12.0-15.0); Mean Corpuscular Hemoglobin 31.6 pg (26-34); Mean Corpuscular Volume 95.7 fl (80-100); Mean Platelet Volume 9.8 fl (7.4-10.4); Platelet Count Result 125 k/mm3 (150-375); Red Blood Count 3.51 M/mm3 (4.2-5.4); Red Cell Distribution Width 13.8 % (11.5-14.5); White Blood Count 8.9 K/mm3 (4.5-10.0)
[2024-10-18 04:42] LABS: Anion Gap 5 mmol/L (4-12); Blood Urea Nitrogen 10 mg/dL (7-17); Calcium 7.9 mg/dL (8.4-10.2); Carbon Dioxide 27 mmol/L (22-30); Chloride 105 mmol/L (98-107); Estimated CRCL calculation 64 ml/min; Estimated Glomerular Filt Rate > 60; Glucose 194 mg/dL (65-110); Potassium 3.8 mmol/L (3.4-5.0); Sodium 137 mmol/L (137-145)
[2024-10-18] MEDS: MORPHINE SULFATE (*CRX) 2 MG/ML INJ IV PUSH (06:38)
--- NOTE | 2024-10-18 06:58 | PC.NURSE ---
Patient off unit to solder making laborer via bed.
--- NOTE | 2024-10-18 07:16 | P.SEDATION_ITS ---
Moderate Sedation Note-Pt Data Patient Data Diagnosis: Acquired complete heart block Present Complaint: Chest pain, lightheadedness Procedure to be performed/Plan: Implantation of pacemaker Allergies Allergy/AdvReac Type Severity Reaction Status Date / Time povidone-iodine (From AdvReac Intermediate BAD RASH Verified 10/16/24 12:26 Betadine) soap (From Betadine) AdvReac Intermediate BAD RASH Verified 10/16/24 12:26 erythromycin base AdvReac Mild Nausea Verified 10/16/24 12:26 meperidine (From Demerol) AdvReac Mild Nausea and Verified 10/16/24 12:26 Vomiting Home Medications ?Medication ?Instructions ?Recorded ?Confirmed ?Type cholecalciferol (vitamin D3) 50 100 mcg PO BID 02/13/20 10/16/24 History mcg (2,000 unit) capsule glucagon 1 mg injection kit 1 mg .Route PRN PRN Hyperglycemia 02/27/20 10/16/24 History insulin NPH isoph U-100 human 100 See Rx Instructions .Route .COMPLEX 02/27/20 10/16/24 History unit/mL subcutaneous suspension (Novolin N NPH U-100 Insulin isophane) insulin aspart U-100 100 unit/mL 36.95 unit subcut DAILY 02/27/20 10/16/24 History subcutaneous solution (Novolog U-100 Insulin aspart) tizanidine 4 mg tablet 4 mg PO TID PRN muscle spasticity 05/27/20 10/16/24 Rx #90 tabs liraglutide 0.6 mg/0.1 mL (18 mg/3 See Rx Instructions subcut .COMPLEX 09/16/20 10/16/24 History mL) subcutaneous pen injector (Victoza 2-Khadar) multivitamin (Daily Multi-Vitamin 1 tablet PO DAILY 09/16/20 10/16/24 History tablet) omega-3 fatty acids 100 mg 100 mg PO DAILY 09/16/20 10/16/24 History chewable tablet vitamin B complex (B 2 tablet PO DAILY 09/16/20 10/16/24 History Complex-Vitamin B12 tablet) losartan 50 mg tablet See Rx Instructions .Route 11/04/20 10/16/24 Rx .COMPLEX #90 tabs furosemide 20 mg tablet See Rx Instructions .Route 11/26/20 10/16/24 Rx .COMPLEX #90 tabs atorvastatin 10 mg tablet See Rx Instructions .Route 05/28/21 10/16/24 Rx .COMPLEX #90 tabs calcium acetate 667 mg tablet 1,334 mg PO DAILY 10/16/24 10/16/24 History diphenhydramine HCl 25 mg capsule 25 mg PO HS PRN sleep 10/16/24 10/16/24 History (Benadryl) gabapentin 100 mg capsule 100 mg PO HS 10/16/24 10/16/24 History magnesium 30 mg tablet 30 mg PO BID 10/16/24 10/16/24 History Current Medications: Active Medications Acetaminophen (Acetaminophen 325 Mg Tablet) 650 mg PO Q4H PRN PRN Reason: Mild Pain (1-3) or Fever Last Admin: 10/17/24 20:18 Dose: 650 mg Aspirin (Aspirin 81 Mg Chewable Tablet) 81 mg PO DAILY@0800 [facility] Last Admin: 10/17/24 09:20 Dose: 81 mg Atorvastatin Calcium (Atorvastatin 10 Mg Tablet) 10 mg BY MOUTH QHS GAVIN Last Admin: 10/17/24 20:06 Dose: 10 mg Dextrose (Dextrose 50% 25 Gm/50 Ml Syringe) 12.5 gm IV PUSH PRN PRN; Protocol PRN Reason: Hypoglycemia Enoxaparin Sodium (Enoxaparin 40 Mg/0.4 Ml Syringe) 40 mg SUB-Q DAILY [facility] Last Admin: 10/17/24 11:36 Dose: 40 mg Gabapentin (Gabapentin 100 Mg Capsule) 100 mg PO HS [facility] Last Admin: 10/17/24 20:06 Dose: 100 mg Glucagon (Glucagon For Inj 1 Mg Vial) 1 mg IM PRN PRN; Protocol PRN Reason: Hypoglycemia Glucose (Glucose Oral Gel 15 Gm Of Glucse In 37.5 Gm Tube) 15 gm PO PRN PRN; Protocol PRN Reason: Hypoglycemia Dextrose (Dextrose 5% 1,000 Ml) 1,000 mls @ 100 mls/hr IVPB PRN PRN; Protocol PRN Reason: Hypoglycemia Insulin Aspart (Insulin Aspart (*Bkc) 100 Units/Ml) 1 - 3 units SUB-Q HS [facility]; Protocol Last Admin: 10/17/24 20:05 Dose: 1 units Insulin Aspart (Insulin Aspart (*Bkc) 100 Units/Ml) 3 - 6 units SUB-Q Q6HR GAVIN; Protocol Last Admin: 10/18/24 06:30 Dose: Not Given Morphine Sulfate (Morphine Sulfate (*Crx) 2 Mg/Ml Inj) 2 mg IV PUSH Q2H PRN PRN Reason: Pain Rated 7-10 Last Admin: 10/18/24 06:38 Dose: 2 mg Ondansetron HCl (Ondansetron Inj 4 Mg/2 Ml Vial) 4 mg IV PUSH Q4H PRN PRN Reason: Nausea Last Admin: 10/16/24 21:22 Dose: 4 mg Sedation/Anesthesia: No previous sedation/anesthesia problems (including family history). [facility] Past Medical History Medical History DM2 (diabetes mellitus, type 2) Macular degeneration Diabetic retinopathy Obesity Lumbar radiculopathy Acute seasonal allergic rhinitis DM w/o complication type II, uncontrolled Essential (primary) hypertension Gastro-esophageal reflux disease without esophagitis Hereditary and idiopathic neuropathy, unspecified Major depressive disorder, single episode, unspecified Symptomatic menopausal or female climacteric states Mixed hyperlipidemia History of nummular eczema Other specified diabetes mellitus with diabetic neuropathy, unspecified Primary central sleep apnea Restless legs syndrome Type 2 diabetes mellitus without complications Benign essential hypertension with target blood pressure below 140/90 Organic sleep apnea, unspecified Vitamin D deficiency, unspecified Surgical History Surgical History S/P total knee arthroplasty On the left History of left knee surgery (~2009) History of cholecystectomy (~1989) History of hysterectomy (~1983) Family History Family History Grandparent Diabetes mellitus Family history of kidney disease Father Hypertension Family history of coronary artery disease Family history of elevated blood lipids Family history of cardiovascular disease Unknown Arthritis Parkinsons Other Acute myocardial infarction Social History Social History Social History: She is a retired high school nurse. She lives with her who is a durable power energy attorney for healthcare. The patient desires to be a full code. She has 4 children. She is a lifelong nonsmoker. rarely drinks. She does not use any marijuana or illicit drugs. Smoking status: Never smoker Additional smoking assessment comments: DENIES ANY FORM OF TOBACCO USE Alcohol intake: never Alcohol use details: ONE DRINK PER MONTH Substance use: never Substance use type: does not use Last use: special occasions has a drink Do You Feel Safe in your Home?: Yes Lack of Transportation: No Lack of Food: Never True Current Housing: I Have Housing Concerned About Future Housing: No Difficulty Paying Gas/Electric Bills: No Difficulty Paying for Meds: No Currently Unemployed: No Education: Associate Degree Difficulty w/ Childcare or Family Care: No Living arrangements: with family Gender identity (if verbalized by the patient): Female Spiritual care concerns: No Mod Sed Physical Exam Physical Exam Pre Procedural Exam: Normal: Throat, Airway, Lungs, Heart Size, Neuro Exam and Extremities and Variation: Appearance (Pleasant obese elderly lady), Heart Rate (Heart rate 50) and Heart Rhythm Hours since solid foods: 12 Hours since liquid intake: 12 Mallampati Classification: class II Internal Medicine - PN: Obj Da Vital Signs Vital Signs: Vital Signs - 24 hr 10/17/24 08:00 10/17/24 08:00 10/17/24 08:00 Temperature Pulse Rate 50 L 50 L Pulse Rate [Right Pedal (Dorsalis Pedis) Palpation] 50 L Respiratory Rate 14 Blood Pressure Pulse Oximetry 96 Oxygen Delivery Nasal Cannula Oxygen Flow Rate 2 10/17/24 08:00 10/17/24 10:00 10/17/24 10:00 Temperature 37.2 C Pulse Rate 50 L 50 L 50 L Pulse Rate [Right Pedal (Dorsalis Pedis) Palpation] Respiratory Rate 12 18 Blood Pressure 120/52 L 115/46 L Pulse Oximetry 100 100 Oxygen Delivery Oxygen Flow Rate 10/17/24 12:00 10/17/24 12:00 10/17/24 12:00 Temperature Pulse Rate 53 L 50 L Pulse Rate [Right Pedal (Dorsalis Pedis) Palpation] 50 L Respiratory Rate 15 Blood Pressure Pulse Oximetry 100 Oxygen Delivery Room Air Oxygen Flow Rate 10/17/24 12:00 10/17/24 14:00 10/17/24 14:00 Temperature Pulse Rate 50 L 51 L 52 L Pulse Rate [Right Pedal (Dorsalis Pedis) Palpation] Respiratory Rate 12 17 Blood Pressure 120/52 L 125/47 L Pulse Oximetry 100 96 Oxygen Delivery Oxygen Flow Rate 10/17/24 16:00 10/17/24 16:00 10/17/24 16:00 Temperature Pulse Rate 52 L 52 L 56 L Pulse Rate [Right Pedal (Dorsalis Pedis) Palpation] Respiratory Rate 13 150 H Blood Pressure 128/45 L Pulse Oximetry 100 98 Oxygen Delivery Nasal Cannula Oxygen Flow Rate 2 10/17/24 18:00 10/17/24 18:00 10/17/24 20:00 Temperature 37.6 C H Pulse Rate 52 L 53 L 59 L Pulse Rate [Right Pedal (Dorsalis Pedis) Palpation] Respiratory Rate 15 15 Blood Pressure 122/42 L 122/47 L Pulse Oximetry 97 97 Oxygen Delivery Oxygen Flow Rate 10/17/24 20:00 10/17/24 20:00 10/17/24 20:00 Temperature Pulse Rate 66 66 Pulse Rate [Right Pedal (Dorsalis Pedis) Palpation] 66 Respiratory Rate 16 Blood Pressure Pulse Oximetry 97 Oxygen Delivery Nasal Cannula Oxygen Flow Rate 2 10/17/24 20:28 10/17/24 22:00 10/17/24 22:00 Temperature 37.4 C Pulse Rate 55 L 55 L Pulse Rate [Right Pedal (Dorsalis Pedis) Palpation] Respiratory Rate 18 Blood Pressure 116/48 L Pulse Oximetry 98 98 Oxygen Delivery Oxygen Flow Rate 10/18/24 00:00 10/18/24 00:00 10/18/24 00:00 Temperature 37.1 C Pulse Rate 50 L 50 L Pulse Rate [Right Pedal (Dorsalis Pedis) Palpation] 50 L Respiratory Rate 12 12 Blood Pressure 98/38 L Pulse Oximetry 98 98 Oxygen Delivery Nasal Cannula Oxygen Flow Rate 2 10/18/24 00:00 10/18/24 02:00 10/18/24 02:00 Temperature 37.2 C Pulse Rate 50 L 50 L 50 L Pulse Rate [Right Pedal (Dorsalis Pedis) Palpation] Respiratory Rate 18 Blood Pressure 107/37 L Pulse Oximetry 98 Oxygen Delivery Oxygen Flow Rate 10/18/24 04:00 10/18/24 04:00 10/18/24 04:00 Temperature 37.4 C Pulse Rate 50 L 50 L Pulse Rate [Right Pedal (Dorsalis Pedis) Palpation] 50 L Respiratory Rate 17 17 Blood Pressure 114/35 L Pulse Oximetry 96 96 Oxygen Delivery Nasal Cannula Oxygen Flow Rate 2 10/18/24 04:00 10/18/24 06:00 10/18/24 06:00 Temperature 37.3 C Pulse Rate 50 L 50 L 50 L Pulse Rate [Right Pedal (Dorsalis Pedis) Palpation] Respiratory Rate 16 Blood Pressure 115/94 H Pulse Oximetry 97 Oxygen Delivery Oxygen Flow Rate Intake/Output Intake/Output: Intake & Output 10/15/24 10/16/24 10/17/24 10/18/24 23:59 23:59 23:59 23:59 Intake Total 2240 1480 600 Output Total 1450 1500 Balance 2240 30 -900 Meds/Results Medications: Active Medications Generic Name Dose Route Start Last Admin Trade Name Freq PRN Reason Stop Dose Admin Acetaminophen 650 mg 10/16/24 03:43 10/17/24 20:18 Acetaminophen 325 Mg Tablet PO 650 mg Q4H PRN Administration Mild Pain (1-3) or Fever Aspirin 81 mg 10/16/24 12:00 10/17/24 09:20 Aspirin 81 Mg Chewable Tablet PO 81 mg DAILY@0800 GAVIN Administration Atorvastatin Calcium 10 mg 10/16/24 21:00 10/17/24 20:06 Atorvastatin 10 Mg Tablet BY MOUTH 10 mg QHS GAVIN Administration Dextrose 12.5 gm 10/16/24 13:19 Dextrose 50% 25 Gm/50 Ml Syringe IV PUSH PRN PRN Hypoglycemia Protocol Enoxaparin Sodium 40 mg 10/17/24 11:15 10/17/24 11:36 Enoxaparin 40 Mg/0.4 Ml Syringe SUB-Q 40 mg DAILY GAVIN Administration Gabapentin 100 mg 10/16/24 21:00 10/17/24 20:06 Gabapentin 100 Mg Capsule PO 100 mg HS GAVIN Administration Glucagon 1 mg 10/16/24 13:19 Glucagon For Inj 1 Mg Vial IM PRN PRN Hypoglycemia Protocol Glucose 15 gm 10/16/24 13:19 Glucose Oral Gel 15 Gm Of Glucse In 37.5 Gm Tube PO PRN PRN Hypoglycemia Protocol Dextrose 1,000 mls @ 100 mls/hr 10/16/24 13:19 Dextrose 5% 1,000 Ml IVPB PRN PRN Hypoglycemia Protocol Insulin Aspart 1 - 3 units 10/16/24 21:00 10/17/24 20:05 Insulin Aspart (*Bkc) 100 Units/Ml SUB-Q 1 units HS GAVIN Administration Protocol Insulin Aspart 3 - 6 units 10/18/24 06:00 10/18/24 06:30 Insulin Aspart (*Bkc) 100 Units/Ml SUB-Q Not Given Q6HR GAVIN Protocol Morphine Sulfate 2 mg 10/16/24 03:43 10/18/24 06:38 Morphine Sulfate (*Crx) 2 Mg/Ml Inj IV PUSH 2 mg Q2H PRN Administration Pain Rated 7-10 Ondansetron HCl 4 mg 10/16/24 03:43 10/16/24 21:22 Ondansetron Inj 4 Mg/2 Ml Vial IV PUSH 4 mg Q4H PRN Administration Nausea Radiology Results: ITS Impressions Chest X-Ray 10/16/24 07:36 Impression: No definite acute abnormality. COPD and/or bibasilar chronic interstitial change. Labs 10/18/24 04:17 10/18/24 04:17 Labs: Laboratory Results - last 24 hr 10/17/24 10/17/24 10/17/24 08:38 11:28 16:47 WBC RBC Hgb Hct MCV MCH MCHC RDW Plt Count MPV % Immature Plt Fraction Sodium Potassium Chloride Carbon Dioxide Anion Gap BUN Creatinine Estim Creat Clear Calc Estimated GFR Glucose POC Capillary Glucose 175 H 220 H 213 H Calcium Magnesium 10/17/24 10/18/24 10/18/24 20:05 00:45 04:17 WBC 8.9 RBC 3.51 L Hgb 11.1 L Hct 33.6 L MCV 95.7 MCH 31.6 MCHC 33.0 RDW 13.8 Plt Count 125 L MPV 9.8 % Immature Plt Fraction 2.0 Sodium 137 Potassium 3.8 Chloride 105 Carbon Dioxide 27 Anion Gap 5 BUN 10 Creatinine 0.67 L Estim Creat Clear Calc 64 Estimated GFR > 60 Glucose 194 H POC Capillary Glucose 211 H 167 H Calcium 7.9 L Magnesium 2.0 ASA Classification/Sedation ASA Classification/Sedation ASA Class: III Emergent: No Risks: Risks, benefits and alternatives explained and patient/family accepted plan for sedation. Patient re-evaluated immediately prior to sedation.
--- NOTE | 2024-10-18 08:34 | ECG_ITS ---
Test Date: 2024-10-18 09:16:32 Measurements Intervals Dexter Rate: 69 P: 50 NM: 198 QRS: -79 QRSD: 173 T: 93 QT: 483 QTc: 519 Interpretive Statements ELECTRONIC VENTRICULAR PACEMAKER Compared to ECG 10/17/2024 02:13:11 No significant changes Electronically Signed On 10-18-2024 15:48:14 [employer] OPERATOR by Saad Ovalle M.D.
--- NOTE | 2024-10-18 08:36 | P.PCNCC_ITS ---
Cardiac Cath Procedure Note Date of procedure:: 10/18/24 Performing physician:: Kenyon Snow MD Indication:: Acquired complete heart block Brief clinical history:: This is an 83-year-old woman who presented to the hospital with symptoms of lightheadedness, sense of presyncope and shortness of breath. She also had some sharp atypical sounding chest pain. She was found to have complete heart block and a temporary transvenous wire was placed via the femoral vein. Procedure Procedure performed:: Permanent pacemaker implantation Sedation/Medication given:: Fentanyl 50 mg Versed 2 mg Case start time 7:41 a.m. Case end time 8:28 a.m. Sedation provided by Lainey Rollins R.N., trained observer Access site:: Left subclavian vein Estimated blood loss:: Minimal Procedure note:: The patient was brought to the cardiac catheterization lab in the postabsorptive state and placed on the table for pacemaker implant. The left anterior chest wall was prepped and draped in the normal sterile fashion. Anesthesia was then given with 20 cc of lidocaine infiltrated inferior to the clavicle. Incision was then made about 1 in below the clavicle from the midclavicular line to the deltopectoral groove. Following this sharp and blunt dissection was used to separate the subcutaneous fat to the level of the prepectoral fascia. Electrocautery was used to provide cutaneous hemostasis. After this blunt dissection was used to create a pacemaker pocket inferior to the incision. The pocket was then packed with antibiotic soaked 4 x 4. The attention was then turned to venous access. Using the 2 separate 6 Welsh SafeSheath kits the left subclavian vein was punctured twice using the modified Seldinger technique and with J wires were advanced under fluoroscopic visualization to the level of the right atrium. Using the 2 6 Welsh safe sheaths the pacemaker leads detailed below were placed into the venous circulation and advanced into the right atrial position. Following this the safe sheaths were peeled away. Attention was then turned to positioning the ventricular lead. This done it was withdrawn and a 3 cc syringe was used to for formulated J tipped stylet and then use this stylet to to steer the lead through the RVR the pulmonary artery position. A straight stylet was then placed into the lead was withdrawn and placed into the right ventricular apex. The fixation screw was deployed appropriate pacing and sensing performance was then demonstrated. A 10 volts stimulus fails to show any evidence of extracardiac stimulation. Following this attention was turned to positioning the atrial lead. Stylet was withdrawn a preformed atrial J stylet was placed into the lead was then positioned in the right atrial appendag e. The fixation screw was then deployed and upon withdrawal of the stylet the lead tip was fixed into position. Once again the analyzer was used to assess the lead performance in appropriate pacing and sensing performs was demonstrated as well as once again a 10 volt similar showing no evidence of extracardiac stimulation. After this the leads were then sutured to the base of the pocket using the 2-0 silk ties and the suture sleeves on the leads. The pocket was then irrigated with antibiotic infused saline after the retained sponge was removed. The pacemaker generator detailed below was then connected to the leads using the torque wrench and the entire assembly was placed into the newly created pocket. This was then closed in layers using 3-0 Vicryl in a interrupted fashion for the subcutaneous tissue and 4-0 Vicryl in a running subcuticular fashion for the skin. The wound was dressed with an Aquacel dressing left arm will be placed in an immobilizer and she was taken back to her room in stable condition. The procedure was successful, unremarkable and well tolerated. Findings:: The patient received a Biotronik dual-chamber pacemaker model Amvia Edge [id number]. Serial number [id number]. Device is programmed in the DDD mode lower rate limit 60 upper rate limit 120. The atrial lead is a Biotronik screw-in bipolar lead model Solia [id number]. Serial number [id number]. The P-waves are sensed at 2.1 mV threshold 0.9 volts at 0.4 milliseconds pacing impedance 469 Ohms. The ventricular lead is a Biotronik screw-in bipolar lead model Solia [id number]. Serial number [id number]. The R-waves are sensed at 10.1 mV threshold 0.8 volts at 0.4 milliseconds pacing impedance 566 Ohms. Conclusion:: 1. Successful uncomplicated implantation of permanent Biotronik dual-chamber pacing system for treatment of acquired complete heart block in this 83-year-old lady with history of hypertension and diabetes 2. Removal of right femoral vein temporary transvenous wire at the conclusion of the procedure under fluoroscopic visualization Kenyon Snow MD [facility]
[2024-10-18] MEDS: ASPIRIN 81 MG CHEWABLE TABLET PO (09:46)
[2024-10-18] MEDS: FUROSEMIDE 20 MG TABLET PO (09:46)
[2024-10-18] MEDS: ENOXAPARIN 40 MG/0.4 ML SYRINGE SUB-Q (09:47)
[2024-10-18] MEDS: MULTIVITAMINS THERAPEUTIC TAB (*BKC) 1 TABLET PO (09:47)
[2024-10-18] MEDS: LOSARTAN POTASSIUM 50 MG TABLET BY MOUTH (09:47)
[2024-10-18] MEDS: CALCIUM ACETATE 667 MG TABLET 1334 MG PO (09:47)
[2024-10-18] MEDS: SODIUM CHLORIDE 0.9% IV 1,000 ML 50 ML IV CONT (09:53)
[2024-10-18] MEDS: VITAMIN B COMPLEX CAPSULE 1 CAP PO (09:55)
[2024-10-18] MEDS: ACETAMINOPHEN 325 MG TABLET 650 MG PO ×2 (10:15→20:27)
--- NOTE | 2024-10-18 10:45 | WPDINTPN ---
Progress Note: A&P Assessment and Plan (1) Complete heart block: Code(s): I44.2 - Atrioventricular block, complete Status: Acute Assessment and Plan: Patient with complete heart block status permanent pacemaker placement by Cardiology this morning Stable hemodynamic Monitor site (2) Non-ST elevation CO (NSTEMI): Code(s): I21.4 - Non-ST elevation (NSTEMI) myocardial infarction Status: Acute Assessment and Plan: Patient presented with chest pain, elevated troponins, no ST elevation on EKG -10/16: Coronary angiogram with no acute coronary artery disease and no intervention -continue aspirin, statin -cardiology following the patient Echo Summary 1. Left ventricular chamber dimension is normal. 2. There is mildly increased left ventricular wall thickness. 3. Left ventricular systolic function is moderately reduced with an ejection fraction by Biplane Method of Discs of 38 %. 4. There is hypokinesis of the mid-distal LV. 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 5. The left ventricular diastolic function is grade I diastolic dysfunction. 6. Right ventricular systolic function is normal. 7. Left atrial chamber dimension is mildly enlarged. 8. There is mild mitral valve regurgitation. 9. There is mild tricuspid valve regurgitation. (3) DM2 (diabetes mellitus, type 2): Code(s): E11.9 - Type 2 diabetes mellitus without complications Status: Chronic Assessment and Plan: Since patient is not eating much will hold off her insulin pump -continue Accu-Cheks and sliding scale insulin for now Continue gabapentin for diabetic neuropathy (4) Mixed hyperlipidemia: Code(s): E78.2 - Mixed hyperlipidemia Status: Chronic Assessment and Plan: Atorvastatin that she takes at home (5) Cardiomyopathy: Code(s): I42.9 - Cardiomyopathy, unspecified Status: Acute Assessment and Plan: Presented with elevated troponin. Also had complete heart block. Cardiac catheterization did not show any significant coronary disease. Echo shows finding suggestive of takotsubo cardiomyopathy Summary 1. Left ventricular chamber dimension is normal. 2. There is mildly increased left ventricular wall thickness. 3. Left ventricular systolic function is moderately reduced with an ejection fraction by Biplane Method of Discs of 38 %. 4. There is hypokinesis of the mid-distal LV. 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 5. The left ventricular diastolic function is grade I diastolic dysfunction. 6. Right ventricular systolic function is normal. 7. Left atrial chamber dimension is mildly enlarged. 8. There is mild mitral valve regurgitation. 9. There is mild tricuspid valve regurgitation. Continue aspirin statin Lasix ARB Management per Cardiology Plan DVT prophylaxis: Lovenox Stress ulcer prophylaxis: Not indicated Nutrition: Heart healthy diet Code Status: Full code Transfer out ICU today Subjective Date/time seen: 10/18/24 Patient had permanent pacemaker placement this morning. She states she is feeling good apart from leg cramps that she has been having. Patient denies fever, chest pain, shortness of breath, cough, nausea vomiting, abdominal pain,, diarrhea, headache or constipation. All other systems were reviewed and were negative Patient is afebrile. Stable blood pressure. She is on room air She has been tolerating oral diet and urine output has been good Review of Systems Review of Systems: All systems reviewed & are unremarkable except as noted in HPI and below Exam Narrative: General: Pleasant female in no acute distress HEENT:? Pupils equal and reactive, scan is clear, dry oral mucosa Neck:? Supple Respiratory:? Clear to auscultation bilaterally, no wheezing, decreased air entry at bases ice pack on permanent pacemaker site Cardiac:? Paced rhythm Abdomen:? Soft, nontender, nondistended, normoactive bowel sounds Extremities:? Right groin site without any evidence of ecchymosis or hematoma. Neuro:? Patient is awake, alert, oriented x3, answers to questions appropriately and follows simple commands in all extremities Skin:? No lesions noted, warm and dry Psych:? Normal mentation and affect Objective Data Vital Signs Vital Signs: Vital Signs - 24 hr 10/17/24 12:00 10/17/24 12:00 10/17/24 12:00 Temperature Pulse Rate 53 L 50 L Pulse Rate [Right Pedal (Dorsalis Pedis) Palpation] 50 L Respiratory Rate 15 Blood Pressure Pulse Oximetry 100 Oxygen Delivery Room Air Oxygen Flow Rate 10/17/24 12:00 10/17/24 14:00 10/17/24 14:00 Temperature Pulse Rate 50 L 51 L 52 L Pulse Rate [Right Pedal (Dorsalis Pedis) Palpation] Respiratory Rate 12 17 Blood Pressure 120/52 L 125/47 L Pulse Oximetry 100 96 Oxygen Delivery Oxygen Flow Rate 10/17/24 16:00 10/17/24 16:00 10/17/24 16:00 Temperature Pulse Rate 52 L 52 L 56 L Pulse Rate [Right Pedal (Dorsalis Pedis) Palpation] Respiratory Rate 13 150 H Blood Pressure 128/45 L Pulse Oximetry 100 98 Oxygen Delivery Nasal Cannula Oxygen Flow Rate 2 10/17/24 18:00 10/17/24 18:00 10/17/24 20:00 Temperature 37.6 C H Pulse Rate 52 L 53 L 59 L Pulse Rate [Right Pedal (Dorsalis Pedis) Palpation] Respiratory Rate 15 15 Blood Pressure 122/42 L 122/47 L Pulse Oximetry 97 97 Oxygen Delivery Oxygen Flow Rate 10/17/24 20:00 10/17/24 20:00 10/17/24 20:00 Temperature Pulse Rate 66 66 Pulse Rate [Right Pedal (Dorsalis Pedis) Palpation] 66 Respiratory Rate 16 Blood Pressure Pulse Oximetry 97 Oxygen Delivery Nasal Cannula Oxygen Flow Rate 2 10/17/24 20:28 10/17/24 22:00 10/17/24 22:00 Temperature 37.4 C Pulse Rate 55 L 55 L Pulse Rate [Right Pedal (Dorsalis Pedis) Palpation] Respiratory Rate 18 Blood Pressure 116/48 L Pulse Oximetry 98 98 Oxygen Delivery Oxygen Flow Rate 10/18/24 00:00 10/18/24 00:00 10/18/24 00:00 Temperature 37.1 C Pulse Rate 50 L 50 L Pulse Rate [Right Pedal (Dorsalis Pedis) Palpation] 50 L Respiratory Rate 12 12 Blood Pressure 98/38 L Pulse Oximetry 98 98 Oxygen Delivery Nasal Cannula Oxygen Flow Rate 2 10/18/24 00:00 10/18/24 02:00 10/18/24 02:00 Temperature 37.2 C Pulse Rate 50 L 50 L 50 L Pulse Rate [Right Pedal (Dorsalis Pedis) Palpation] Respiratory Rate 18 Blood Pressure 107/37 L Pulse Oximetry 98 Oxygen Delivery Oxygen Flow Rate 10/18/24 04:00 10/18/24 04:00 10/18/24 04:00 Temperature 37.4 C Pulse Rate 50 L 50 L Pulse Rate [Right Pedal (Dorsalis Pedis) Palpation] 50 L Respiratory Rate 17 17 Blood Pressure 114/35 L Pulse Oximetry 96 96 Oxygen Delivery Nasal Cannula Oxygen Flow Rate 2 10/18/24 04:00 10/18/24 06:00 10/18/24 06:00 Temperature 37.3 C Pulse Rate 50 L 50 L 50 L Pulse Rate [Right Pedal (Dorsalis Pedis) Palpation] Respiratory Rate 16 Blood Pressure 115/94 H Pulse Oximetry 97 Oxygen Delivery Oxygen Flow Rate 10/18/24 06:45 10/18/24 06:45 10/18/24 08:49 Temperature Pulse Rate 50 L 68 Pulse Rate [Right Pedal (Dorsalis Pedis) Palpation] 50 L Respiratory Rate 16 Blood Pressure Pulse Oximetry 97 Oxygen Delivery Nasal Cannula Oxygen Flow Rate 2 10/18/24 08:49 10/18/24 08:55 10/18/24 09:19 Temperature 36.9 C 36.9 C 36.9 C Pulse Rate 70 70 72 Pulse Rate [Right Pedal (Dorsalis Pedis) Palpation] Respiratory Rate 16 13 18 Blood Pressure 146/67 H 134/60 143/65 H Pulse Oximetry 95 95 96 Oxygen Delivery Oxygen Flow Rate 10/18/24 10:00 10/18/24 10:00 10/18/24 10:19 Temperature 37.0 C 36.9 C Pulse Rate 67 67 68 Pulse Rate [Right Pedal (Dorsalis Pedis) Palpation] Respiratory Rate 16 17 Blood Pressure 126/53 L 103/89 Pulse Oximetry 95 96 Oxygen Delivery Oxygen Flow Rate Intake/Output Intake/Output: Intake & Output 10/15/24 10/16/24 10/17/24 10/18/24 23:59 23:59 23:59 23:59 Intake Total 2240 1480 960 Output Total 1450 1500 Balance 2240 30 -540 Meds/Results Medications: Active Medications Generic Name Dose Route Start Last Admin Trade Name Freq PRN Reason Stop Dose Admin Acetaminophen 650 mg 10/16/24 03:43 10/18/24 10:15 Acetaminophen 325 Mg Tablet PO 650 mg Q4H PRN Administration Mild Pain (1-3) or Fever Aspirin 81 mg 10/16/24 12:00 10/18/24 09:46 Aspirin 81 Mg Chewable Tablet PO 81 mg DAILY@0800 [facility] Administration Atorvastatin Calcium 10 mg 10/16/24 21:00 10/17/24 20:06 Atorvastatin 10 Mg Tablet BY MOUTH 10 mg QHS GAVIN Administration Calcium Acetate 1,334 mg 10/18/24 09:00 10/18/24 09:47 Calcium Acetate 667 Mg Tablet PO 11/17/24 08:59 1,334 mg DAILY G[facility]IN Administration Dextrose 12.5 gm 10/16/24 13:19 Dextrose 50% 25 Gm/50 Ml Syringe IV PUSH PRN PRN Hypoglycemia Protocol Diphenhydramine HCl 25 mg 10/18/24 08:35 Diphenhydramine Hcl Cap 25 Mg Capsule PO HS PRN sleep Enoxaparin Sodium 40 mg 10/17/24 11:15 10/18/24 09:47 Enoxaparin 40 Mg/0.4 Ml Syringe SUB-Q 40 mg DAILY G[facility]IN Administration Furosemide 20 mg 10/18/24 09:00 10/18/24 09:46 Furosemide 20 Mg Tablet PO 20 mg QAM GAVIN Administration Gabapentin 100 mg 10/16/24 21:00 10/17/24 20:06 Gabapentin 100 Mg Capsule PO 100 mg HS [facility]IN Administration Glucagon 1 mg 10/16/24 13:19 Glucagon For Inj 1 Mg Vial IM PRN PRN Hypoglycemia Protocol Glucose 15 gm 10/16/24 13:19 Glucose Oral Gel 15 Gm Of Glucse In 37.5 Gm Tube PO PRN PRN Hypoglycemia Protocol Dextrose 1,000 mls @ 100 mls/hr 10/16/24 13:19 Dextrose 5% 1,000 Ml IVPB PRN PRN Hypoglycemia Protocol Sodium Chloride 1,000 mls @ 50 mls/hr 10/18/24 08:35 10/18/24 09:53 Normal Saline Iv IV CONT 10/18/24 16:34 50 mls/hr .Q20H [facility] Administration Cefazolin Sodium 1 gm in 50 mls @ 100 mls/hr 10/18/24 14:00 Ancef 1 Gm/Ns 50 Ml IVPB 10/18/24 22:29 Q8H [facility] Insulin Aspart 1 - 3 units 10/16/24 21:00 10/17/24 20:05 Insulin Aspart (*Bkc) 100 Units/Ml SUB-Q 1 units HS [facility] Administration Protocol Insulin Aspart 3 - 6 units 10/18/24 06:00 10/18/24 06:30 Insulin Aspart (*Bkc) 100 Units/Ml SUB-Q Not Given Q6HR [facility] Protocol Insulin Aspart 36.95 units 10/18/24 09:00 Insulin Aspart (*Bkc) 100 Units/Ml SUB-Q DAILY [facility] Insulin Human NPH 0 units 10/18/24 08:35 Insulin Human Nph (*Bkc) 100 Units/Ml SUB-Q .COMPLEX [facility] Losartan Potassium 50 mg 10/18/24 09:00 10/18/24 09:47 Losartan Potassium 50 Mg Tablet BY MOUTH 50 mg QAM [facility] Administration Miscellaneous Information 0 each 10/18/24 00:01 Nonformulary Drug (Liraglutide [Victoza 2-Khadar] 0.6 Mg/0.1 Ml (18 Mg/3 Ml) Pen Injector) XX 11/17/24 00:00 CLARIFY [facility] Miscellaneous Information 0 each 10/18/24 00:01 Nonformulary Drug (Magnesium 30 Mg Tablet)- Not Stocked. Please Change To Formulary Med If XX 11/17/24 00:00 CLARIFY [facility] Miscellaneous Information 0 each 10/18/24 00:01 Please Enter Insulin Pump Order Set As Appropriate. Thanks XX 11/17/24 00:00 CLARIFY [facility] Miscellaneous Information 0 each 10/18/24 00:01 Clarify Vit D Dose- Normal Dose 1000mcg-2000mcg Daily. XX 11/17/24 00:00 CLARIFY [facility] Morphine Sulfate 2 mg 10/16/24 03:43 10/18/24 06:38 Morphine Sulfate (*Crx) 2 Mg/Ml Inj IV PUSH 2 mg Q2H PRN Administration Pain Rated 7-10 Multivitamins Therapeutic 1 tablet 10/18/24 09:00 10/18/24 09:47 Multivitamins Therapeutic Tab (*Bkc) PO 1 tablet DAILY [facility] Administration Non-Formulary Medication 0 mg 10/18/24 08:45 Liraglutide [Victoza 2-Khadar] SUB-Q 11/17/24 08:44 .COMPLEX [facility] Non-Formulary Medication 30 mg 10/18/24 09:00 Magnesium PO 11/17/24 08:59 BID [facility] Non-Formulary Medication 1 each 10/18/24 08:48 Nonformulary Nutritional Supplement XX 10/19/24 08:47 PRN PRN PROTOCOL Ondansetron HCl 4 mg 10/16/24 03:43 10/16/24 21:22 Ondansetron Inj 4 Mg/2 Ml Vial IV PUSH 4 mg Q4H PRN Administration Nausea Vitamin B Complex 1 cap 10/18/24 09:00 10/18/24 09:55 Vitamin B Complex Capsule PO 1 cap DAILY [facility] Administration Vitamin D units 10/18/24 09:00 Cholecalciferol 1,000 Units Tablet PO BID [facility] Radiology Results: ITS Impressions Chest X-Ray 10/18/24 09:50 IMPRESSION: No significant change from previous examination. Labs Labs: Laboratory Results - last 24 hr 10/17/24 10/17/24 10/17/24 11:28 16:47 20:05 WBC RBC Hgb Hct MCV MCH MCHC RDW Plt Count MPV % Immature Plt Fraction Sodium Potassium Chloride Carbon Dioxide Anion Gap BUN Creatinine Estim Creat Clear Calc Estimated GFR Glucose POC Capillary Glucose 220 H 213 H 211 H Calcium Magnesium 10/18/24 10/18/24 00:45 04:17 WBC 8.9 RBC 3.51 L Hgb 11.1 L Hct 33.6 L MCV 95.7 MCH 31.6 MCHC 33.0 RDW 13.8 Plt Count 125 L MPV 9.8 % Immature Plt Fraction 2.0 Sodium 137 Potassium 3.8 Chloride 105 Carbon Dioxide 27 Anion Gap 5 BUN 10 Creatinine 0.67 L Estim Creat Clear Calc 64 Estimated GFR > 60 Glucose 194 H POC Capillary Glucose 167 H Calcium 7.9 L Magnesium 2.0
--- NOTE | 2024-10-18 10:50 | PCFNICU ---
ICU Rounding Note: Pt current nutrition is NPO for procedure. Previous heart healthy Nutrition recommendation: Advance diet to previous heart healthy when medically able. Last recorded weight is 90.4 kg. Bowel Motility: No BMs. Last BM 10/14/24 Labs Reviewed: Hgb 11.1, Hct 33.6, Cre 0.67, Glu 194 Meds Noted: Novolog, lasix Skin: No pressure Additional Notes: NPO for procedure today. Intakes 25-100% on heart healthy diet yesterday. Resume Enlive BID (350 kcal, 20 g protein each) Following daily in ICU rounds. Monitoring intakes, weights, labs, supplement tolerance, plan of care Follow up in 5 days.
[2024-10-18 11:28] LABS: Glucose Point of Care 233 mg/dl (65-105)
[2024-10-18] MEDS: INSULIN ASPART (*BKC) 100 UNITS/ML SUB-Q ×2 (12:33→17:00)
[2024-10-18] MEDS: ceFAZolin 1 GM/NS 50 ML 1 GM/50 ML BAG IVPB ×2 (13:28→20:30)
[2024-10-18 16:58] LABS: Glucose Point of Care 327 mg/dl (65-105)
--- NOTE | 2024-10-18 18:12 | PM.IMPN ---
Progress Note: A&P Assessment and Plan (1) Complete heart block: Code(s): I44.2 - Atrioventricular block, complete Status: Acute (2) Non-ST elevation IN (NSTEMI): Code(s): I21.4 - Non-ST elevation (NSTEMI) myocardial infarction Status: Acute (3) DM2 (diabetes mellitus, type 2): Code(s): E11.9 - Type 2 diabetes mellitus without complications Status: Chronic (4) Essential (primary) hypertension: Code(s): I10 - Essential (primary) hypertension Status: Chronic Plan Patient is 83-year-old female had been having chest discomfort for last few months however last night the pain woke up the patient from sleep and patient presented emergency department for further evaluation, patient EKG showed patient had a complete heart block patient was seen by welt stitcher and recommending patient will need pacemaker, patient was taken to the laborer cook house and temporary pacemaker and CXR was normal, today patient was seen by her welt stitcher, today patient had a cardiac ECHO, which showed reduced EF 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 will continue to monitor and further recommendation to follow. 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 will continue to monitor and further recommendation to follow. Review of Systems Review of Systems: All systems reviewed & are unremarkable except as noted in HPI and below Exam Narrative: Patient is comfortable, NAD HEENT: eyes are clear and none icteric LUNGS:CTA HEART: RR S1S2 ABD: BS+, Soft and nontender Lower extremities: no edema SKIN: nonjaundiced Neuro: grossly intact. Objective Data Vital Signs Vital Signs: Vital Signs - 24 hr 10/17/24 20:00 10/17/24 20:00 10/17/24 20:00 Temperature 37.6 C H Pulse Rate 59 L 66 Pulse Rate [Right Pedal (Dorsalis Pedis) Palpation] 66 Respiratory Rate 15 16 Blood Pressure 122/47 L Pulse Oximetry 97 97 Oxygen Delivery Nasal Cannula Oxygen Flow Rate 2 10/17/24 20:00 10/17/24 20:28 10/17/24 22:00 Temperature Pulse Rate 66 55 L Pulse Rate [Right Pedal (Dorsalis Pedis) Palpation] Respiratory Rate Blood Pressure Pulse Oximetry 98 Oxygen Delivery Oxygen Flow Rate 10/17/24 22:00 10/18/24 00:00 10/18/24 00:00 Temperature 37.4 C 37.1 C Pulse Rate 55 L 50 L 50 L Pulse Rate [Right Pedal (Dorsalis Pedis) Palpation] Respiratory Rate 18 12 12 Blood Pressure 116/48 L 98/38 L Pulse Oximetry 98 98 98 Oxygen Delivery Nasal Cannula Oxygen Flow Rate 2 10/18/24 00:00 10/18/24 00:00 10/18/24 02:00 Temperature 37.2 C Pulse Rate 50 L 50 L Pulse Rate [Right Pedal (Dorsalis Pedis) Palpation] 50 L Respiratory Rate 18 Blood Pressure 107/37 L Pulse Oximetry 98 Oxygen Delivery Oxygen Flow Rate 10/18/24 02:00 10/18/24 04:00 10/18/24 04:00 Temperature Pulse Rate 50 L 50 L Pulse Rate [Right Pedal (Dorsalis Pedis) Palpation] 50 L Respiratory Rate 17 Blood Pressure Pulse Oximetry 96 Oxygen Delivery Nasal Cannula Oxygen Flow Rate 2 10/18/24 04:00 10/18/24 04:00 10/18/24 06:00 Temperature 37.4 C Pulse Rate 50 L 50 L 50 L Pulse Rate [Right Pedal (Dorsalis Pedis) Palpation] Respiratory Rate 17 Blood Pressure 114/35 L Pulse Oximetry 96 Oxygen Delivery Oxygen Flow Rate 10/18/24 06:00 10/18/24 06:45 10/18/24 06:45 Temperature 37.3 C Pulse Rate 50 L 50 L Pulse Rate [Right Pedal (Dorsalis Pedis) Palpation] 50 L Respiratory Rate 16 16 Blood Pressure 115/94 H Pulse Oximetry 97 97 Oxygen Delivery Nasal Cannula Oxygen Flow Rate 2 10/18/24 08:49 10/18/24 08:49 10/18/24 08:55 Temperature 36.9 C 36.9 C Pulse Rate 68 70 70 Pulse Rate [Right Pedal (Dorsalis Pedis) Palpation] Respiratory Rate 16 13 Blood Pressure 146/67 H 134/60 Pulse Oximetry 95 95 Oxygen Delivery Oxygen Flow Rate 10/18/24 09:19 10/18/24 10:00 10/18/24 10:00 Temperature 36.9 C 37.0 C Pulse Rate 72 67 67 Pulse Rate [Right Pedal (Dorsalis Pedis) Palpation] Respiratory Rate 18 16 Blood Pressure 143/65 H 126/53 L Pulse Oximetry 96 95 Oxygen Delivery Oxygen Flow Rate 10/18/24 10:19 10/18/24 12:00 10/18/24 12:00 Temperature 36.9 C 36.6 C Pulse Rate 68 60 66 Pulse Rate [Right Pedal (Dorsalis Pedis) Palpation] Respiratory Rate 17 12 Blood Pressure 103/89 135/58 L Pulse Oximetry 96 98 Oxygen Delivery Oxygen Flow Rate 10/18/24 12:00 10/18/24 14:00 10/18/24 14:00 Temperature 36.7 C Pulse Rate 66 60 60 Pulse Rate [Right Pedal (Dorsalis Pedis) Palpation] Respiratory Rate 16 12 Blood Pressure 129/59 L Pulse Oximetry 97 100 Oxygen Delivery Nasal Cannula Oxygen Flow Rate 2 10/18/24 16:00 10/18/24 16:00 10/18/24 16:00 Temperature 36.7 C Pulse Rate 61 60 60 Pulse Rate [Right Pedal (Dorsalis Pedis) Palpation] Respiratory Rate 15 16 Blood Pressure 125/57 L Pulse Oximetry 97 97 Oxygen Delivery Nasal Cannula Oxygen Flow Rate 2 10/18/24 17:09 Temperature Pulse Rate Pulse Rate [Right Pedal (Dorsalis Pedis) Palpation] Respiratory Rate Blood Pressure Pulse Oximetry 98 Oxygen Delivery Nasal Cannula Oxygen Flow Rate 2 Intake/Output Intake/Output: Intake & Output 10/15/24 10/16/24 10/17/24 10/18/24 23:59 23:59 23:59 23:59 Intake Total 2240 1480 1970 Output Total 1450 3275 Balance 2240 30 -1305 Meds/Results Medications: Active Medications Generic Name Dose Route Start Last Admin Trade Name Freq PRN Reason Stop Dose Admin Acetaminophen 650 mg 10/16/24 03:43 10/18/24 10:15 Acetaminophen 325 Mg Tablet PO 650 mg Q4H PRN Administration Mild Pain (1-3) or Fever Aspirin 81 mg 10/16/24 12:00 10/18/24 09:46 Aspirin 81 Mg Chewable Tablet PO 81 mg DAILY@0800 [facility] Administration Atorvastatin Calcium 10 mg 10/16/24 21:00 10/17/24 20:06 Atorvastatin 10 Mg Tablet BY MOUTH 10 mg QHS GAVIN Administration Calcium Acetate 1,334 mg 10/18/24 09:00 10/18/24 09:47 Calcium Acetate 667 Mg Tablet PO 11/17/24 08:59 1,334 mg DAILY [facility] Administration Dextrose 12.5 gm 10/16/24 13:19 Dextrose 50% 25 Gm/50 Ml Syringe IV PUSH PRN PRN Hypoglycemia Protocol Diphenhydramine HCl 25 mg 10/18/24 08:35 Diphenhydramine Hcl Cap 25 Mg Capsule PO HS PRN sleep Enoxaparin Sodium 40 mg 10/17/24 11:15 10/18/24 09:47 Enoxaparin 40 Mg/0.4 Ml Syringe SUB-Q 40 mg DAILY [facility] Administration Furosemide 20 mg 10/18/24 09:00 10/18/24 09:46 Furosemide 20 Mg Tablet PO 20 mg QAM G[facility]IN Administration Gabapentin 100 mg 10/16/24 21:00 10/17/24 20:06 Gabapentin 100 Mg Capsule PO 100 mg HS [facility] Administration Glucagon 1 mg 10/16/24 13:19 Glucagon For Inj 1 Mg Vial IM PRN PRN Hypoglycemia Protocol Glucose 15 gm 10/16/24 13:19 Glucose Oral Gel 15 Gm Of Glucse In 37.5 Gm Tube PO PRN PRN Hypoglycemia Protocol Dextrose 1,000 mls @ 100 mls/hr 10/16/24 13:19 Dextrose 5% 1,000 Ml IVPB PRN PRN Hypoglycemia Protocol Cefazolin Sodium 1 gm in 50 mls @ 100 mls/hr 10/18/24 14:00 10/18/24 14:00 Ancef 1 Gm/Ns 50 Ml IVPB 10/18/24 22:29 Infused Q8H [facility] Infusion Insulin Aspart 1 - 3 units 10/16/24 21:00 10/17/24 20:05 Insulin Aspart (*Bkc) 100 Units/Ml SUB-Q 1 units HS [facility] Administration Protocol Insulin Aspart 3 - 6 units 10/18/24 12:00 10/18/24 17:00 Insulin Aspart (*Bkc) 100 Units/Ml SUB-Q 5 units TIDWM [facility] Administration Protocol Insulin Human NPH 0 units 10/18/24 08:35 Insulin Human Nph (*Bkc) 100 Units/Ml SUB-Q .COMPLEX [facility] Losartan Potassium 50 mg 10/18/24 09:00 10/18/24 09:47 Losartan Potassium 50 Mg Tablet BY MOUTH 50 mg QAM [facility] Administration Morphine Sulfate 2 mg 10/16/24 03:43 10/18/24 06:38 Morphine Sulfate (*Crx) 2 Mg/Ml Inj IV PUSH 2 mg Q2H PRN Administration Pain Rated 7-10 Multivitamins Therapeutic 1 tablet 10/18/24 09:00 10/18/24 09:47 Multivitamins Therapeutic Tab (*Bkc) PO 1 tablet DAILY [facility] Administration Non-Formulary Medication 1 each 10/18/24 08:48 Nonformulary Nutritional Supplement XX 10/19/24 08:47 PRN PRN PROTOCOL Ondansetron HCl 4 mg 10/16/24 03:43 10/16/24 21:22 Ondansetron Inj 4 Mg/2 Ml Vial IV PUSH 4 mg Q4H PRN Administration Nausea Vitamin B Complex 1 cap 10/18/24 09:00 10/18/24 09:55 Vitamin B Complex Capsule PO 1 cap DAILY [facility] Administration Radiology Results: ITS Impressions Chest X-Ray 10/18/24 09:50 IMPRESSION: No significant change from previous examination. Labs Labs: Laboratory Results - last 24 hr 10/17/24 10/18/24 10/18/24 20:05 00:45 04:17 WBC 8.9 RBC 3.51 L Hgb 11.1 L Hct 33.6 L MCV 95.7 MCH 31.6 MCHC 33.0 RDW 13.8 Plt Count 125 L MPV 9.8 % Immature Plt Fraction 2.0 Sodium 137 Potassium 3.8 Chloride 105 Carbon Dioxide 27 Anion Gap 5 BUN 10 Creatinine 0.67 L Estim Creat Clear Calc 64 Estimated GFR > 60 Glucose 194 H POC Capillary Glucose 211 H 167 H Calcium 7.9 L Magnesium 2.0 10/18/24 10/18/24 11:15 16:54 WBC RBC Hgb Hct MCV MCH MCHC RDW Plt Count MPV % Immature Plt Fraction Sodium Potassium Chloride Carbon Dioxide Anion Gap BUN Creatinine Estim Creat Clear Calc Estimated GFR Glucose POC Capillary Glucose 233 H 327 H Calcium Magnesium
[2024-10-18] MEDS: GABAPENTIN 100 MG CAPSULE PO (20:27)
[2024-10-18] MEDS: ATORVASTATIN 10 MG TABLET BY MOUTH (20:27)
[2024-10-19] VITALS (11 sets, daily range): BP systolic 116–146; BP diastolic 50–62; PULSE 60–68; RESP 12–18; TEMP 36–36.9; O2SAT 94–100; BMI 31.6
--- NOTE | 2024-10-19 00:48 | PC.NURSE ---
0000: Patient reporting that her blood sugar is dropping rapidly as it went from 357 to 155, after the reconnection of her insulin pump. Patient got permission from provider on days to use home CGM and insulin pump. Patient paused insulin administration on pump, and this RN instructed patient that we can monitor it until the morning when she can better program her new pump and CGM. Patient agreed.
[2024-10-19 03:56] LABS: Hematocrit 34.1 % (37.0-47.0); Hemoglobin 11.3 g/dL (12.0-15.0); Mean Corpuscular HGB Conc 33.1 g/dl (32-36); Mean Corpuscular Hemoglobin 31.3 pg (26-34); Mean Corpuscular Volume 94.5 fl (80-100); Mean Platelet Volume 9.9 fl (7.4-10.4); Platelet Count Result 159 k/mm3 (150-375); Red Blood Count 3.61 M/mm3 (4.2-5.4); Red Cell Distribution Width 13.1 % (11.5-14.5); White Blood Count 10.9 K/mm3 (4.5-10.0)
[2024-10-19 04:10] LABS: Anion Gap 6 mmol/L (4-12); Blood Urea Nitrogen 13 mg/dL (7-17); Calcium 8.4 mg/dL (8.4-10.2); Carbon Dioxide 28 mmol/L (22-30); Chloride 104 mmol/L (98-107); Estimated CRCL calculation 66 ml/min; Estimated Glomerular Filt Rate > 60; Glucose 108 mg/dL (65-110); Magnesium 2.1 mg/dL (1.6-2.3); Potassium 3.8 mmol/L (3.4-5.0); Sodium 138 mmol/L (137-145)
[2024-10-19 08:06] LABS: Glucose Point of Care 148 mg/dl (65-105)
[2024-10-19] MEDS: ASPIRIN 81 MG CHEWABLE TABLET PO (09:41)
[2024-10-19] MEDS: VITAMIN B COMPLEX CAPSULE 1 CAP PO (09:41)
[2024-10-19] MEDS: LOSARTAN POTASSIUM 50 MG TABLET BY MOUTH (09:41)
[2024-10-19] MEDS: CALCIUM ACETATE 667 MG TABLET 1334 MG PO (09:41)
[2024-10-19] MEDS: MULTIVITAMINS THERAPEUTIC TAB (*BKC) 1 TABLET PO (09:41)
[2024-10-19] MEDS: ENOXAPARIN 40 MG/0.4 ML SYRINGE SUB-Q (09:41)
[2024-10-19] MEDS: FUROSEMIDE 20 MG TABLET PO (09:41)
--- NOTE | 2024-10-19 10:26 | P.PNIM_ITS ---
Progress Note: A&P Assessment and Plan (1) Complete heart block: Code(s): I44.2 - Atrioventricular block, complete Status: Acute Assessment and Plan: Patient with complete heart block status permanent pacemaker placement by Cardiology this morning Stable hemodynamic Monitor site (2) Non-ST elevation [place] (NSTEMI): Code(s): I21.4 - Non-ST elevation (NSTEMI) myocardial infarction Status: Acute Assessment and Plan: Patient presented with chest pain, elevated troponins, no ST elevation on EKG -10/16: Coronary angiogram with no acute coronary artery disease and no intervention -continue aspirin, statin -cardiology following the patient Echo Summary 1. Left ventricular chamber dimension is normal. 2. There is mildly increased left ventricular wall thickness. 3. Left ventricular systolic function is moderately reduced with an ejection fraction by Biplane Method of Discs of 38 %. 4. There is hypokinesis of the mid-distal LV. 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 5. The left ventricular diastolic function is grade I diastolic dysfunction. 6. Right ventricular systolic function is normal. 7. Left atrial chamber dimension is mildly enlarged. 8. There is mild mitral valve regurgitation. 9. There is mild tricuspid valve regurgitation. (3) DM2 (diabetes mellitus, type 2): Code(s): E11.9 - Type 2 diabetes mellitus without complications Status: Chronic Assessment and Plan: Patient is back on insulin pump and there is some issue with the settings although the pump shows that it is administrating basal insulin rate Consult scaffolder to assist patient with insulin pump Add sliding scale insulin to monitor and administer additional insulin as needed Continue gabapentin for diabetic neuropathy (4) Mixed hyperlipidemia: Code(s): E78.2 - Mixed hyperlipidemia Status: Chronic Assessment and Plan: Atorvastatin that she takes at home (5) Cardiomyopathy: Code(s): I42.9 - Cardiomyopathy, unspecified Status: Acute Assessment and Plan: Presented with elevated troponin. Also had complete heart block. Cardiac catheterization did not show any significant coronary disease. Echo shows finding suggestive of takotsubo cardiomyopathy Summary 1. Left ventricular chamber dimension is normal. 2. There is mildly increased left ventricular wall thickness. 3. Left ventricular systolic function is moderately reduced with an ejection fraction by Biplane Method of Discs of 38 %. 4. There is hypokinesis of the mid-distal LV. 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 5. The left ventricular diastolic function is grade I diastolic dysfunction. 6. Right ventricular systolic function is normal. 7. Left atrial chamber dimension is mildly enlarged. 8. There is mild mitral valve regurgitation. 9. There is mild tricuspid valve regurgitation. Continue aspirin statin Lasix ARB Management per Cardiology CXR shows pulmonary edema will continue with Lasix Plan DVT prophylaxis: Lovenox Stress ulcer prophylaxis: Not indicated Nutrition: Heart healthy diet Code Status: Full code Transfer to [facility] today Subjective Date/time seen: 10/19/24 Overnight events reviewed. Afebrile Denies any new complaints. She felt winded on exertion. On room air otherwise. Denies any pain. All other systems were reviewed and were negative Last night patient was transition to subcutaneous insulin pump. This morning the pump is not working properly as it is not communicating with her Dexcom. She told me that insulin pump is actually giving at the basal insulin but she is unable to monitor her blood sugars. Her Dexcom was off on the table Good urine output Review of Systems Review of Systems: All systems reviewed & are unremarkable except as noted in HPI and below Exam Narrative: General: Pleasant female in no acute distress HEENT:? Pupils equal and reactive, scan is clear, dry oral mucosa Neck:? Supple Respiratory:? Clear to auscultation bilaterally, bibasilar crackles, dressing at the pacemaker site Cardiac:? Paced rhythm Abdomen:? Soft, nontender, nondistended, normoactive bowel sounds Extremities:? Right groin site without any evidence of ecchymosis or hematoma. Neuro:? Patient is awake, alert, oriented x3, answers to questions appropriately and follows simple commands in all extremities Skin:? No lesions noted, warm and dry Psych:? Normal mentation and affect Objective Data Vital Signs Vital Signs: Vital Signs - 24 hr 10/18/24 12:00 10/18/24 12:00 10/18/24 12:00 Temperature 36.6 C Pulse Rate 60 66 66 Respiratory Rate 12 16 Blood Pressure 135/58 L Pulse Oximetry 98 97 Oxygen Delivery Nasal Cannula Oxygen Flow Rate 2 10/18/24 14:00 10/18/24 14:00 10/18/24 16:00 Temperature 36.7 C 36.7 C Pulse Rate 60 60 61 Respiratory Rate 12 15 Blood Pressure 129/59 L 125/57 L Pulse Oximetry 100 97 Oxygen Delivery Oxygen Flow Rate 10/18/24 16:00 10/18/24 16:00 10/18/24 17:09 Temperature Pulse Rate 60 60 Respiratory Rate 16 Blood Pressure Pulse Oximetry 97 98 Oxygen Delivery Nasal Cannula Nasal Cannula Oxygen Flow Rate 2 2 10/18/24 18:00 10/18/24 20:00 10/18/24 20:00 Temperature 37.0 C Pulse Rate 68 64 64 Respiratory Rate 16 16 Blood Pressure 127/55 L Pulse Oximetry 93 93 Oxygen Delivery Room Air Oxygen Flow Rate 10/18/24 20:00 10/18/24 22:00 10/19/24 00:00 Temperature Pulse Rate 65 64 Respiratory Rate Blood Pressure Pulse Oximetry 95 Oxygen Delivery Room Air Oxygen Flow Rate 10/19/24 00:00 10/19/24 00:00 10/19/24 02:00 Temperature 36.6 C Pulse Rate 65 68 61 Respiratory Rate 15 Blood Pressure 116/62 Pulse Oximetry 96 Oxygen Delivery Oxygen Flow Rate 10/19/24 04:00 10/19/24 04:00 10/19/24 04:00 Temperature 36.4 C L Pulse Rate 60 60 Respiratory Rate 16 Blood Pressure 132/54 L Pulse Oximetry 96 96 Oxygen Delivery Room Air Oxygen Flow Rate 10/19/24 06:00 10/19/24 08:00 Temperature 36.7 C Pulse Rate 60 60 Respiratory Rate 12 Blood Pressure 130/59 L Pulse Oximetry 94 Oxygen Delivery Oxygen Flow Rate Intake/Output Intake/Output: Intake & Output 10/16/24 10/17/24 10/18/24 10/19/24 23:59 23:59 23:59 23:59 Intake Total 2240 1480 2019 1999 Output Total 1450 3275 1800 Balance 2240 30 -1255 200 Meds/Results Medications: Active Medications Generic Name Dose Route Start Last Admin Trade Name Freq PRN Reason Stop Dose Admin Acetaminophen 650 mg 10/16/24 03:43 10/18/24 20:27 Acetaminophen 325 Mg Tablet PO 650 mg Q4H PRN Administration Mild Pain (1-3) or Fever Aspirin 81 mg 10/16/24 12:00 10/19/24 09:41 Aspirin 81 Mg Chewable Tablet PO 81 mg DAILY@0800 GAVIN Administration Atorvastatin Calcium 10 mg 10/16/24 21:00 10/18/24 20:27 Atorvastatin 10 Mg Tablet BY MOUTH 10 mg QHS GAVIN Administration Calcium Acetate 1,334 mg 10/18/24 09:00 10/19/24 09:41 Calcium Acetate 667 Mg Tablet PO 11/17/24 08:59 1,334 mg DAILY GAVIN Administration Dextrose 12.5 gm 10/16/24 13:19 Dextrose 50% 25 Gm/50 Ml Syringe IV PUSH PRN PRN Hypoglycemia Protocol Diphenhydramine HCl 25 mg 10/18/24 08:35 Diphenhydramine Hcl Cap 25 Mg Capsule PO HS PRN sleep Enoxaparin Sodium 40 mg 10/17/24 11:15 10/19/24 09:41 Enoxaparin 40 Mg/0.4 Ml Syringe SUB-Q 40 mg DAILY GAVIN Administration Furosemide 20 mg 10/18/24 09:00 10/19/24 09:41 Furosemide 20 Mg Tablet PO 20 mg QAM GAVIN Administration Gabapentin 100 mg 10/16/24 21:00 10/18/24 20:27 Gabapentin 100 Mg Capsule PO 100 mg HS GAVIN Administration Glucagon 1 mg 10/16/24 13:19 Glucagon For Inj 1 Mg Vial IM PRN PRN Hypoglycemia Protocol Glucose 15 gm 10/16/24 13:19 Glucose Oral Gel 15 Gm Of Glucse In 37.5 Gm Tube PO PRN PRN Hypoglycemia Protocol Dextrose 1,000 mls @ 100 mls/hr 10/16/24 13:19 Dextrose 5% 1,000 Ml IVPB PRN PRN Hypoglycemia Protocol Insulin Aspart 3 - 6 units 10/19/24 12:00 Insulin Aspart (*Bkc) 100 Units/Ml SUB-Q TIDWM [facility] Protocol Insulin Aspart 1 - 3 units 10/19/24 21:00 Insulin Aspart (*Bkc) 100 Units/Ml SUB-Q HS [facility] Protocol Losartan Potassium 50 mg 10/18/24 09:00 10/19/24 09:41 Losartan Potassium 50 Mg Tablet BY MOUTH 50 mg QAM GAVIN Administration Morphine Sulfate 2 mg 10/16/24 03:43 10/18/24 06:38 Morphine Sulfate (*Crx) 2 Mg/Ml Inj IV PUSH 2 mg Q2H PRN Administration Pain Rated 7-10 Multivitamins Therapeutic 1 tablet 10/18/24 09:00 10/19/24 09:41 Multivitamins Therapeutic Tab (*Bkc) PO 1 tablet DAILY GAVIN Administration Ondansetron HCl 4 mg 10/16/24 03:43 10/16/24 21:22 Ondansetron Inj 4 Mg/2 Ml Vial IV PUSH 4 mg Q4H PRN Administration Nausea Vitamin B Complex 1 cap 10/18/24 09:00 10/19/24 09:41 Vitamin B Complex Capsule PO 1 cap DAILY GAVIN Administration Radiology Results: ITS Impressions Chest X-Ray 10/19/24 09:20 IMPRESSION: 1. Diffuse interstitial pattern in the lungs, consistent with mild pulmonary edema and/or chronic interstitial lung disease. 2. Small pleural effusions. Labs Labs: Laboratory Results - last 24 hr 10/18/24 10/18/24 10/19/24 11:15 16:54 03:43 WBC 10.9 H RBC 3.61 L Hgb 11.3 L Hct 34.1 L MCV 94.5 MCH 31.3 MCHC 33.1 RDW 13.1 Plt Count 159 MPV 9.9 Sodium 138 Potassium 3.8 Chloride 104 Carbon Dioxide 28 Anion Gap 6 BUN 13 Creatinine 0.65 L Estim Creat Clear Calc 66 Estimated GFR > 60 Glucose 108 POC Capillary Glucose 233 H 327 H Calcium 8.4 Magnesium 2.1 10/19/24 08:02 WBC RBC Hgb Hct MCV MCH MCHC RDW Plt Count MPV Sodium Potassium Chloride Carbon Dioxide Anion Gap BUN Creatinine Estim Creat Clear Calc Estimated GFR Glucose POC Capillary Glucose 148 H Calcium Magnesium
[2024-10-19 11:38] LABS: Glucose Point of Care 127 mg/dl (65-105)
--- NOTE | 2024-10-19 11:41 | PM.PNCARD ---
Progress Note: A&P Assessment and Plan (1) Complete heart block: Code(s): I44.2 - Atrioventricular block, complete Status: Acute (2) Mixed hyperlipidemia: Code(s): E78.2 - Mixed hyperlipidemia Status: Chronic (3) Cardiomyopathy: Code(s): I42.9 - Cardiomyopathy, unspecified Status: Acute (4) Coronary artery disease: Code(s): I25.10 - Atherosclerotic heart disease of [place] coronary artery without angina pectoris Status: Acute Plan 83-year-old woman with diabetes, hypertension, and hyperlipidemia who presented with chest discomfort Sinus rhythm with complete AV block -status post permanent pacemaker -can follow-up outpatient Systolic cardiomyopathy -continue losartan 50 mg p.o. daily and Lasix 20 mg p.o. daily -will eventually add beta-lake[place] outpatient -can follow up outpatient Coronary artery disease -aspirin 81 mg p.o. daily and would up titrate atorvastatin to 40 mg every evening Patient is doing well status post permanent pacemaker and can be discharged today. She will follow up with Dr. Snow in clinic. Subjective Date/time seen: 10/19/24 11:41 Interval history: Denies any chest pain or shortness of breath. Has some incisional pain. No lower extremity swelling. No orthopnea Review of Systems Cardiovascular: Cardiovascular: Reports as per HPI Respiratory: Respiratory: Reports as per HPI Exam Const: General: comfortable HENMT: Mouth: Yes moist mucous membranes Eyes: EOM: EOMs intact bilaterally Neck: Neck: no JVD Resp: Effort & Inspection: normal respiratory effort Auscultation: clear to auscultation bilaterally Cardio: Rate: regular rate Rhythm: regular rhythm Other: Pacemaker pocket without hematoma. Dressing intact. GI: GI Palp: Yes Soft to palpation Extrem: General: no pedal edema Objective Data Vital Signs Vital Signs: Vital Signs - 24 hr 10/18/24 12:00 10/18/24 12:00 10/18/24 12:00 Temperature 36.6 C Pulse Rate 60 66 66 Respiratory Rate 12 16 Blood Pressure 135/58 L Pulse Oximetry 98 97 Oxygen Delivery Nasal Cannula Oxygen Flow Rate 2 10/18/24 14:00 10/18/24 14:00 10/18/24 16:00 Temperature 36.7 C 36.7 C Pulse Rate 60 60 61 Respiratory Rate 12 15 Blood Pressure 129/59 L 125/57 L Pulse Oximetry 100 97 Oxygen Delivery Oxygen Flow Rate 03/05/25 16:00 10/18/24 16:00 10/18/24 17:09 Temperature Pulse Rate 60 60 Respiratory Rate 16 Blood Pressure Pulse Oximetry 97 98 Oxygen Delivery Nasal Cannula Nasal Cannula Oxygen Flow Rate 2 2 10/18/24 18:00 10/18/24 20:00 10/18/24 20:00 Temperature 37.0 C Pulse Rate 68 64 64 Respiratory Rate 16 16 Blood Pressure 127/55 L Pulse Oximetry 93 93 Oxygen Delivery Room Air Oxygen Flow Rate 10/18/24 20:00 10/18/24 22:00 10/19/24 00:00 Temperature Pulse Rate 65 64 Respiratory Rate Blood Pressure Pulse Oximetry 95 Oxygen Delivery Room Air Oxygen Flow Rate 10/19/24 00:00 10/19/24 00:00 10/19/24 02:00 Temperature 36.6 C Pulse Rate 65 68 61 Respiratory Rate 15 Blood Pressure 116/62 Pulse Oximetry 96 Oxygen Delivery Oxygen Flow Rate 10/19/24 04:00 10/19/24 04:00 10/19/24 04:00 Temperature 36.4 C L Pulse Rate 60 60 Respiratory Rate 16 Blood Pressure 132/54 L Pulse Oximetry 96 96 Oxygen Delivery Room Air Oxygen Flow Rate 10/19/24 06:00 10/19/24 08:00 10/19/24 08:00 Temperature 36.7 C Pulse Rate 60 60 63 Respiratory Rate 12 Blood Pressure 130/59 L Pulse Oximetry 94 Oxygen Delivery Oxygen Flow Rate 10/19/24 10:00 Temperature Pulse Rate 61 Respiratory Rate Blood Pressure Pulse Oximetry Oxygen Delivery Oxygen Flow Rate Intake/Output Intake/Output: Intake & Output 10/16/24 10/17/24 10/18/24 10/19/24 23:59 23:59 23:59 23:59 Intake Total 2240 1480 2020 2450 Output Total 1450 3275 1800 Balance 2240 30 -1255 650 Meds/Results Medications: Active Medications Generic Name Dose Route Start Last Admin Trade Name Freq PRN Reason Stop Dose Admin Acetaminophen 650 mg 10/16/24 03:43 10/18/24 20:27 Acetaminophen 325 Mg Tablet PO 650 mg Q4H PRN Administration Mild Pain (1-3) or Fever Aspirin 81 mg 10/16/24 12:00 10/19/24 09:41 Aspirin 81 Mg Chewable Tablet PO 81 mg DAILY@0800 GAVIN Administration Atorvastatin Calcium 10 mg 10/16/24 21:00 10/18/24 20:27 Atorvastatin 10 Mg Tablet BY MOUTH 10 mg QHS GAVIN Administration Calcium Acetate 1,334 mg 10/18/24 09:00 10/19/24 09:41 Calcium Acetate 667 Mg Tablet PO 11/17/24 08:59 1,334 mg DAILY GAVIN Administration Dextrose 12.5 gm 10/16/24 13:19 Dextrose 50% 25 Gm/50 Ml Syringe IV PUSH PRN PRN Hypoglycemia Protocol Diphenhydramine HCl 25 mg 10/18/24 08:35 Diphenhydramine Hcl Cap 25 Mg Capsule PO HS PRN sleep Enoxaparin Sodium 40 mg 10/17/24 11:15 10/19/24 09:41 Enoxaparin 40 Mg/0.4 Ml Syringe SUB-Q 40 mg DAILY GAVIN Administration Furosemide 20 mg 10/18/24 09:00 10/19/24 09:41 Furosemide 20 Mg Tablet PO 20 mg QAM GAVIN Administration Gabapentin 100 mg 10/16/24 21:00 10/18/24 20:27 Gabapentin 100 Mg Capsule PO 100 mg HS GVAIN Administration Glucagon 1 mg 10/16/24 13:19 Glucagon For Inj 1 Mg Vial IM PRN PRN Hypoglycemia Protocol Glucose 15 gm 10/16/24 13:19 Glucose Oral Gel 15 Gm Of Glucse In 37.5 Gm Tube PO PRN PRN Hypoglycemia Protocol Dextrose 1,000 mls @ 100 mls/hr 10/16/24 13:19 Dextrose 5% 1,000 Ml IVPB PRN PRN Hypoglycemia Protocol Insulin Aspart 3 - 6 units 10/19/24 12:00 Insulin Aspart (*Bkc) 100 Units/Ml SUB-Q TIDWM [facility] Protocol Insulin Aspart 1 - 3 units 10/19/24 21:00 Insulin Aspart (*Bkc) 100 Units/Ml SUB-Q HS [facility] Protocol Losartan Potassium 50 mg 10/18/24 09:00 10/19/24 09:41 Losartan Potassium 50 Mg Tablet BY MOUTH 50 mg QAM GAVIN Administration Morphine Sulfate 2 mg 10/16/24 03:43 10/18/24 06:38 Morphine Sulfate (*Crx) 2 Mg/Ml Inj IV PUSH 2 mg Q2H PRN Administration Pain Rated 7-10 Multivitamins Therapeutic 1 tablet 10/18/24 09:00 10/19/24 09:41 Multivitamins Therapeutic Tab (*Bkc) PO 1 tablet DAILY GAVIN Administration Ondansetron HCl 4 mg 10/16/24 03:43 10/16/24 21:22 Ondansetron Inj 4 Mg/2 Ml Vial IV PUSH 4 mg Q4H PRN Administration Nausea Vitamin B Complex 1 cap 10/18/24 09:00 10/19/24 09:41 Vitamin B Complex Capsule PO 1 cap DAILY GAVIN Administration Radiology Results: ITS Impressions Chest X-Ray 10/19/24 09:20 IMPRESSION: 1. Diffuse interstitial pattern in the lungs, consistent with mild pulmonary edema and/or chronic interstitial lung disease. 2. Small pleural effusions. Labs Labs: Laboratory Results - last 24 hr 10/18/24 10/19/24 10/19/24 16:54 03:43 08:02 WBC 10.9 H RBC 3.61 L Hgb 11.3 L Hct 34.1 L MCV 94.5 MCH 31.3 MCHC 33.1 RDW 13.1 Plt Count 159 MPV 9.9 Sodium 138 Potassium 3.8 Chloride 104 Carbon Dioxide 28 Anion Gap 6 BUN 13 Creatinine 0.65 L Estim Creat Clear Calc 66 Estimated GFR > 60 Glucose 108 POC Capillary Glucose 327 H 148 H Calcium 8.4 Magnesium 2.1 10/19/24 11:30 WBC RBC Hgb Hct MCV MCH MCHC RDW Plt Count MPV Sodium Potassium Chloride Carbon Dioxide Anion Gap BUN Creatinine Estim Creat Clear Calc Estimated GFR Glucose POC Capillary Glucose 127 H Calcium Magnesium
[2024-10-19] MEDS: FUROSEMIDE INJ 40 MG/4 ML VIAL IV PUSH (13:57)
[2024-10-19] MEDS: POTASSIUM CHLORIDE 20 MEQ ER TABLET 40 MEQ PO (14:04)
--- NOTE | 2024-10-19 16:00 | PC.NURSE ---
This patient, Melanie Hutton, was transferred to [[id number] ] on 10/19/24 at 1631. Personal belongings sent with patient. Report given to [jojo ]. Appropriate documentation sent with patient.
--- NOTE | 2024-10-19 16:13 | PC.NURSE ---
This patient, Melanie Hutton, was received from [facility] on 10/19/24 at 1613. Patient/family oriented to unit policies and routines
[2024-10-19] MEDS: ACETAMINOPHEN 325 MG TABLET 650 MG PO (16:27)
[2024-10-19 16:50] LABS: Glucose Point of Care 103 mg/dl (65-105)
[2024-10-19] MEDS: ATORVASTATIN 40 MG TABLET BY MOUTH (20:00)
[2024-10-19] MEDS: GABAPENTIN 100 MG CAPSULE PO (20:00)
[2024-10-19 20:54] LABS: Glucose Point of Care 118 mg/dl (65-105)
[2024-10-20] VITALS: PULSE 90
[2024-10-20 04:00] VITALS: PULSE 60
[2024-10-20] MEDS: ACETAMINOPHEN 325 MG TABLET 650 MG PO (04:10)
[2024-10-20] MEDS: diphenhydrAMINE HCl CAP 25 MG CAPSULE PO (04:10)
[2024-10-20 05:18] VITALS: BP 131/53; PULSE 61; RESP 16; TEMP 36.7; O2SAT 95
[2024-10-20 05:37] LABS: Hematocrit 32.5 % (37.0-47.0); Hemoglobin 10.8 g/dL (12.0-15.0); Mean Corpuscular HGB Conc 33.2 g/dl (32-36); Mean Corpuscular Hemoglobin 31.6 pg (26-34); Mean Platelet Volume 9.5 fl (7.4-10.4); Platelet Count Result 161 k/mm3 (150-375); Red Blood Count 3.42 M/mm3 (4.2-5.4); Red Cell Distribution Width 13.6 % (11.5-14.5); White Blood Count 8.2 K/mm3 (4.5-10.0)
[2024-10-20 05:43] LABS: Anion Gap 4 mmol/L (4-12); Blood Urea Nitrogen 18 mg/dL (7-17); Calcium 8.3 mg/dL (8.4-10.2); Carbon Dioxide 31 mmol/L (22-30); Chloride 105 mmol/L (98-107); Estimated CRCL calculation 61 ml/min; Estimated Glomerular Filt Rate > 60; Glucose 93 mg/dL (65-110); Potassium 3.8 mmol/L (3.4-5.0); Sodium 140 mmol/L (137-145)
[2024-10-20 08:00] VITALS: BP 129/65; PULSE 59; PULSE 60; RESP 18; TEMP 36.3; O2SAT 100
[2024-10-20 08:27] LABS: Glucose Point of Care 79 mg/dl (65-105)
[2024-10-20] MEDS: MULTIVITAMINS THERAPEUTIC TAB (*BKC) 1 TABLET PO (08:55)
[2024-10-20] MEDS: VITAMIN B COMPLEX CAPSULE 1 CAP PO (08:55)
[2024-10-20] MEDS: LOSARTAN POTASSIUM 50 MG TABLET BY MOUTH (08:55)
[2024-10-20] MEDS: ASPIRIN 81 MG CHEWABLE TABLET PO (08:55)
[2024-10-20] MEDS: CALCIUM ACETATE 667 MG TABLET 1334 MG PO (08:55)
[2024-10-20] MEDS: FUROSEMIDE 20 MG TABLET PO (08:55)
[2024-10-20] MEDS: ENOXAPARIN 40 MG/0.4 ML SYRINGE SUB-Q (09:00)
--- NOTE | 2024-10-20 11:56 | PM.DS ---
DS: Admitting Diagnosis Discharge Date 10/20/2024 Admitting Diagnosis Chest pain. DS: Discharge Diagnosis Discharge Diagnosis (1) Complete heart block: Code(s): I44.2 - Atrioventricular block, complete Status: Acute (2) Non-ST elevation [place] (NSTEMI): Code(s): I21.4 - Non-ST elevation (NSTEMI) myocardial infarction Status: Acute (3) DM2 (diabetes mellitus, type 2): Code(s): E11.9 - Type 2 diabetes mellitus without complications Status: Chronic (4) Essential (primary) hypertension: Code(s): I10 - Essential (primary) hypertension Status: Chronic DS: Summary Hospital Course Hospital Course: Patient is 83-year-old female had been having chest discomfort for last few months however last night the pain woke up the patient from sleep and patient presented emergency department for further evaluation, patient EKG showed patient had a complete heart block patient was seen by supervisor [facility] and recommending patient will need pacemaker, patient was taken to the labor arbitrator hearing office and temporary pacemaker and CXR was normal, today patient was seen by her supervisor [facility], today patient had a cardiac ECHO, which showed reduced EF 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 Patient is clinically stable has no complaints, seen by Cardiology will discharge the patient today Time Spent with Patient Time attestation: Total time spent providing and/or coordinating discharge services: Exam Narrative: Patient is comfortable, NAD HEENT: eyes are clear and none icteric LUNGS:CTA HEART: RR S1S2 ABD: BS+, Soft and nontender Lower extremities: no edema SKIN: nonjaundiced Neuro: grossly intact. DS: Data Data Completed and Pending Labs on day of discharge: Labs from last 24 hours 10/20/24 10/20/24 10/19/24 08:22 05:07 20:32 WBC 8.2 RBC 3.42 L Hgb 10.8 L Hct 32.5 L MCV 95.0 MCH 31.6 MCHC 33.2 RDW 13.6 Plt Count 161 MPV 9.5 Sodium 140 Potassium 3.8 Chloride 105 Carbon Dioxide 31 H Anion Gap 4 BUN 18 H Creatinine 0.70 Estim Creat Clear Calc 61 Estimated GFR > 60 Glucose 93 POC Capillary Glucose 79 118 H Calcium 8.3 L Magnesium 2.0 10/19/24 16:46 WBC RBC Hgb Hct MCV MCH MCHC RDW Plt Count MPV Sodium Potassium Chloride Carbon Dioxide Anion Gap BUN Creatinine Estim Creat Clear Calc Estimated GFR Glucose POC Capillary Glucose 103 Calcium Magnesium Discharge Plan Discharge Attending physician on discharge: Malaika Durant Consulting providers: Lee Monson; Saad Ovalle; Tiara Sarkar; Allen Bo; Kenyon Snow; Juan Ochoa; Tom Sabillon; Floyd Thrasher V. Discharging Clinician: Emy Alanis Patient Disposition: Home, Self-Care Activity: as tolerated Diet: heart healthy Discharge Instructions: [facility] [address] [place], [place] [id number] DISCHARGE INSTRUCTIONS - POST PACEMAKER Activity 1. No driving until you are seen in the office for your incision check. 2. No lifting, pushing or pulling more than 5 pounds with affected arm for 1 MONTH 3. No lifting affected arm above shoulder height for 1 MONTH 4. Wear immobilizer/sling only if you are unable to remember the above activity restrictions. Recommend that it be worn at night. 5. You may shower AFTER you are seen for incision check but no tub baths, swimming pool or hot tub for 1MONTH Wound Care 1. Do not attempt to remove the Aquacel dressing. Leave dressing undisturbed until incision check at the office visit. Keep dressing dry. 2. When you are able to shower AFTER you are seen for your incision check in the office do not rub or scrub the incision. Pat dry after shower. NO lotions, powders, creams or ointments are to be applied to the incision 3. A small amount of tenderness, puffiness and bruising around the site is normal. Call if any significant pain, drainage, swelling, or redness around the site 4. Wear a bra to support the breast tissue and avoid pulling on the incision. Pad the bra strap if necessary with soft smooth cloth. *For any other questions please call the office at [phone]. Office hours are 8AM 4:30PM Wednesday through Wednesday. Patient to follow discharge care instruction from her supervisor [facility] and follow up as scheduled. patient to follow up with her primary care provider as soon as possible. patient is instructed if any symptoms redevelop to go to nearest ER. Patient Instructions: Antibiotic Form, Pacemaker (DC) Patient Language: Portuguese Stand Alone Forms: General Discharge Information Follow-up/Referrals: Lee Monson MD [Physician] - (10/26/24 at 9:00 Arrive at 8:45) Wood,Joshua Flores MD [Primary Care Provider] - Discharge Medications: New aspirin [Children's Aspirin] 81 mg Tablet,Chewable 81 mg PO DAILY@0800 Qty: 30 0RF dextrose [Glutose-15] 40 % Gel 15 g PO PRN PRN (Reason: Hypoglycemia) Qty: 112.5 0RF Continued cholecalciferol (vitamin D3) 50 mcg (2,000 unit) capsule 100 mcg PO BID glucagon 1 mg kit 1 mg .Route PRN PRN (Reason: Hyperglycemia) Rx Instructions: when needed insulin aspart U-100 [Novolog U-100 Insulin aspart] 100 unit/mL solution 36.95 unit SUB-Q DAILY Rx Instructions: VIA PUMP 24 HOURS BASAL RATE Novolin N NPH U-100 Insulin 100 unit/mL suspension See Rx Instructions .ROUTE .COMPLEX Rx Instructions: inject 13 units under the skin every 8 hrs when off insulin pump: TDD 39 units vitamin B complex [B Complex-Vitamin B12] Tablet 2 tablet PO DAILY Victoza 2-Khadar 0.6 mg/0.1 mL (18 mg/3 mL) pen injector See Rx Instructions subcut .COMPLEX Rx Instructions: inject 0.6mg subcutaneously once daily x 7 days; then 1.2mg daily, not to exceed 1.8mg/day subcut multivitamin [Daily Multi-Vitamin] Tablet 1 tablet PO DAILY omega-3 fatty acids 100 mg tablet,chewable 100 mg PO DAILY gabapentin 100 mg capsule 100 mg PO HS diphenhydramine HCl [Benadryl] 25 mg capsule 25 mg PO HS PRN (Reason: sleep) calcium acetate 667 mg tablet 1,334 mg PO DAILY magnesium 30 mg tablet 30 mg PO BID tizanidine 4 mg tablet 4 mg PO TID PRN (Reason: muscle spasticity) Qty: 90 11RF losartan 50 mg tablet See Rx Instructions .ROUTE .COMPLEX Qty: 90 3RF Dose Instruction: Take 1 tablet by mouth once daily Rx Instructions: Take 1 tablet by mouth once daily furosemide 20 mg tablet See Rx Instructions .ROUTE .COMPLEX Qty: 90 3RF Dose Instruction: Take 1 tablet by mouth once daily Rx Instructions: Take 1 tablet by mouth once daily atorvastatin 10 mg tablet See Rx Instructions .ROUTE .COMPLEX Qty: 90 3RF Dose Instruction: Take 1 tablet by mouth once daily Rx Instructions: Take 1 tablet by mouth once daily Date of admission: 10/16/24 07:41 Primary Care Provider: Wood,Joshua Flores Admitting Provider: Malaika Durant Attending physician on admission: Emy Alanis Condition: Stable
[2024-10-20 12:10] LABS: Glucose Point of Care 59 mg/dl (65-105)
[2024-10-20 12:42] LABS: Glucose Point of Care 102 mg/dl (65-105)
--- NOTE | 2024-10-23 15:16 | PCCDE ---
10/23/24 DM educator courtesy follow up call attempt. Message left including direct call back number. FJ.
== END 2024-10-20 14:45 | disposition home or self-care (01) | DRG 242 ==
LOC: ANHED 03:44 → ANHIMU 05:12 → ANHICU 10-17 12:44 → ANH2MED 10-20 11:53 → ANHICU 10-23 09:35 → ANHIMU 10-23 09:35
PROVIDERS: Internal Medicine; Specialist; Admitting Provider Internal Medicine; Emergency Provider Emergency Medicine; PCP Family Medicine; Visit Provider Family Medicine
PROC: 4A023N7 Measurement of Cardiac Sampling and Pressure, Left Heart, Percutaneous Approach (ICD-10-PCS; CPT 93452; principal; 2024-10-16 11:30)
PROC: 4A023N7 Measurement of Cardiac Sampling and Pressure, Left Heart, Percutaneous Approach (ICD-10-PCS; CPT 33210; 2024-10-16 11:30)
PROC: 4A033BC Measurement of Arterial Pressure, Coronary, Percutaneous Approach (ICD-10-PCS; CPT 93571; 2024-10-16 11:30)
PROC: 4A023N7 Measurement of Cardiac Sampling and Pressure, Left Heart, Percutaneous Approach (ICD-10-PCS; 2024-10-16 11:30)
PROC: 0JH606Z Insertion of Pacemaker, Dual Chamber into Chest Subcutaneous Tissue and Fascia, Open Approach (ICD-10-PCS; CPT 33208; principal; 2024-10-18 07:30)
DX: I44.2 Atrioventricular block, complete (principal); I21.4 Non-ST elevation (NSTEMI) myocardial infarction; I42.9 Cardiomyopathy, unspecified; I51.81 Takotsubo syndrome; I10 Essential (primary) hypertension; E78.2 Mixed hyperlipidemia; E11.319 Type 2 diabetes mellitus with unspecified diabetic retinopathy without macular edema; E55.9 Vitamin D deficiency, unspecified; G25.81 Restless legs syndrome; I25.10 Atherosclerotic heart disease of native coronary artery without angina pectoris; M54.16 Radiculopathy, lumbar region; E11.40 Type 2 diabetes mellitus with diabetic neuropathy, unspecified; F32.9 Major depressive disorder, single episode, unspecified; Z96.652 Presence of left artificial knee joint; Z79.4 Long term (current) use of insulin; Z90.710 Acquired absence of both cervix and uterus; Z90.49 Acquired absence of other specified parts of digestive tract; Z96.41 Presence of insulin pump (external) (internal)
CPT/HCPCS: 33208; 33210; 36415; 71045; 71046; 80048; 80053; 82948; 83690; 83735; 84100; 84484; 85025; 85027; 85055; 85610; 85730; 87641; 93005; 93306; 93458; 93571; 96361; 96374; 96375; 96376; 99285; A9270; C1760; C1769; C1779; C1785; C1887; C1894; C8929; G0269; G0378; J0690; J1200; J1644; J1650; J1815; J1940; J2003; J2250; J2270; J2405; J2919; J3010; J3475; J7030; J7040; Q9957